=== PATIENT | female | born 1935 | race Caucasian/White ===

== ENCOUNTER 2017-03-23 17:59 | Inpatient (IN) | payer MEDICARE ==
[2017-03-23] MEDS ORDERED: RX INFO: IV CONTRAST WAS GIVEN 1 EACH MISC MISCELLANE PRN (18:30)
[2017-03-23] MEDS ORDERED: SODIUM CHLORIDE 0.9% 1,000 ML IV STA (18:30)
[2017-03-23] MEDS ORDERED: SODIUM CHLORIDE 0.9% 500 ML IV STA ×2 (18:30→20:58)
[2017-03-23] MEDS ORDERED: PANTOPRAZOLE 40 MG/10 ML VIAL IVP STA (18:30)
--- NOTE | 2017-03-23 18:37 | ED ---
GI Bleed HPI - General Chief complaint: GI Bleed Stated complaint: Rectal Bleeding Time Seen by Provider: 03/23/17 18:25 Source: patient Mode of arrival: wheelchair Limitations: no limitations - History of Present Illness Initial comments: This 81-year-old white female presents with a complaint of some rectal bleeding. She states that she has had approximately 12 episodes of bloody stools today. She relates that it is a darker blood mixed in with her stool. She was diagnosed with urinary tract infection yesterday and started taking Bactrim. This was diagnosed at a clinic near her house. She does complain of some mild diffuse abdominal pain as well. There has been no fevers. She does have a history of colitis and this seems somewhat similar. She denies any other complaints or modifying factors. She does take Motrin regularly for her right shoulder pain. She takes Motrin 800 mg approximately twice a day. She denies any blood thinners. She relates that she was diagnosed with peptic ulcer disease in the past. She also had a colonoscopy approximately 3 years ago but this was somewhat limited study. She has seen Dr. Albrecht in the past. - Related Data Home Medications Medication Instructions Recorded Confirmed Albuterol Nebulized [Ventolin 2.5 mg INHALATION RT-DAILY 10/18/14 03/23/17 Nebulized] Fluticasone/Salmeterol [Advair 2 puff INHALATION RT-BID 10/18/14 03/23/17 250-50 Diskus] Furosemide [Lasix] 20 mg PO DAILY PRN 10/18/14 03/23/17 Ibuprofen [Motrin] 800 mg PO DAILY 10/18/14 03/23/17 Metoprolol Tartrate [Lopressor] 50 mg PO DAILY 10/18/14 03/23/17 Omeprazole [PriLOSEC] 20 mg PO BID 10/18/14 03/23/17 Valsartan/Hydrochlorothiazide 1 tab PO DAILY 10/18/14 03/23/17 [Valsartan-Hctz 160-12.5 mg Tab] Sulfamethox-Tmp 800-160Mg [Bactrim 1 tab PO Q12HR 03/23/17 03/23/17 DS 800-160 mg] Allergies Allergy/AdvReac Type Severity Reaction Status Date / Time aspirin Allergy Rash/Hives Verified 03/23/17 19:06 chlorpheniramine polistirex Allergy Rash/Hives Verified 03/23/17 19:06 [From Tussionex] doxycycline Allergy Rash/Hives Verified 03/23/17 19:06 hydrocodone polistirex Allergy Rash/Hives Verified 03/23/17 19:06 [From Tussionex] levofloxacin Allergy Rash/Hives Verified 03/23/17 19:06 nickel Allergy Rash/Hives Verified 03/23/17 19:06 nitrofurantoin Allergy Rash/Hives Verified 03/23/17 19:06 nitrofurantoin Allergy Rash/Hives Verified 03/23/17 19:06 macrocrystalline [From Macrobid] Penicillins Allergy Rash/Hives Verified 03/23/17 19:06 tramadol HCl [From Ultram] Allergy Itching Verified 03/23/17 19:06 Review of Systems ROS Statement: Those systems with pertinent positive or pertinent negative responses have been documented in the HPI. ROS Other: All systems not noted in ROS Statement are negative. Past Medical History Past Medical History: Cancer, COPD, GERD/Reflux, Hypertension Additional Past Medical History / Comment(s): HX UTERINE CA, HX COLITIS, POLYPS History of Any Multi-Drug Resistant Organisms: None Reported Past Surgical History: Cholecystectomy, Hysterectomy, Joint Replacement Additional Past Surgical History / Comment(s): right knee replacement Past Anesthesia/Blood Transfusion Reactions: No Reported Reaction Past Psychological History: No Psychological Hx Reported Smoking Status: Former smoker Past Alcohol Use History: None Reported Past Drug Use History: None Reported - Past Family History Mother Family Medical History: Cancer Additional Family Medical History / Comment(s): LUNG Son(s) Family Medical History: Cancer General Exam - General Exam Comments Initial Comments: GENERAL: The patient is well nourished and well hydrated. VITAL SIGNS: Heart rate, blood pressure, respiratory rate reviewed as recorded in nurse's notes. EYES: Pupils are round and reactive. Extraocular movements are intact. No conjunctival / lid redness or swelling. ENT: No external evidence of injury, swelling, or ecchymosis. Airway is patent. Throat is clear. NECK: Nontender. No swelling or evidence of injury. No subcutaneous emphysema. Trachea is midline. No thyroid mass. HEART: Regular rate and rhythm. Good peripheral pulses. LUNGS/CHEST: Breath sounds clear and equal bilaterally. No rales, rhonchi, or wheezes. No ecchymosis, subcutaneous emphysema, or tenderness. ABDOMEN: There is mild diffuse tenderness to the abdomen. No palpable masses or organomegaly. No peritoneal signs. No abdominal wall swelling or ecchymosis. EXTREMITIES: No extremity tenderness. Normal muscle tone and function. No thoracolumbar tenderness. NEUROLOGIC: Sensation is grossly intact. Cranial nerve exam reveals face is symmetrical, tongue is midline, speech is clear. SKIN: No abrasions or ecchymosis is noted. No induration or masses noted. PSYCHIATRIC: Alert and oriented. Appropriate behavior and judgment. Limitations: no limitations Course Vital Signs 03/23/17 03/23/17 18:06 20:21 Temperature 97.2 F L 97.9 F Pulse Rate 80 76 Respiratory 18 16 Rate Blood Pressure 99/47 95/54 O2 Sat by Pulse 96 99 Oximetry Medical Decision Making - Medical Decision Making The patient was seen and examined. All diagnostics were reviewed. An IV is started and she is hydrated. She receives some Protonix intravenously. The EKG shows a normal sinus rhythm at a rate of 79. There is no acute ST-T wave changes noted. The LA interval is 158, castration is 74, and the QTc interval is 449. The laboratory is reviewed and appears that she is somewhat dehydrated. She has some renal insufficiency as well as some mild pancreatitis and leukocytosis. The computed tomography scan of abdomen and pelvis does show increased fluid in the colon possibly related to diarrhea or colitis. She has not given a urine yet but states that she did have a significant urinary tract infection which was just diagnosed at the urgent care. It is felt as though she would benefit from some IV antibiotics and these will be initiated. She is agreeable to admission. The exact cause of her GI bleed is not definitively determined. The case will be discussed with medicine in the near future and she will admitted for further treatment. - Lab Data Result diagrams: 03/23/17 18:55 03/23/17 18:55 Lab Results 03/23/17 03/23/17 03/23/17 Range/Units 18:55 18:55 18:55 WBC 17.2 H (3.8-10.6) k/uL RBC 4.12 (3.80-5.40) m/uL Hgb 11.9 (11.4-16.0) gm/dL Hct 37.4 (34.0-46.0) % MCV 90.6 (80.0-100.0) fL MCH 29.0 (25.0-35.0) pg MCHC 32.0 (31.0-37.0) g/dL RDW 14.3 (11.5-15.5) % Plt Count 406 (150-450) k/uL Neutrophils % 79 % Lymphocytes % 13 % Monocytes % 5 % Eosinophils % 2 % Basophils % 0 % Neutrophils # 13.5 H (1.3-7.7) k/uL Lymphocytes # 2.3 (1.0-4.8) k/uL Monocytes # 0.8 (0-1.0) k/uL Eosinophils # 0.4 (0-0.7) k/uL Basophils # 0.0 (0-0.2) k/uL PT 10.5 (9.0-12.0) sec INR 1.0 (<1.2) APTT 22.7 (22.0-30.0) sec Sodium 132 L (137-145) mmol/L Potassium 4.2 (3.5-5.1) mmol/L Chloride 100 (98-107) mmol/L Carbon Dioxide 15 L (22-30) mmol/L Anion Gap 17 mmol/L BUN 39 H (7-17) mg/dL Creatinine 1.70 H (0.52-1.04) mg/dL Est GFR (MDRD) Af Amer 35 (>60 ml/min/1.73 sqM) Est GFR (MDRD) Non-Af 29 (>60 ml/min/1.73 sqM) Glucose 115 H (74-99) mg/dL Plasma Lactic Acid Angelo (0.7-2.0) mmol/L Calcium 8.9 (8.4-10.2) mg/dL Total Bilirubin 0.4 (0.2-1.3) mg/dL AST 21 (14-36) U/L ALT 25 (9-52) U/L Alkaline Phosphatase 106 (38-126) U/L Total Protein 7.2 (6.3-8.2) g/dL Albumin 4.0 (3.5-5.0) g/dL Amylase 138 H (30-110) U/L Lipase 309 H (23-300) U/L Blood Type Blood Type Recheck Antibody Screen Spec Expiration Date 03/23/17 03/23/17 Range/Units 18:55 18:55 WBC (3.8-10.6) k/uL RBC (3.80-5.40) m/uL Hgb (11.4-16.0) gm/dL Hct (34.0-46.0) % MCV (80.0-100.0) fL MCH (25.0-35.0) pg MCHC (31.0-37.0) g/dL RDW (11.5-15.5) % Plt Count (150-450) k/uL Neutrophils % % Lymphocytes % % Monocytes % % Eosinophils % % Basophils % % Neutrophils # (1.3-7.7) k/uL Lymphocytes # (1.0-4.8) k/uL Monocytes # (0-1.0) k/uL Eosinophils # (0-0.7) k/uL Basophils # (0-0.2) k/uL PT (9.0-12.0) sec INR (<1.2) APTT (22.0-30.0) sec Sodium (137-145) mmol/L Potassium (3.5-5.1) mmol/L Chloride (98-107) mmol/L Carbon Dioxide (22-30) mmol/L Anion Gap mmol/L BUN (7-17) mg/dL Creatinine (0.52-1.04) mg/dL Est GFR (MDRD) Af Amer (>60 ml/min/1.73 sqM) Est GFR (MDRD) Non-Af (>60 ml/min/1.73 sqM) Glucose (74-99) mg/dL Plasma Lactic Acid Angelo 2.8 H* (0.7-2.0) mmol/L Calcium (8.4-10.2) mg/dL Total Bilirubin (0.2-1.3) mg/dL AST (14-36) U/L ALT (9-52) U/L Alkaline Phosphatase (38-126) U/L Total Protein (6.3-8.2) g/dL Albumin (3.5-5.0) g/dL Amylase (30-110) U/L Lipase (23-300) U/L Blood Type B Positive Blood Type Recheck B Pos Antibody Screen NEGATIVE Spec Expiration Date 03/26/2017 - 2352 Disposition Clinical Impression: GI bleed, Abdominal pain, Renal insufficiency, Dehydration, Pancreatitis, Leukocytosis, Colitis, Hyponatremia Disposition: ADMITTED IP TO THIS [facility] Condition: Fair Time of Disposition: 21:07 Decision Date: 03/23/17 Decision Time: 21:08
[2017-03-23 19:08] LABS: Basophils % (A) 0 %; CH 28.4; CHCM 31.4; Eosinophils # (A) 0.4 k/uL (0-0.7); Eosinophils % (A) 2 %; HCT 37.4 % (34.0-46.0); HDW 2.53; HGB 11.9 gm/dL (11.4-16.0); Luc # (Auto) 0.24; Luc % (Auto) 1; Lymphocytes # (A) 2.3 k/uL (1.0-4.8); Lymphocytes % (A) 13 %; MCV 90.6 fL (80.0-100.0); Monocytes # (A) 0.8 k/uL (0-1.0); Monocytes % (A) 5 %; Neutrophils # (A) 13.5 k/uL (1.3-7.7); Neutrophils % (A) 79 %; RBC 4.12 m/uL (3.80-5.40); RDW 14.3 % (11.5-15.5); WBC 17.2 k/uL (3.8-10.6); WBC (Perox) 17.41
[2017-03-23 19:18] LABS: Calcium 8.9 mg/dL (8.4-10.2); Potassium 4.2 mmol/L (3.5-5.1); Total Bilirubin 0.4 mg/dL (0.2-1.3); Total Protein 7.2 g/dL (6.3-8.2)
[2017-03-23 19:33] LABS: Partial Thromboplastin Time 22.7 sec (22.0-30.0); Prothrombin Time 10.5 sec (9.0-12.0)
--- NOTE | 2017-03-23 20:36 | CT ---
EXAMINATION TYPE: CT abdomen pelvis wo con DATE OF EXAM: 03/23/2017 HISTORY: Rectal bleeding today. CT DLP: 1121.60 mGycm. Automated Exposure Control for Dose Reduction was Utilized. TECHNIQUE: CT scan of the abdomen and pelvis is performed without oral or IV contrast. COMPARISON: CT abdomen and pelvis July 18, 2014 FINDINGS: Within the limitations of a non-contrast study, the following observations are made. LUNG BASES: No significant abnormality is appreciated. LIVER/GB: Liver is low dense consistent with fatty infiltration. PANCREAS: No significant abnormality is seen. SPLEEN: No significant abnormality is seen. ADRENALS: No significant abnormality is seen. KIDNEYS: No renal stones or hydronephrosis is seen bilaterally. BOWEL: Small hiatal hernia is present. Evaluation bowel is suboptimal secondary to lack of enteric co ntrast. There is no suspicious small or large bowel dilatation seen. Sigmoid colonic diverticulosis i s present without convincing CT evidence for acute diverticulitis. Fluid within colon suggests coliti s versus diarrhea, clinical correlation advised. GENITAL ORGANS: No gross abnormality seen. LYMPH NODES: No greater than 1cm abdominal or pelvic lymph nodes are appreciated. OSSEOUS STRUCTURES: There is multilevel vacuum disc phenomenon and moderate spurring throughout the v isualized thoracolumbar spine. OTHER: There is mild to moderate calcified atherotic change of aorta extending into pelvic branch ves sels. IMPRESSION: Possible colitis versus diarrhea. No bowel obstruction. Sigmoid colonic diverticulosis no sigrid.
[2017-03-23] MEDS ORDERED: metroNIDAZOLE-NS PMX 500 MG in SALINE 1 100ML.BAG IVPB STA (21:46)
[2017-03-23] MEDS ORDERED: NALOXONE 0.4 MG/ML 1 ML VIAL IV PRN (21:47)
[2017-03-23] MEDS ORDERED: HYDROmorphone 0.5 MG/0.5 ML SYRINGE IVP PRN (21:47)
[2017-03-23] MEDS ORDERED: ONDANSETRON 4 MG/2 ML VIAL IVP PRN (21:47)
[2017-03-23] MEDS ORDERED: metroNIDAZOLE 500 MG TAB PO STA (21:49)
[2017-03-23 23:24] LABS: Amorphous Sediment,Urine Rare /hpf; Appearance,Urine Clear (Clear); Bilirubin,Urine Negative (Negative); Glucose,Urine (UA) Negative (Negative); Ketones,Urine Negative (Negative); Leukocyte Esterase,Urine Trace (Negative); Mucus,Urine Rare /hpf; Nitrite,Urine Negative (Negative); Particle Count 4754; Protein,Urine Negative (Negative); RBC,Urine 9 /hpf (0-5); Specific Gravity,Urine 1.009 (1.001-1.035); Squamous Epithelial Cell,Urine 3 /hpf (0-4); UA Billing (MACRO vs. MICRO) MICRO; Urobilinogen,Urine <2.0 mg/dL (<2.0); WBC,Urine 3 /hpf (0-5)
[2017-03-24 00:21] VITALS: BMI 51.2
[2017-03-24] MEDS: ZOLPIDEM 10 MG TAB PO SCH ×2 (01:21→21:03)
[2017-03-24] MEDS: SYMBICORT 80-4.5 MCG INHALER INHALATION SCH ×2 (07:28→19:25)
[2017-03-24] MEDS: ALBUTEROL NEBULIZED 2.5 MG/3 ML INHALATION SCH (07:28)
[2017-03-24 07:42] LABS: Potassium 3.6 mmol/L (3.5-5.1); Total Bilirubin 0.4 mg/dL (0.2-1.3); Total Protein 5.9 g/dL (6.3-8.2)
[2017-03-24 08:37] LABS: Basophils % (A) 0 %; CH 28.1; CHCM 30.5; Eosinophils # (A) 0.4 k/uL (0-0.7); Eosinophils % (A) 3 %; HCT 32.2 % (34.0-46.0); HDW 2.46; Hypochromasia Moderate; Luc # (Auto) 0.17; Luc % (Auto) 1; Lymphocytes # (A) 1.5 k/uL (1.0-4.8); Lymphocytes % (A) 12 %; MCH 28.9 pg (25.0-35.0); MCHC 31.2 g/dL (31.0-37.0); MCV 92.5 fL (80.0-100.0); Mean Platelet Volume 7.1; Monocytes # (A) 0.6 k/uL (0-1.0); Monocytes % (A) 5 %; Neutrophils # (A) 9.2 k/uL (1.3-7.7); Neutrophils % (A) 78 %; RBC 3.48 m/uL (3.80-5.40); RDW 14.2 % (11.5-15.5); WBC 11.8 k/uL (3.8-10.6); WBC (Perox) 12.95
--- NOTE | 2017-03-24 09:51 | P.CONS ---
History of Present Illness - Reason for Consult Consult date: 03/24/17 GI bleed Requesting physician: Nancy Pozo - History of Present Illness 81-year-old female with a history of peptic ulcer disease, diverticulosis, uterine carcinoma 10-15 years ago without chemoradiation, colitis, COPD, hypertension, cholecystectomy. Presents with acute onset of bright red blood per rectum yesterday morning. Patient was placed on Bactrim Wednesday for suspected UTI. She took 3-4 doses. Yesterday morning she had an episode of large nonbloody diarrhea followed by multiple diarrhea episodes that were blood- tinged. Denies melena, hematemesis fever chills or weight loss. She has a history of colitis several years ago that caused rectal bleeding unknown cause. Her last EGD colonoscopy approximately 3-[address] Medellin with findings of a nonbleeding peptic ulcer, diverticulosis, and possibly a few polyps removed. Intermittent epigastric pain for more than a month with diminished appetite. She takes Motrin 800 mg 1-2 tabs daily for arthritic pain. Denies lower abdominal pain. White count 17.2 presently 11.8. Hemoglobin 11.9 presently 10. Platelet 303. INR 1.0. BUN 39. Creatinine 1.7. Presently resting comfortably. Denies abdominal pain with the exception of some mild midepigastric tenderness. Moderate size loose bowel movement this morning that was not bloody. CT without IV or oral contrast reported sigmoid colonic diverticulosis without evidence of diverticulitis. Fluid-filled colon suggestive of colitis versus diarrhea. No bowel obstruction. Review of Systems Constitutional: Denies fever, chills, sweats, weight gain, or loss. HEENT: Negative for migraines, blurred vision or loss, earaches, drainage, tinnitus, oral mucosal lesions, dysphagia, or odynophagia. CARDIAC: Hypertension. Negative for chest pain, arrhythmias, or palpitation. RESPIRATORY: COPD. Negative for shortness of breath, hemoptysis, cough, or sputum production. GI: See HPI for pertinent findings. : Negative for hematuria, urgency, frequency, polyuria, or dysuria. GYNc: Uterine carcinoma. Negative vaginal discharge. MUSCULOSKELETAL: Negative for muscle aches, swelling, arthritis, and arthralgias. NEUROLOGIC: Negative for stroke or TIA. ENDOCRINE: Negative for thyroid problems. SKIN: Negative for rash or itching. PSYCHIATRIC: Negative history for depression and anxiety All systems: negative (See HPI) Past Medical History Past Medical History: Cancer, COPD, GERD/Reflux, Hypertension Additional Past Medical History / Comment(s): HX UTERINE CA, HX COLITIS, POLYPS History of Any Multi-Drug Resistant Organisms: None Reported Past Surgical History: Cholecystectomy, Hysterectomy, Joint Replacement Additional Past Surgical History / Comment(s): right knee replacement Past Anesthesia/Blood Transfusion Reactions: No Reported Reaction Past Psychological History: No Psychological Hx Reported Smoking Status: Former smoker Past Alcohol Use History: None Reported Past Drug Use History: None Reported - Past Family History Mother Family Medical History: Cancer Additional Family Medical History / Comment(s): LUNG Son(s) Family Medical History: Cancer Medications and Allergies Home Medications Medication Instructions Recorded Confirmed Type Albuterol Nebulized [Ventolin 2.5 mg INHALATION RT-DAILY 10/18/14 03/23/17 History Nebulized] Fluticasone/Salmeterol [Advair 2 puff INHALATION RT-BID 10/18/14 03/23/17 History 250-50 Diskus] Furosemide [Lasix] 20 mg PO DAILY PRN 10/18/14 03/23/17 History Ibuprofen [Motrin] 800 mg PO DAILY 10/18/14 03/23/17 History Metoprolol Tartrate [Lopressor] 50 mg PO DAILY 10/18/14 03/23/17 History Omeprazole [PriLOSEC] 20 mg PO BID 10/18/14 03/23/17 History Valsartan/Hydrochlorothiazide 1 tab PO DAILY 10/18/14 03/23/17 History [Valsartan-Hctz 160-12.5 mg Tab] Sulfamethox-Tmp 800-160Mg [Bactrim 1 tab PO Q12HR 03/23/17 03/23/17 History DS 800-160 mg] Allergies Allergy/AdvReac Type Severity Reaction Status Date / Time aspirin Allergy Rash/Hives Verified 03/23/17 19:06 chlorpheniramine polistirex Allergy Rash/Hives Verified 03/23/17 19:06 [From Tussionex] doxycycline Allergy Rash/Hives Verified 03/23/17 19:06 hydrocodone polistirex Allergy Rash/Hives Verified 03/23/17 19:06 [From Tussionex] levofloxacin Allergy Rash/Hives Verified 03/23/17 19:06 nickel Allergy Rash/Hives Verified 03/23/17 19:06 nitrofurantoin Allergy Rash/Hives Verified 03/23/17 19:06 nitrofurantoin Allergy Rash/Hives Verified 03/23/17 19:06 macrocrystalline [From Macrobid] Penicillins Allergy Rash/Hives Verified 03/23/17 19:06 tramadol HCl [From Ultram] Allergy Itching Verified 03/23/17 19:06 Physical Exam Vitals: Vital Signs Temp Pulse Pulse Pulse Resp BP BP 03/24/17 08:00 96 112/56 03/24/17 07:47 96 03/24/17 07:45 98.3 F 95 15 101/62 03/24/17 07:40 95/51 03/24/17 07:32 96 03/24/17 07:30 96 03/24/17 00:42 98.3 F 86 16 128/58 03/23/17 23:00 97.4 F L 75 18 96/56 03/23/17 20:21 97.9 F 76 16 95/54 03/23/17 18:06 97.2 F L 80 18 99/47 Pulse Ox 03/24/17 08:00 03/24/17 07:47 03/24/17 07:45 95 03/24/17 07:40 03/24/17 07:32 03/24/17 07:30 03/24/17 00:42 93 L 03/23/17 23:00 98 03/23/17 20:21 99 03/23/17 18:06 96 Intake and Output 03/23/17 03/24/17 03/24/17 22:59 06:59 14:59 Other: Voiding Method Toilet Toilet # Voids 2 Weight 111.13 kg 111.13 kg General appearance: The patient is alert, oriented, in no acute distress. HET: Head is normocephalic and atraumatic. Pupils are equal and reactive. Oropharynx is clear without lesions. Neck: Supple without lymphadenopathy. Trachea midline. Heart: S1 S2. Regular rate and rhythm. Lungs: No crackles or wheezes are heard. Abdomen: Soft, midepigastric tenderness, nondistended with bowel sounds. No peritoneal signs. No palpable organomegaly or masses. Extremities: Normal skin color and turgor. No cyanosis, rash, ulceration, clubbing, or edema. Radial and pedal pulses are 2/4 bilaterally. Neurological: No focal deficits. Strength and sensation are grossly intact. Results CBC & Chem 7: 03/24/17 06:58 03/24/17 06:58 Labs: Abnormal Lab Results - Last 24 Hours (Table) 03/23/17 03/23/17 03/23/17 Range/Units 18:55 18:55 18:55 WBC 17.2 H (3.8-10.6) k/uL RBC (3.80-5.40) m/uL Hgb (11.4-16.0) gm/dL Hct (34.0-46.0) % Neutrophils # 13.5 H (1.3-7.7) k/uL Sodium 132 L (137-145) mmol/L Carbon Dioxide 15 L (22-30) mmol/L BUN 39 H (7-17) mg/dL Creatinine 1.70 H (0.52-1.04) mg/dL Glucose 115 H (74-99) mg/dL Plasma Lactic Acid Angelo 2.8 H* (0.7-2.0) mmol/L Calcium (8.4-10.2) mg/dL Total Protein (6.3-8.2) g/dL Albumin (3.5-5.0) g/dL Amylase 138 H (30-110) U/L Lipase 309 H (23-300) U/L Urine Blood (Negative) Ur Leukocyte Esterase (Negative) Urine RBC (0-5) /hpf Amorphous Sediment (None) /hpf Hyaline Casts (0-2) /lpf Urine Mucus (None) /hpf Urine Yeast (Budding) (None) /hpf 03/23/17 03/23/17 03/24/17 Range/Units 22:55 23:19 06:58 WBC 11.8 H (3.8-10.6) k/uL RBC 3.48 L (3.80-5.40) m/uL Hgb 10.0 L D (11.4-16.0) gm/dL Hct 32.2 L (34.0-46.0) % Neutrophils # 9.2 H (1.3-7.7) k/uL Sodium (137-145) mmol/L Carbon Dioxide (22-30) mmol/L BUN (7-17) mg/dL Creatinine (0.52-1.04) mg/dL Glucose (74-99) mg/dL Plasma Lactic Acid Angelo 2.7 H* (0.7-2.0) mmol/L Calcium (8.4-10.2) mg/dL Total Protein (6.3-8.2) g/dL Albumin (3.5-5.0) g/dL Amylase (30-110) U/L Lipase (23-300) U/L Urine Blood Moderate H (Negative) Ur Leukocyte Esterase Trace H (Negative) Urine RBC 9 H (0-5) /hpf Amorphous Sediment Rare H (None) /hpf Hyaline Casts 7 H (0-2) /lpf Urine Mucus Rare H (None) /hpf Urine Yeast (Budding) Rare H (None) /hpf 03/24/17 Range/Units 06:58 WBC (3.8-10.6) k/uL RBC (3.80-5.40) m/uL Hgb (11.4-16.0) gm/dL Hct (34.0-46.0) % Neutrophils # (1.3-7.7) k/uL Sodium 136 L (137-145) mmol/L Carbon Dioxide 18 L (22-30) mmol/L BUN 31 H (7-17) mg/dL Creatinine 1.43 H (0.52-1.04) mg/dL Glucose 102 H (74-99) mg/dL Plasma Lactic Acid Angelo (0.7-2.0) mmol/L Calcium 8.0 L (8.4-10.2) mg/dL Total Protein 5.9 L (6.3-8.2) g/dL Albumin 3.1 L (3.5-5.0) g/dL Amylase (30-110) U/L Lipase (23-300) U/L Urine Blood (Negative) Ur Leukocyte Esterase (Negative) Urine RBC (0-5) /hpf Amorphous Sediment (None) /hpf Hyaline Casts (0-2) /lpf Urine Mucus (None) /hpf Urine Yeast (Budding) (None) /hpf CT scan - abdomen: report reviewed (Dr. Norman) Assessment and Plan (1) GI bleed Narrative/Plan: 81-year-old female presents with blood-tinged diarrhea 24 hours after starting antibiotic therapy [address] imaging suggestive of possible colitis. Etiology of rectal bleeding could be diverticular in nature possible ischemic colitis possible infectious colitis. Status: Acute (2) Acute blood loss anemia Status: Acute (3) Epigastric pain Narrative/Plan: History of peptic ulcer disease. Epigastric pain 1 month with chronic nonsteroidal usage possible recurrent peptic ulcer disease possible gastritis possible esophagitis. Status: Acute Plan: 1. Stool Clostridium difficile testing if negative or absence of diarrhea we' ll proceed with EGD colonoscopy exam tomorrow; patient requests Dr. Medellin if possible. If Clostridium difficile is positive will proceed with EGD only tomorrow to rule out peptic ulcer disease. No NSAIDs or aspirin products. Protonix 40 g IV daily. CBC monitoring. Presently she is resting comfortably with last bowel movement without blood. Will allow clear liquid diet. Nothing by mouth after midnight. Will follow closely with you. Continue with empiric antibiotics including Flagyl. Will obtain sed rate CRP. The pss delivery professional has discussed the risks, benefits and alternative therapies for the above-mentioned procedure and for both sedation/analgesia as well as necessary blood product administration, if indicated, as they pertain to this patient. The patient has indicated understanding and acceptance of the risks and procedures discussed. Thank you for this kind referral and the opportunity to participate in the care of your patient. This consultation was discussed with Dr. Norman. The impression and plan of care have been directed as dictated.
[2017-03-24] MEDS: HYDROCHLOROTHIAZIDE 12.5 MG CAP PO SCH (09:56)
[2017-03-24] MEDS: METOPROLOL TARTRATE 50 MG TAB PO SCH (09:56)
[2017-03-24] MEDS: VALSARTAN 160 MG TAB PO SCH (09:56)
[2017-03-24] MEDS: metroNIDAZOLE 500 MG TAB PO SCH ×3 (09:57→21:03)
[2017-03-24] MEDS: PANTOPRAZOLE 40 MG/10 ML VIAL IV SCH (09:59)
[2017-03-24] MEDS: ACETAMINOPHEN TAB 325 MG TAB PO PRN ×2 (15:17→22:05)
[2017-03-24] MEDS: SODIUM CHLORIDE 0.9% 1,000 ML IV SCH (15:49)
[2017-03-24] MEDS ORDERED: PEG 3350-NA SULF,BICARB,CL/KCL 4,000 ML BOTTLE PO ONE (17:00)
[2017-03-24] MEDS ORDERED: ALPRAZolam 0.25 MG TAB PO PRN (17:20)
[2017-03-24] MEDS: PANTOPRAZOLE 40 MG TABLET PO SCH (17:52)
--- NOTE | 2017-03-24 20:40 | HP ---
HISTORY AND PHYSICAL CHIEF COMPLAINTS: GI bleed and diarrhea. HISTORY OF PRESENT ILLNESS: This 81-year-old woman, who is [place], with a past medical history of multiple medical problems, including COPD, history of GERD, hypertension, apparently had a UTI. Patient was taking Bactrim in the outpatient setting. Subsequently patient had diarrhea and some abdominal discomfort. The patient had up to 12 times diarrhea last night. The patient noted lower GI bleeding and she was admitted for further evaluation and treatment. The patient is followed up by Dr. Lynch in the outpatient setting. There is no history of any fever, rigor or chills. No history of headache, loss of consciousness. PAST MEDICAL HISTORY: 1. COPD. 2. GERD. 3. History of hypertension. 4. History of uterine cancer. 5. Cholecystectomy. 6. Hysterectomy. HOME MEDICATIONS: 1. Bactrim DS 1 p.o. b.i.d. 2. Albuterol 2.5 daily. 3. Valsartan/hydrochlorothiazide 160/12.5 one p.o. daily. 4. Prilosec 20 mg b.i.d. 5. Lopressor 50 mg p.o. daily. 6. Motrin 800 mg p.o. daily. 7. Lasix 20 mg daily p.r.n. 8. Advair 250/50 two puffs b.i.d. ALLERGIES: 1. ASPIRIN. 2. TUSSIONEX. 3. DOXYCYCLINE. 4. LEVAQUIN. 5. NICKEL. 6. NITROFURANTOIN. 7. PENICILLIN. 8. ULTRAM. FAMILY HISTORY: History of lung cancer in the family. SOCIAL HISTORY: History of smoking. No history of alcohol. No smoking currently. REVIEW OF SYSTEMS: ENT: No diminished hearing. No diminished vision. CARDIOVASCULAR SYSTEM: No angina, palpitations. RESPIRATORY SYSTEM: As mentioned earlier. GI: As mentioned earlier. : As mentioned earlier. NERVOUS SYSTEM: No numbness, weakness. ALLERGY/IMMUNOLOGY: No asthma, hayfever. MUSCULOSKELETAL: As mentioned earlier. HEMATOLOGY/ONCOLOGY: No history of anemia. ENDOCRINE: No history of diabetes, hypothyroidism. CONSTITUTIONAL: As mentioned earlier. DERMATOLOGY: Negative. RHEUMATOLOGY: Negative. PSYCHIATRY: As mentioned earlier. PHYSICAL EXAMINATION: Patient is alert and oriented x3. Pulse is 78, blood pressure 99/51, respiration 16, temperature 97.9, pulse ox 94% on room air. HEENT: Conjunctivae normal. NECK: No jugular venous distention. CARDIOVASCULAR SYSTEM: S1, S2 muffled. RESPIRATORY SYSTEM: Breath sounds diminished at the bases. A few scattered rhonchi and crackles. Expiratory wheezing also present. ABDOMEN: Soft. Mild diffuse tenderness in the lower part. LEGS: No edema. No swelling. NERVOUS SYSTEM: Higher functions as mentioned earlier. Cranial nerves 2 to 12 grossly intact. Moves all 4 limbs. No focal motor or sensory deficit. LYMPHATICS: No lymph node palpable in neck, axillae or groin. SKIN: No ulcer, rash, bleeding. LABS: WBC 11.8, hemoglobin is 10. Sodium 136. ASSESSMENT: 1. Abdominal pain and diarrhea, possibly colitis. Rule out C difficile colitis. 2. Increased creatinine with possible mild acute renal failure. 3. Mild acute blood loss anemia with possible gastrointestinal bleed. 4. Hyponatremia. 5. Increased amylase, present on admission, improved. RECOMMENDATIONS AND DISCUSSION: In this 81-year-old woman who presented with multiple complex medical issues, we will monitor the patient closely, continue the current medications, continue with symptomatic treatment. CT scan of the abdomen and pelvis showed features suggestive of colitis. Otherwise, repeat labs. Consult Dr. Lynch. Guarded prognosis because of the multiple complex medical issues. Further recommendations to follow. MMODL / IJN: [id number] /
[2017-03-24] MEDS: MELATONIN 3 MG TABLET PO SCH (21:03)
[2017-03-25] MEDS: SYMBICORT 80-4.5 MCG INHALER INHALATION SCH ×2 (07:12→19:29)
[2017-03-25] MEDS: ALBUTEROL NEBULIZED 2.5 MG/3 ML INHALATION SCH (07:12)
[2017-03-25 07:35] LABS: Basophils # (A) 0.1 k/uL (0-0.2); Basophils % (A) 1 %; CH 29.6; CHCM 32.8; Eosinophils # (A) 0.6 k/uL (0-0.7); Eosinophils % (A) 5 %; HCT 33.2 % (34.0-46.0); HGB 10.6 gm/dL (11.4-16.0); Luc # (Auto) 0.23; Luc % (Auto) 2; Lymphocytes % (A) 23 %; MCH 28.8 pg (25.0-35.0); MCHC 31.9 g/dL (31.0-37.0); MCV 90.6 fL (80.0-100.0); Mean Platelet Volume 8.2; Monocytes # (A) 0.6 k/uL (0-1.0); Monocytes % (A) 5 %; Neutrophils # (A) 8.6 k/uL (1.3-7.7); Neutrophils % (A) 65 %; RBC 3.66 m/uL (3.80-5.40); RDW 15.7 % (11.5-15.5); WBC 13.2 k/uL (3.8-10.6); WBC (Perox) 13.43
[2017-03-25 08:35] LABS: Anion Gap 11 mmol/L; Blood Urea Nitrogen 16 mg/dL (7-17); Calcium 8.3 mg/dL (8.4-10.2); Carbon Dioxide 19 mmol/L (22-30); Chloride 109 mmol/L (98-107); Glucose 96 mg/dL (74-99); Non-African American GFR(MDRD) 57 (>60 ml/min/1.73 sqM); Potassium 4.2 mmol/L (3.5-5.1); Sodium 139 mmol/L (137-145)
[2017-03-25] MEDS: VALSARTAN 160 MG TAB PO SCH (09:16)
[2017-03-25] MEDS: HYDROCHLOROTHIAZIDE 12.5 MG CAP PO SCH (09:16)
[2017-03-25] MEDS: PANTOPRAZOLE 40 MG/10 ML VIAL IV SCH (09:16)
[2017-03-25] MEDS: METOPROLOL TARTRATE 50 MG TAB PO SCH (09:16)
[2017-03-25] MEDS: SODIUM CHLORIDE 0.9% 1,000 ML IV SCH ×2 (09:55→19:38)
[2017-03-25] MEDS ORDERED: IV FLUID CONTINUATION 1,000 ML IV ONE (11:23)
[2017-03-25] MEDS ORDERED: PROPOFOL 10 MG/ML 20 ML VIAL IV ONE (11:25)
[2017-03-25] MEDS ORDERED: LIDOCAINE 1% INJ 10MG/ML (20 ML MDV) ONE (11:25)
--- NOTE | 2017-03-25 13:05 | P.PCN ---
Date of Procedure: 03/25/17 Procedure(s) Performed: Procedures: 1. Esophagogastroduodenoscopy and biopsy. 2. Attempted colonoscopy. Preoperative diagnosis: GI bleeding. Postoperative diagnosis: 1. Prepyloric and pyloric channel ulcers without active bleeding at the time of this exam. 2. Significant sigmoid diverticulosis with inability to advance the endoscope safely proximal to the distal sigmoid. Preparation: GoLYTELY prep. Sedation: Was provided by anesthesia. Brief clinical history: The patient is an 81-year-old female with a history of peptic ulcer disease, diverticulosis, uterine carcinoma 10-15 years ago without chemoradiation, colitis, COPD, hypertension, cholecystectomy. Presented with acute onset of bright red blood per rectum the day prior to admission. Patient was placed on Bactrim Wednesday for suspected UTI. She took 3-4 doses. Yesterday morning she had an episode of large nonbloody diarrhea followed by multiple diarrhea episodes that were blood-tinged. Denies melena, hematemesis fever chills or weight loss. She has a history of colitis several years ago that caused rectal bleeding unknown cause. Her last EGD colonoscopy approximately 3- [address] Medellin with findings of a nonbleeding peptic ulcer, diverticulosis, and possibly a few polyps removed. Intermittent epigastric pain for more than a month with diminished appetite. She takes Motrin 800 mg 1- 2 tabs daily for arthritic pain. Denies lower abdominal pain. White count 17.2 presently 11.8. Hemoglobin 11.9 presently 10. Platelet 303. INR 1.0. BUN 39. Creatinine 1.7. CT without IV or oral contrast reported sigmoid colonic diverticulosis without evidence of diverticulitis. Fluid-filled colon suggestive of colitis versus diarrhea. No bowel obstruction. Procedure: With the patient on her left lateral decubitus position and after informed consent and adequate sedation, I passed the Olympus-GIF 160 video upper endoscope through the cricopharyngeus down the esophagus. The endoscope was then passed into the stomach. There was a small sliding hiatal hernia. No obvious abnormalities were noted in the esophagus. There was a prepyloric ulcer and the pyloric channel ulcer noted both covered with white exudate with no evidence of bleeding or gastric outlet obstruction. Duodenal bulb, post bulbar area and descending duodenum appeared within normal limits. I obtained biopsy from the antrum then the endoscope was withdrawn and I proceeded with the colonoscopy. Perianal area did not show any fissures or fistulas. There were no masses felt on digital rectal examination. The Olympus CFH 190L videocolonoscope was initially used but I was not able to advance it safely in the sigmoid because of significant diverticular disease and the same was the case with the pediatric PCF Q180 AL videocolonoscope. There was no bleeding in the sigmoid. I noted low-grade internal hemorrhoids in the retroflex view in the rectum with no bleeding either. Plan: I summarize the findings to the patient and her family. Since she is not bleeding at this time will allow diet and monitor her progress and make plans based on her course.
--- NOTE | 2017-03-25 14:15 | P.CNPUL ---
History of Present Illness Consult date: 03/25/17 Requesting physician: Nancy Pozo Reason for consult: COPD Chief complaint: Rectal bleeding History of present illness: This is a 81-year-old female patient sees Dr. Lynch in our office for her COPD, was admitted on 03/30/2017 with complaints of multiple episodes of rectal bleeding at home. She was recently diagnosed with the urinary tract infection after she sought care at an urgent clinic for her lower abdominal pain and was treated with Bactrim. She has had no fevers, chills. Medical history is positive for colitis and colonic polyps and she does take Motrin on a regular basis for her shoulder pain. He has had no congestion, no wheezing, or sputum production. Get mildly short of breath with exertion, but currently in no respiratory distress. Her hemoglobin today is 10.6, is hemodynamically stable, she has had no further episodes of rectal bleeding. She is not on any blood thinners. He is going for a colonoscopy this afternoon with Dr. Giraldo. Her pulmonary standpoint her lung sounds are clear to few fine rales in the posterior basis. No wheezes, no rhonchi. Is on room air with O2 saturations 90 -98%. She has had no febrile episodes. Herbology results have been reviewed and are negative so far. She is on cefoxitin and Flagyl antibiotic coverage for her UTI and colitis. Stool was negative for C. difficile. We'll continue with her Symbicort 80/4.5 mcg twice a day. Continue following with you. Review of Systems Constitutional: Denies chills, Denies fever Eyes: denies blurred vision, denies pain Ears, nose, mouth and throat: Denies headache, Denies sore throat Cardiovascular: Denies chest pain, Denies shortness of breath Respiratory: Denies cough Gastrointestinal: Denies abdominal pain, Denies diarrhea, Denies nausea, Denies vomiting Genitourinary: Denies dysuria, Denies hematuria Musculoskeletal: Denies myalgias Integumentary: Denies pruritus, Denies rash Neurological: Denies numbness, Denies weakness Endocrine: Denies fatigue, Denies weight change Past Medical History Past Medical History: Cancer, COPD, GERD/Reflux, Hypertension Additional Past Medical History / Comment(s): HX UTERINE CA, HX COLITIS, POLYPS History of Any Multi-Drug Resistant Organisms: None Reported Past Surgical History: Cholecystectomy, Hysterectomy, Joint Replacement Additional Past Surgical History / Comment(s): right knee replacement Past Anesthesia/Blood Transfusion Reactions: No Reported Reaction Past Psychological History: No Psychological Hx Reported Smoking Status: Former smoker Past Alcohol Use History: None Reported Past Drug Use History: None Reported - Past Family History Mother Family Medical History: Cancer Additional Family Medical History / Comment(s): LUNG Son(s) Family Medical History: Cancer Medications and Allergies Home Medications Medication Instructions Recorded Confirmed Type Albuterol Nebulized [Ventolin 2.5 mg INHALATION RT-DAILY 10/18/14 03/23/17 History Nebulized] Fluticasone/Salmeterol [Advair 2 puff INHALATION RT-BID 10/18/14 03/23/17 History 250-50 Diskus] Furosemide [Lasix] 20 mg PO DAILY PRN 10/18/14 03/23/17 History Ibuprofen [Motrin] 800 mg PO DAILY 10/18/14 03/23/17 History Metoprolol Tartrate [Lopressor] 50 mg PO DAILY 10/18/14 03/23/17 History Omeprazole [PriLOSEC] 20 mg PO BID 10/18/14 03/23/17 History Valsartan/Hydrochlorothiazide 1 tab PO DAILY 10/18/14 03/23/17 History [Valsartan-Hctz 160-12.5 mg Tab] Sulfamethox-Tmp 800-160Mg [Bactrim 1 tab PO Q12HR 03/23/17 03/23/17 History DS 800-160 mg] Allergies Allergy/AdvReac Type Severity Reaction Status Date / Time aspirin Allergy Rash/Hives Verified 03/23/17 19:06 chlorpheniramine polistirex Allergy Rash/Hives Verified 03/23/17 19:06 [From Tussionex] doxycycline Allergy Rash/Hives Verified 03/23/17 19:06 hydrocodone polistirex Allergy Rash/Hives Verified 03/23/17 19:06 [From Tussionex] levofloxacin Allergy Rash/Hives Verified 03/23/17 19:06 nickel Allergy Rash/Hives Verified 03/23/17 19:06 nitrofurantoin Allergy Rash/Hives Verified 03/23/17 19:06 nitrofurantoin Allergy Rash/Hives Verified 03/23/17 19:06 macrocrystalline [From Macrobid] Penicillins Allergy Rash/Hives Verified 03/23/17 19:06 tramadol HCl [From Ultram] Allergy Itching Verified 03/23/17 19:06 Physical Exam Vitals: Vital Signs Temp Pulse Pulse Resp BP Pulse Ox 03/25/17 12:52 98.0 F 87 18 121/57 98 03/25/17 08:15 16 03/25/17 08:00 94 15 03/25/17 07:28 88 03/25/17 07:17 80 03/25/17 07:00 97.7 F 94 15 118/68 97 03/24/17 23:00 97.9 F 95 16 140/65 90 L 03/24/17 15:00 97.9 F 78 16 99/51 95 Intake and Output 03/24/17 03/25/17 03/25/17 22:59 06:59 14:59 Intake Total 600 50 Balance 600 50 Intake: IV 600 50 Sodium Chloride 0.9% 1, 600 000 ml @ 75 mls/hr IV . [id number] [facility] Rx#:[id number] Other: Voiding Method Toilet Toilet Toilet # Voids 3 2 # Bowel Movements 3 7 1 GENERAL EXAM: Alert, active, comfortable in no apparent distress. HEAD: Normocephalic. EYES: Normal reaction of pupils, equal size. NOSE: Clear with pink turbinates. THROAT: No erythema or exudates. NECK: No masses, no JVD. CHEST: No chest wall deformity. LUNGS: Equal air entry with no crackles, wheeze, rhonchi or dullness. CVS: S1 and S2 normal with no audible mumurs, regular rhythm. ABDOMEN: No hepatosplenomegaly, normal bowel sounds, no guarding or rigidity. SPINE: No scoliosis or deformity SKIN: No rashes CENTRAL NERVOUS SYSTEM: No focal deficits, tone is normal in all 4 extremities. Results - Laboratory Findings CBC and BMP: 03/25/17 07:15 03/25/17 07:15 PT/INR, D-dimer PT 10.5 sec (9.0-12.0) 03/23/17 18:55 INR 1.0 (<1.2) 03/23/17 18:55 Abnormal lab findings: Abnormal Labs 03/23/17 03/23/17 03/23/17 18:55 18:55 18:55 WBC 17.2 H RBC Hgb Hct RDW Neutrophils # 13.5 H ESR Sodium 132 L Chloride Carbon Dioxide 15 L BUN 39 H Creatinine 1.70 H Glucose 115 H Plasma Lactic Acid Angelo 2.8 H* Calcium C-Reactive Protein Total Protein Albumin Amylase 138 H Lipase 309 H Urine Blood Ur Leukocyte Esterase Urine RBC Amorphous Sediment Hyaline Casts Urine Mucus Urine Yeast (Budding) 03/23/17 03/23/17 03/24/17 22:55 23:19 06:58 WBC 11.8 H RBC 3.48 L Hgb 10.0 L D Hct 32.2 L RDW Neutrophils # 9.2 H ESR Sodium Chloride Carbon Dioxide BUN Creatinine Glucose Plasma Lactic Acid Angelo 2.7 H* Calcium C-Reactive Protein Total Protein Albumin Amylase Lipase Urine Blood Moderate H Ur Leukocyte Esterase Trace H Urine RBC 9 H Amorphous Sediment Rare H Hyaline Casts 7 H Urine Mucus Rare H Urine Yeast (Budding) Rare H 03/24/17 03/24/17 03/24/17 06:58 06:58 06:58 WBC RBC Hgb Hct RDW Neutrophils # ESR 37 H Sodium 136 L Chloride Carbon Dioxide 18 L BUN 31 H Creatinine 1.43 H Glucose 102 H Plasma Lactic Acid Angelo Calcium 8.0 L C-Reactive Protein 42.9 H Total Protein 5.9 L Albumin 3.1 L Amylase Lipase Urine Blood Ur Leukocyte Esterase Urine RBC Amorphous Sediment Hyaline Casts Urine Mucus Urine Yeast (Budding) 03/25/17 03/25/17 07:15 07:15 WBC 13.2 H RBC 3.66 L Hgb 10.6 L Hct 33.2 L RDW 15.7 H Neutrophils # 8.6 H ESR Sodium Chloride 109 H Carbon Dioxide 19 L BUN Creatinine Glucose Plasma Lactic Acid Angelo Calcium 8.3 L C-Reactive Protein Total Protein Albumin Amylase Lipase Urine Blood Ur Leukocyte Esterase Urine RBC Amorphous Sediment Hyaline Casts Urine Mucus Urine Yeast (Budding) Assessment and Plan Plan: Assessment: #1. Acute blood loss anemia anterior to lower gastrointestinal bleed #2. Abdominal pain and diarrhea, ruled out C. difficile colitis. #3. History of COPD, on Symbicort. #4. Uterine cancer. #5. History of hypertension. #6. History of GERD Plan: Continue with home dose Symbicort 80/4.5 mics inhaler and albuterol nebulized treatments. Her COPD seems to be stable, without evidence of acute exacerbation at this time. Wait the results of her colonoscopy, continue to closely follow with you. I performed a history & physical examination of the patient and discussed their management with my nurse practitioner, Cathy Chang. I reviewed the nurse practitioner's note and agree with the documented findings and plan of care. Time with Patient: Greater than 30
[2017-03-25] MEDS: PANTOPRAZOLE 40 MG TABLET PO SCH ×2 (14:36→18:25)
[2017-03-25] MEDS: metroNIDAZOLE 500 MG TAB PO SCH ×3 (14:36→21:47)
--- NOTE | 2017-03-25 17:58 | PN ---
PROGRESS NOTE DATE OF SERVICE: 03/25/2017 This 81-year-old woman, Restoration, who was admitted with GI bleed had endoscopy today. The upper GI showed pre-pyloric and pyloric channel ulcers without any active bleeding, significant sigmoid diverticulosis with inability to advance the scope safely. Proximal sigmoid was also noted by Dr. Norman. The hemoglobin today is 10.6. Patient is still complaining of some continued diarrhea after the prep. C difficile is negative. Past medical history reviewed. REVIEW OF SYSTEMS: CARDIOVASCULAR SYSTEM: No angina, palpitations. RESPIRATORY SYSTEM: No cough, hemoptysis. GI: As mentioned earlier. : No dysuria or retention. NERVOUS SYSTEM: No numbness, weakness.. CURRENT MEDICATIONS: Current medications are reviewed and include: 1. Tylenol 650 q.6 p.r.n. 2. Ventolin 2.5 q.i.d. p.r.n. 3. Xanax 0.25 t.i.d. 4. Symbicort 80/4.5 two puffs b.i.d. 5. Cefoxitin 1 gram q.8. 6. HydroDIURIL 12.5 mg a day. 7. Dilaudid. 8. Melatonin 3 mg at bedtime. 9. Lopressor 50 mg p.o. daily. 10.Flagyl 500 mg p.o. t.i.d. 11.Narcan 0.2 q.2 p.r.n. 12.Protonix. 13.Diovan. 14.Ambien. PHYSICAL EXAMINATION: Patient is alert, oriented x3. Pulse is 84, blood pressure 95/50, respiration 18, temperature 97.4, pulse ox 97% on room air. HEENT: Conjunctivae normal. NECK: No jugular venous distention. CARDIOVASCULAR SYSTEM: S1, S2 muffled. RESPIRATORY SYSTEM: Breath sounds diminished at the bases. A few scattered rhonchi and crackles. ABDOMEN: Soft, obese, non-tender. No mass palpable. LEGS: No edema. No swelling. NERVOUS SYSTEM: No focal deficit. LABS: WBC 13.2, hemoglobin 10, sodium 139, potassium 4.2. C difficile negative. ASSESSMENT: 1. Abdominal pain, diarrhea; possibly colitis. C difficile colitis ruled out. 2. Possible acute gastrointestinal bleeding and pre-pyloric and pyloric channel ulcers, status post EGD. 3. Increased creatinine with possible mild acute renal failure. 4. Mild acute blood loss anemia with a possible gastrointestinal bleed. 5. Hyponatremia. 6. Increased amylase, present on admission, improved. RECOMMENDATIONS AND DISCUSSION: I recommend to continue current medication, continue symptomatic treatment. Repeat labs. Otherwise, advance diet per Gastroenterology. Increase ambulation. Guarded prognosis because of multiple complex medical issues.. Further recommendations to follow. Please note that patient is Restoration. Guarded prognosis. Discussed with family, who understands. Further recommendations to follow. MMODL / IJN: [id number] / FAINA
[2017-03-25] MEDS: ACETAMINOPHEN TAB 325 MG TAB PO PRN (18:25)
[2017-03-25] MEDS: MELATONIN 3 MG TABLET PO SCH (21:44)
[2017-03-25] MEDS: ZOLPIDEM 10 MG TAB PO SCH (21:47)
[2017-03-26] MEDS: ACETAMINOPHEN TAB 325 MG TAB PO PRN ×2 (00:47→08:03)
[2017-03-26] MEDS: SODIUM CHLORIDE 0.9% 1,000 ML IV SCH (04:24)
[2017-03-26] MEDS: ALBUTEROL NEBULIZED 2.5 MG/3 ML INHALATION SCH (07:22)
[2017-03-26] MEDS: SYMBICORT 80-4.5 MCG INHALER INHALATION SCH (07:25)
[2017-03-26 07:53] VITALS: BP 138/69; RESP 18; TEMP 98
[2017-03-26] MEDS: METOPROLOL TARTRATE 50 MG TAB PO SCH (07:53)
[2017-03-26] MEDS: HYDROCHLOROTHIAZIDE 12.5 MG CAP PO SCH (07:53)
[2017-03-26] MEDS: PANTOPRAZOLE 40 MG TABLET PO SCH (07:53)
[2017-03-26] MEDS: metroNIDAZOLE 500 MG TAB PO SCH (07:54)
[2017-03-26] MEDS: VALSARTAN 160 MG TAB PO SCH (07:54)
[2017-03-26 09:22] LABS: Basophils % (A) 0 %; CH 28.6; CHCM 30.5; Eosinophils # (A) 0.4 k/uL (0-0.7); Eosinophils % (A) 4 %; HCT 32.8 % (34.0-46.0); HDW 2.52; HGB 10.1 gm/dL (11.4-16.0); Hypochromasia Moderate; Luc # (Auto) 0.19; Luc % (Auto) 2; Lymphocytes # (A) 3.5 k/uL (1.0-4.8); Lymphocytes % (A) 36 %; MCHC 30.8 g/dL (31.0-37.0); MCV 94.2 fL (80.0-100.0); Mean Platelet Volume 7.5; Monocytes # (A) 0.6 k/uL (0-1.0); Monocytes % (A) 6 %; Neutrophils % (A) 51 %; RBC 3.49 m/uL (3.80-5.40); RDW 14.7 % (11.5-15.5); WBC 9.7 k/uL (3.8-10.6); WBC (Perox) 9.45
[2017-03-26 10:06] LABS: Anion Gap 9 mmol/L; Blood Urea Nitrogen 13 mg/dL (7-17); Calcium 8.3 mg/dL (8.4-10.2); Carbon Dioxide 20 mmol/L (22-30); Chloride 111 mmol/L (98-107); Glucose 99 mg/dL (74-99); Non-African American GFR(MDRD) 57 (>60 ml/min/1.73 sqM); Potassium 4.1 mmol/L (3.5-5.1); Sodium 140 mmol/L (137-145)
--- NOTE | 2017-03-26 11:20 | P.PN ---
Subjective Progress Note Date: 03/26/17 Principal diagnosis: COPD exacerbation, rectal bleeding This is a 81-year-old female patient sees Dr. Lynch in our office for her COPD, was admitted on 03/30/2017 with complaints of multiple episodes of rectal bleeding at home. She was recently diagnosed with the urinary tract infection after she sought care at an urgent clinic for her lower abdominal pain and was treated with Bactrim. She has had no fevers, chills. Medical history is positive for colitis and colonic polyps and she does take Motrin on a regular basis for her shoulder pain. He has had no congestion, no wheezing, or sputum production. Get mildly short of breath with exertion, but currently in no respiratory distress. Her hemoglobin today is 10.6, is hemodynamically stable, she has had no further episodes of rectal bleeding. She is not on any blood thinners. He is going for a colonoscopy this afternoon with Dr. Giraldo. Her pulmonary standpoint her lung sounds are clear to few fine rales in the posterior basis. No wheezes, no rhonchi. Is on room air with O2 saturations 90 -98%. She has had no febrile episodes. Herbology results have been reviewed and are negative so far. She is on cefoxitin and Flagyl antibiotic coverage for her UTI and colitis. Stool was negative for C. difficile. We'll continue with her Symbicort 80/4.5 mcg twice a day. Continue following with you. On 03/26/2017 seen in follow-up. She is having more shortness of breath today and increased wheezing, but no significant sputum production. She has been afebrile, hemodynamically stable. Has had no more episodes of rectal bleeding. Today's hemoglobin is 10.1. The EGD showed prepyloric and pyloric channel ulcers without any active bleeding. Colonoscopy exam was very limited as there was difficulty advancing the scope safely proximal to the distal sigmoid. Objective - Vital Signs Vital signs: Vital Signs Temp 98.0 F 03/26/17 07:00 Pulse 97 03/26/17 08:00 Resp 18 03/26/17 08:00 BP 138/69 03/26/17 07:00 Pulse Ox 91 L 03/26/17 07:00 Intake & Output 03/25/17 03/26/17 03/26/17 18:59 06:59 18:59 Intake Total 50 180 Output Total 450 200 Balance -400 -20 Weight 111.13 kg Intake: IV 50 Oral 180 Output: Urine 450 200 Other: Voiding Method Toilet Toilet Toilet # Voids 1 1 # Bowel Movements 1 1 - Exam GENERAL EXAM: Alert, active, comfortable in no apparent distress. HEAD: Normocephalic. EYES: Normal reaction of pupils, equal size. NOSE: Clear with pink turbinates. THROAT: No erythema or exudates. NECK: No masses, no JVD. CHEST: No chest wall deformity. LUNGS: Equal air entry with no crackles, wheeze, rhonchi or dullness. CVS: S1 and S2 normal with no audible mumurs, regular rhythm. ABDOMEN: No hepatosplenomegaly, normal bowel sounds, no guarding or rigidity. SPINE: No scoliosis or deformity SKIN: No rashes CENTRAL NERVOUS SYSTEM: No focal deficits, tone is normal in all 4 extremities. - Labs CBC & Chem 7: 03/26/17 07:18 03/26/17 07:18 Labs: Abnormal Lab Results - Last 24 Hours (Table) 03/26/17 03/26/17 Range/Units 07:18 07:18 RBC 3.49 L (3.80-5.40) m/uL Hgb 10.1 L (11.4-16.0) gm/dL Hct 32.8 L (34.0-46.0) % MCHC 30.8 L (31.0-37.0) g/dL Chloride 111 H (98-107) mmol/L Carbon Dioxide 20 L (22-30) mmol/L Calcium 8.3 L (8.4-10.2) mg/dL Microbiology - Last 24 Hours (Table) 03/23/17 18:55 Blood Culture - Preliminary Blood No Growth after 48 hours 03/23/17 22:55 Urine Culture - Final Urine,Voided Assessment and Plan Plan: Assessment: #1. Acute blood loss anemia related to lower gastrointestinal bleed #2. Abdominal pain and diarrhea, ruled out C. difficile colitis. #3. History of COPD, on Symbicort. #4. Uterine cancer. #5. History of hypertension. #6. History of GERD Plan: We will increase Symbicort 80/4.5 mics inhaler to 160/4.5 mics and increase albuterol nebulized treatments 4 times a day for increased wheezing. He has had no further episodes of bleeding hemoglobin is 10.1 today. Continue to closely follow with you. I performed a history & physical examination of the patient and discussed their management with my nurse practitioner, Cathy Chang. I reviewed the nurse practitioner's note and agree with the documented findings and plan of care.
[2017-03-26 11:39] VITALS: PULSE 96
--- NOTE | 2017-03-26 11:57 | P.PN ---
Subjective Progress Note Date: 03/26/17 Principal diagnosis: GI bleed 81-year-old female with epigastric discomfort chronic NSAID usage and lower GI bleed. Status post EGD colonoscopy yesterday with findings of nonbleeding prepyloric pyloric channel ulcerations and sigmoid diverticulosis however endoscope was unable to pass beyond the sigmoid secondary to abundance of diverticula within the colon. Presently resting comfortably without recurrent bleeding. Hemoglobin 10.1. Objective - Vital Signs Vital signs: Vital Signs Temp 98.0 F 03/26/17 07:00 Pulse 96 03/26/17 11:38 Resp 18 03/26/17 08:00 BP 138/69 03/26/17 07:00 Pulse Ox 91 L 03/26/17 07:00 Intake & Output 03/25/17 03/26/17 03/26/17 18:59 06:59 18:59 Intake Total 50 180 Output Total 450 200 Balance -400 -20 Weight 111.13 kg Intake: IV 50 Oral 180 Output: Urine 450 200 Other: Voiding Method Toilet Toilet Toilet # Voids 1 1 # Bowel Movements 1 1 - Exam General appearance: The patient is alert, oriented, in no acute distress. HET: Head is normocephalic and atraumatic. Pupils are equal and reactive. Oropharynx is clear without lesions. Neck: Supple without lymphadenopathy. Trachea midline. Heart: S1 S2. Regular rate and rhythm. Lungs: No crackles or wheezes are heard. Abdomen: Soft, nontender, nondistended with bowel sounds. No peritoneal signs. No palpable organomegaly or masses. Extremities: Normal skin color and turgor. No cyanosis, rash, ulceration, clubbing, or edema. Radial and pedal pulses are 2/4 bilaterally. Neurological: No focal deficits. Strength and sensation are grossly intact. - Labs CBC & Chem 7: 03/26/17 07:18 03/26/17 07:18 Labs: Abnormal Lab Results - Last 24 Hours (Table) 03/26/17 03/26/17 Range/Units 07: 07:18 RBC 3.49 L (3.80-5.40) m/uL Hgb 10.1 L (11.4-16.0) gm/dL Hct 32.8 L (34.0-46.0) % MCHC 30.8 L (31.0-37.0) g/dL Chloride 111 H (98-107) mmol/L Carbon Dioxide 20 L (22-30) mmol/L Calcium 8.3 L (8.4-10.2) mg/dL Microbiology - Last 24 Hours (Table) 03/23/17 18:55 Blood Culture - Preliminary Blood No Growth after 48 hours 03/23/17 22:55 Urine Culture - Final Urine,Voided Assessment and Plan (1) GI bleed Narrative/Plan: Status post EGD colonoscopy nonbleeding prepyloric pyloric channel ulcerations. Sigmoid diverticulosis incomplete exam secondary to impedance of scope beyond diverticula. Etiology of GI bleed possible diverticular in nature. Status: Acute (2) Acute blood loss anemia Status: Acute (3) Epigastric pain Status: Acute Plan: 1. Discharge per medicine. Recommend no NSAIDs. Omeprazole 20 mg daily. Return to GI office in 1-2 weeks for reevaluation; discussion will be held regarding future colonoscopy evaluation possible outpatient barium enema. Assessment and plan a care discussed with Dr. Norman
[2017-03-26] MEDS ORDERED: ALBUTEROL NEBULIZED 2.5 MG/3 ML INHALATION SCH (12:00)
[2017-03-26] MEDS ORDERED: HYDROcodone/APAP 5-325MG 1 EACH TAB PO ONE (13:12)
--- NOTE | 2017-03-26 17:53 | P.DS ---
Providers Date of admission: 03/23/17 21:53 Attending physician: Nancy Pozo Consults: 03/23/17 21:48 Consult Physician Urgent Consulting Provider: Irina Medellin Consult Reason/Comments: gi bleed, abd pain Do you want consulting provider notified?: Yes 03/24/17 17:12 Consult Physician Routine Consulting Provider: Christiano Villanueva Consult Reason/Comments: knew the pt Do you want consulting provider notified?: Yes Primary care physician: [facility] Course: This 81-year-old woman with a past medical history of multiple medical problems was admitted with abdominal pain and diarrhea. Possibly secondary to acute gastroenteritis. The patient also underwent EGD and colonoscopy. EGD showed evidence of prepyloric and pyloric channel ulcers. Patient was stable. Hemoglobin is set currently 10.1. Patient be discharged in a stable condition with guarded prognosis. Total time taken 35 minutes. Patient be followed up in the outpatient setting with the Dr. Castillo in as well as Dr. Giraldo. Patient is a [place]. On exam vitals are stable. Cardio S1 and S2 normal. Abdomen soft nontender. Chest clear to auscultation. Final diagnosis 1. Abdominal pain and diarrhea possibly acute gastroenteritis versus colitis. 2. Possible acute GI bleed with mild acute blood loss anemia with the prepyloric and pyloric channel ulcer status post EGD. 3. Increased creatinine with possible mild acute renal failure with prerenal factors present on admission. 4. Hyponatremia. 5. Increased amylase present on admission improved. Patient Condition at Discharge: Fair Plan - Discharge Summary New Discharge Prescriptions: New Acetaminophen Tab [Tylenol Tab] 500 mg PO Q6H PRN #30 tablet PRN Reason: Pain Ciprofloxacin HCl [Cipro] 500 mg PO Q12HR #10 tablet metroNIDAZOLE [Flagyl] 500 mg PO TID #15 tab Pantoprazole Sodium [Protonix] 40 mg PO BID #60 tablet. Zolpidem [Ambien] 10 mg PO HS PRN tab PRN Reason: Insomnia Continue Valsartan/Hydrochlorothiazide [Valsartan-Hctz 160-12.5 mg Tab] 1 tab PO DAILY Omeprazole [PriLOSEC] 20 mg PO BID Metoprolol Tartrate [Lopressor] 50 mg PO DAILY Ibuprofen [Motrin] 800 mg PO DAILY Furosemide [Lasix] 20 mg PO DAILY PRN PRN Reason: Edema Fluticasone/Salmeterol [Advair 250-50 Diskus] 2 puff INHALATION RT-BID Albuterol Nebulized [Ventolin Nebulized] 2.5 mg INHALATION RT-DAILY Discontinued Sulfamethox-Tmp 800-160Mg [Bactrim DS 800-160 mg] 1 tab PO Q12HR Discharge Medication List Albuterol Nebulized [Ventolin Nebulized] 2.5 mg INHALATION RT-DAILY 10/18/14 [ History] Fluticasone/Salmeterol [Advair 250-50 Diskus] 2 puff INHALATION RT-BID 10/18/14 [History] Furosemide [Lasix] 20 mg PO DAILY PRN 10/18/14 [History] Ibuprofen [Motrin] 800 mg PO DAILY 10/18/14 [History] Metoprolol Tartrate [Lopressor] 50 mg PO DAILY 10/18/14 [History] Omeprazole [PriLOSEC] 20 mg PO BID 10/18/14 [History] Valsartan/Hydrochlorothiazide [Valsartan-Hctz 160-12.5 mg Tab] 1 tab PO DAILY [History] Acetaminophen Tab [Tylenol Tab] 500 mg PO Q6H PRN #30 tablet 03/26/17 [Rx] Ciprofloxacin HCl [Cipro] 500 mg PO Q12HR #10 tablet 03/26/17 [Rx] Pantoprazole Sodium [Protonix] 40 mg PO BID #60 tablet. 03/26/17 [Rx] Zolpidem [Ambien] 10 mg PO HS PRN tab 03/26/17 [Rx] metroNIDAZOLE [Flagyl] 500 mg PO TID #15 tab 03/26/17 [Rx] Follow up Appointment(s)/Referral(s): Davin Norman MD [STAFF PHYSICIAN] - 04/08/17 4:30 pm Xena Lynch MD [Primary Care Provider] - 04/07/17 1:00 pm Ambulatory/Diagnostic Orders: Complete Blood Count w/diff [LAB.AMB] Location: Determined By Patient Patient Instructions/Handouts: Gastrointestinal Bleeding (DC) Activity/Diet/Wound Care/Special Instructions: Diet soft bland no tea,, milk, coffee no nsaids Activity Limited until follow Follow-up serial hemoglobin with the Dr. Lynch Discharge Disposition: HOME SELF-CARE
[2017-03-26] MEDS ORDERED: SYMBICORT 160-4.5 MCG INHALER INHALATION SCH (20:00)
== END 2017-03-26 15:41 | disposition home or self-care (01) | DRG 378 ==
LOC: EC 17:59 → 5MS5E 21:53
PROVIDERS: ADMIT Internal Medicine; ATTEND Internal Medicine
PROC: 0DB78ZX Excision of Stomach, Pylorus, Via Natural or Artificial Opening Endoscopic, Diagnostic (ICD-10-PCS; principal; 2017-03-25 11:00)
PROC: 0DJD8ZZ Inspection of Lower Intestinal Tract, Via Natural or Artificial Opening Endoscopic (ICD-10-PCS; 2017-03-25 11:00)
DX: K57.31 Diverticulosis of large intestine without perforation or abscess with bleeding (principal); N17.9 Acute kidney failure, unspecified; J44.1 Chronic obstructive pulmonary disease with (acute) exacerbation; E87.1 Hypo-osmolality and hyponatremia; D62 Acute posthemorrhagic anemia; N39.0 Urinary tract infection, site not specified; K25.9 Gastric ulcer, unspecified as acute or chronic, without hemorrhage or perforation; K52.9 Noninfective gastroenteritis and colitis, unspecified; K44.9 Diaphragmatic hernia without obstruction or gangrene; I10 Essential (primary) hypertension; K64.8 Other hemorrhoids; K21.9 Gastro-esophageal reflux disease without esophagitis; E86.0 Dehydration; M25.511 Pain in right shoulder; Z79.1 Long term (current) use of non-steroidal anti-inflammatories (NSAID); Z79.51 Long term (current) use of inhaled steroids; Z79.899 Other long term (current) drug therapy; Z87.11 Personal history of peptic ulcer disease; Z86.010 Personal history of colon polyps; Z87.891 Personal history of nicotine dependence; Z85.42 Personal history of malignant neoplasm of other parts of uterus; Z96.651 Presence of right artificial knee joint; Z90.49 Acquired absence of other specified parts of digestive tract; Z90.710 Acquired absence of both cervix and uterus; Z53.8 Procedure and treatment not carried out for other reasons; Z88.6 Allergy status to analgesic agent; Z88.1 Allergy status to other antibiotic agents; Z88.5 Allergy status to narcotic agent; Z88.0 Allergy status to penicillin; Z88.8 Allergy status to other drugs, medicaments and biological substances; Z91.048 Other nonmedicinal substance allergy status
CPT/HCPCS: 36415; 43239; 45378; 74176; 80048; 80053; 81001; 82150; 83605; 83690; 85025; 85610; 85652; 85730; 86140; 86850; 86900; 86901; 87040; 87045; 87046; 87086; 87324; 88305; 88342; 89055; 93005; 94640; 96361; 96374; 99285

== ENCOUNTER 2017-11-15 11:14 | Emergency (ER) | payer MEDICARE ==
[2017-11-15 11:22] VITALS: RESP 16
[2017-11-15] MEDS ORDERED: MORPHINE SULFATE 4 MG/ML SYRINGE IM STA (11:59)
--- NOTE | 2017-11-15 12:20 | ED ---
General Adult HPI - General Chief complaint: Fall Stated complaint: fall Time Seen by Provider: 11/15/17 11:33 Source: patient, family, EMS, RN notes reviewed Mode of arrival: EMS Limitations: no limitations - History of Present Illness Initial comments: Patient is a pleasant 81-year-old female presenting to the emergency department following a fall. Incident occurred just prior to arrival. After using the bathroom patient got up and then slipped and fell. Patient landed on the front side of the body. Patient mostly has discomfort of her right knee. Patient also has some discomfort of left knee and nose. No loss of consciousness. Patient does not take blood thinners. Patient is able to move all extremities. Patient did have a history of previous right knee replacement. - Related Data Home Medications Medication Instructions Recorded Confirmed Albuterol Nebulized [Ventolin 2.5 mg INHALATION RT-DAILY 10/18/14 03/23/17 Nebulized] Fluticasone/Salmeterol [Advair 2 puff INHALATION RT-BID 10/18/14 03/23/17 250-50 Diskus] Furosemide [Lasix] 20 mg PO DAILY PRN 10/18/14 03/23/17 Ibuprofen [Motrin] 800 mg PO DAILY 10/18/14 03/23/17 Metoprolol Tartrate [Lopressor] 50 mg PO DAILY 10/18/14 03/23/17 Omeprazole [PriLOSEC] 20 mg PO BID 10/18/14 03/23/17 Valsartan/Hydrochlorothiazide 1 tab PO DAILY 10/18/14 03/23/17 [Valsartan-Hctz 160-12.5 mg Tab] Previous Rx's Medication Instructions Recorded Acetaminophen Tab [Tylenol Tab] 500 mg PO Q6H PRN #30 tablet 03/26/17 Ciprofloxacin HCl [Cipro] 500 mg PO Q12HR #10 tablet 03/26/17 Pantoprazole Sodium [Protonix] 40 mg PO BID #60 tablet. 03/26/17 Zolpidem [Ambien] 10 mg PO HS PRN tab 03/26/17 Allergies Allergy/AdvReac Type Severity Reaction Status Date / Time aspirin Allergy Rash/Hives Verified 03/23/17 19:06 chlorpheniramine polistirex Allergy Rash/Hives Verified 03/23/17 19:06 [From Tussionex] doxycycline Allergy Rash/Hives Verified 03/23/17 19:06 hydrocodone polistirex Allergy Rash/Hives Verified 03/23/17 19:06 [From Tussionex] levofloxacin Allergy Rash/Hives Verified 03/23/17 19:06 nickel Allergy Rash/Hives Verified 03/23/17 19:06 nitrofurantoin Allergy Rash/Hives Verified 03/23/17 19:06 nitrofurantoin Allergy Rash/Hives Verified 03/23/17 19:06 macrocrystalline [From Macrobid] Penicillins Allergy Rash/Hives Verified 03/23/17 19:06 tramadol HCl [From Ultram] Allergy Itching Verified 03/23/17 19:06 Review of Systems ROS Statement: Those systems with pertinent positive or pertinent negative responses have been documented in the HPI. ROS Other: All systems not noted in ROS Statement are negative. Constitutional: Denies: fever Eyes: Denies: eye pain ENT: Denies: ear pain Respiratory: Denies: cough Cardiovascular: Denies: chest pain Endocrine: Denies: fatigue Gastrointestinal: Denies: abdominal pain Genitourinary: Denies: dysuria Musculoskeletal: Denies: back pain Skin: Denies: rash Neurological: Denies: headache, weakness, confusion Past Medical History Past Medical History: Cancer, COPD, GERD/Reflux, Hypertension Additional Past Medical History / Comment(s): HX UTERINE CA, HX COLITIS, POLYPS History of Any Multi-Drug Resistant Organisms: None Reported Past Surgical History: Cholecystectomy, Hysterectomy, Joint Replacement Additional Past Surgical History / Comment(s): right knee replacement Past Anesthesia/Blood Transfusion Reactions: No Reported Reaction Past Psychological History: No Psychological Hx Reported Smoking Status: Former smoker Past Alcohol Use History: None Reported Past Drug Use History: None Reported - Past Family History Mother Family Medical History: Cancer Additional Family Medical History / Comment(s): LUNG Son(s) Family Medical History: Cancer General Exam Limitations: no limitations General appearance: alert, in no apparent distress Head exam: Present: atraumatic Eye exam: Present: normal appearance, PERRL ENT exam: Present: other (Mild swelling and tenderness of the nose) Neck exam: Present: normal inspection. Absent: tenderness Respiratory exam: Present: normal lung sounds bilaterally Cardiovascular Exam: Present: regular rate, normal rhythm GI/Abdominal exam: Present: soft. Absent: tenderness Extremities exam: Present: other (Right knee with mild swelling. Moderate tenderness. Left knee with mild tenderness. Distally extremities are neurovascularly intact.) Neurological exam: Present: alert, CN II-XII intact. Absent: motor sensory deficit Expanded Motor strength exam: RUE: 5, LUE: 5, RLE: 5, LLE: 5 Eye Response: (4) open spontaneously Motor Response: (6) obeys commands Verbal Response: (5) oriented Psychiatric exam: Present: normal affect, normal mood Skin exam: Present: normal color Course Vital Signs 11/15/17 11:19 Temperature 97.7 F Pulse Rate 81 Respiratory 16 Rate Blood Pressure 151/65 O2 Sat by Pulse 97 Oximetry Medical Decision Making - Medical Decision Making Patient reevaluated. Patient and family updated on results and plan. - Radiology Data Radiology results: image reviewed (Bilateral knee x-ray, chest x-ray, pelvis x- ray, nasal bone x-ray revealed no acute abnormality.) Disposition Clinical Impression: Fall, Knee contusion Disposition: HOME SELF-CARE Condition: Stable Instructions: Fall Prevention for Older Adults (ED), Knee Pain (ED) Additional Instructions: Please follow-up with primary care physician and your orthopedic doctor this week. Return for increased falls, weakness, confusion, increased swelling, worsening symptoms or other concerns. Is patient prescribed a controlled substance at d/c from ED?: No Referrals: Xena Lynch MD [Primary Care Provider] - 1-2 days Time of Disposition: 13:08
--- NOTE | 2017-11-15 12:48 | XR ---
EXAMINATION TYPE: XR chest 2V DATE OF EXAM: 11/15/2017 COMPARISON: 05/30/2011 HISTORY: Chest pain after fall TECHNIQUE: Frontal and lateral views of the chest are obtained. FINDINGS: There is no focal air space opacity, pleural effusion, or pneumothorax seen. The cardiac silhouette size is within normal limits. Advanced arthropathy is seen of the glenohumeral joints. IMPRESSION: No acute cardiopulmonary process.
--- NOTE | 2017-11-15 12:50 | XR ---
EXAMINATION TYPE: XR pelvis AP view DATE OF EXAM: 11/15/2017 CLINICAL HISTORY: Pelvic pain after a fall. TECHNIQUE: A single AP view of the pelvis is obtained. COMPARISON: None. FINDINGS: There is no acute fracture/dislocation evident in the pelvis. The hip and sacroiliac join ts appear symmetric with moderate degenerative change. The overlying soft tissue appears unremarkabl e. Chronic diastases of the pubic symphysis is noted, unchanged from the prior CT abdomen pelvis date d 03/23/2017 IMPRESSION: There is no acute fracture or dislocation in the pelvis.
--- NOTE | 2017-11-15 12:52 | XR ---
EXAMINATION TYPE: XR nasal bone DATE OF EXAM: 11/15/2017 COMPARISON: NONE HISTORY: Fall and nasal pain TECHNIQUE: 3 views of the nasal bone were obtained FINDINGS: There is minimal leftward nasal septal deviation. Nasal septum appears intact. Nasal bone a lso appears intact as does the maxillary spine. Multiple dental fillings are seen. Paranasal sinuses are well aerated. Orbits are grossly intact. IMPRESSION: No evidence of nasal bone fracture.
[2017-11-15] MEDS ORDERED: MORPHINE SULFATE 4 MG/ML SYRINGE ONE (12:54)
--- NOTE | 2017-11-15 12:54 | XR ---
EXAMINATION TYPE: XR knee complete bilateral DATE OF EXAM: 11/15/2017 CLINICAL HISTORY: Bilateral knee pain after fall TECHNIQUE: Three views of the bilateral knees were obtained. COMPARISON: None. FINDINGS: There is no acute fracture/dislocation evident in either knee. There is a right knee arthr oplasty in place with heterotopic ossification. No evidence of periprosthetic lucency to suggest loos ening thickening. Well-corticated superior patellar pole probable enthesophyte is seen on the right. On the left there is diffuse osseous demineralization and moderate and arthropathy demonstrated as luis int space narrowing, opposing surface sclerosis and marginal osteophytes. No suprapatellar joint effu maximiliano of either knee. IMPRESSION: There is no acute fracture or dislocation in either knee. Right knee arthroplasty withou t hardware fracture or loosening and left moderate tricompartmental uropathy.
[2017-11-15 13:45] VITALS: BP 149/80; PULSE 78; TEMP 97.8
== END 2017-11-15 13:35 | disposition home or self-care (01) ==
LOC: EC 11:14
DX: S80.02XA Contusion of left knee, initial encounter (principal); S80.01XA Contusion of right knee, initial encounter; J34.89 Other specified disorders of nose and nasal sinuses; J44.9 Chronic obstructive pulmonary disease, unspecified; K21.9 Gastro-esophageal reflux disease without esophagitis; I10 Essential (primary) hypertension; Z85.42 Personal history of malignant neoplasm of other parts of uterus; Z87.891 Personal history of nicotine dependence; Z96.651 Presence of right artificial knee joint; Z79.51 Long term (current) use of inhaled steroids; Z79.899 Other long term (current) drug therapy; Z88.6 Allergy status to analgesic agent; Z88.1 Allergy status to other antibiotic agents; Z88.8 Allergy status to other drugs, medicaments and biological substances; Z88.0 Allergy status to penicillin; Z91.048 Other nonmedicinal substance allergy status; W18.11XA Fall from or off toilet without subsequent striking against object, initial encounter; Y92.002 Bathroom of unspecified non-institutional (private) residence as the place of occurrence of the external cause
CPT/HCPCS: 70160; 71046; 72170; 99283

== ENCOUNTER 2018-06-15 12:45 | Emergency (ER) | payer MEDICARE ==
--- NOTE | 2018-06-15 14:39 | ED ---
Headache HPI - General Chief Complaint: Headache Stated Complaint: Headache, shooting pain through sides of head Time Seen by Provider: 06/15/18 14:33 Source: RN notes reviewed, old records reviewed Mode of arrival: wheelchair Limitations: no limitations - History of Present Illness Initial Comments: This is an 82-year-old female to the ER for evaluation. Presents today for evaluation regards to headache. Patient of trip and fall leading to headache. No significant traumatic injury noted on exam. No other traumatic injury or pitting the patient complains of. Patient has taken Motrin Tylenol just a chronic pain medication but they'll not helping relieve her headache. Otherwise patient currently has no new complaints. Patient and headache coming on and off for about 3 weeks MD Complaint: headache -: week(s) Onset Description: gradual Location: frontal Severity: mild Severity scale (1-10): 3 Quality: aching, throbbing Consistency: constant Improves With: nothing Worsens With: none Context: recent head injury Associated Symptoms: other (None) Other Symptoms: other (None) Treatments Prior to Arrival: Ibuprofen, prescription analgesic - Related Data Home Medications Medication Instructions Recorded Confirmed Metoprolol Tartrate [Lopressor] 50 mg PO DAILY 10/18/14 06/15/18 Omeprazole [PriLOSEC] 20 mg PO BID 10/18/14 06/15/18 Ascorbic Acid [Vitamin C] 1,000 mg PO DAILY 06/15/18 06/15/18 Cholecalciferol [Vitamin D3] 1,000 unit PO DAILY 06/15/18 06/15/18 HYDROcodone/APAP 7.5-325MG [[place] 1 tab PO Q6HR PRN 06/15/18 06/15/18 7.5-325] Losartan Potassium 100 mg PO DAILY 06/15/18 06/15/18 Multivitamin,Therapeutic [Thera] 1 tab PO DAILY 06/15/18 06/15/18 Previous Rx's Medication Instructions Recorded Zolpidem [Ambien] 10 mg PO HS PRN tab 03/26/17 Allergies Allergy/AdvReac Type Severity Reaction Status Date / Time aspirin Allergy Rash/Hives Verified 06/15/18 14:35 chlorpheniramine polistirex Allergy Rash/Hives Verified 06/15/18 14:35 [From Tussionex] doxycycline Allergy Rash/Hives Verified 06/15/18 14:35 hydrocodone polistirex Allergy Rash/Hives Verified 06/15/18 14:35 [From Tussionex] levofloxacin Allergy Rash/Hives Verified 06/15/18 14:35 nickel Allergy Rash/Hives Verified 06/15/18 14:35 nitrofurantoin Allergy Rash/Hives Verified 06/15/18 14:35 nitrofurantoin Allergy Rash/Hives Verified 06/15/18 14:35 macrocrystalline [From Macrobid] Penicillins Allergy Rash/Hives Verified 06/15/18 14:35 tramadol HCl [From Ultram] Allergy Itching Verified 06/15/18 14:35 Review of Systems ROS Statement: Those systems with pertinent positive or pertinent negative responses have been documented in the HPI. ROS Other: All systems not noted in ROS Statement are negative. Past Medical History Past Medical History: Cancer, COPD, GERD/Reflux, Hypertension Additional Past Medical History / Comment(s): HX UTERINE CA, HX COLITIS, POLYPS History of Any Multi-Drug Resistant Organisms: None Reported Past Surgical History: Cholecystectomy, Hysterectomy, Joint Replacement Additional Past Surgical History / Comment(s): right knee replacement Past Anesthesia/Blood Transfusion Reactions: No Reported Reaction Past Psychological History: No Psychological Hx Reported Smoking Status: Former smoker Past Alcohol Use History: None Reported Past Drug Use History: None Reported - Past Family History Mother Family Medical History: Cancer Additional Family Medical History / Comment(s): LUNG Son(s) Family Medical History: Cancer General Exam - General Exam Comments Initial Comments: No neurological deficit noted Limitations: no limitations General appearance: alert, in no apparent distress Head exam: Present: atraumatic, normocephalic, normal inspection Eye exam: Present: normal appearance, PERRL, EOMI. Absent: scleral icterus, conjunctival injection, periorbital swelling ENT exam: Present: normal exam, mucous membranes moist Neck exam: Present: normal inspection. Absent: tenderness, meningismus, lymphadenopathy Respiratory exam: Present: normal lung sounds bilaterally. Absent: respiratory distress, wheezes, rales, rhonchi, stridor Cardiovascular Exam: Present: regular rate, normal rhythm, normal heart sounds. Absent: systolic murmur, diastolic murmur, rubs, gallop, clicks GI/Abdominal exam: Present: soft, normal bowel sounds. Absent: distended, tenderness, guarding, rebound, rigid Extremities exam: Present: normal inspection, full ROM, normal capillary refill. Absent: tenderness, pedal edema, joint swelling, calf tenderness Back exam: Present: normal inspection Neurological exam: Present: alert, oriented X3, CN II-XII intact Psychiatric exam: Present: normal affect, normal mood Skin exam: Present: warm, dry, intact, normal color. Absent: rash Course Vital Signs 06/15/18 06/15/18 13:27 15:30 Temperature 97.7 F Pulse Rate 97 95 Respiratory 18 16 Rate Blood Pressure 164/91 174/79 O2 Sat by Pulse 94 L 95 Oximetry - Reevaluation(s) Reevaluation #1: 06/15/18 15:47 Medical records reviewed Reevaluation #2: 06/15/18 15:47 Patient can be discharged home Medical Decision Making - Medical Decision Making 82 female the ER for evaluation, positive headache. At this time patient can be discharged home, CT negative for acute disease - EKG Data -: EKG Interpreted by Me (EKG shows sinus tachycardia rate of 101, RI 140, QRS 74, QTc 466) - Radiology Data Radiology results: report reviewed (CT brain is negative for acute disease), image reviewed Disposition Clinical Impression: Headache Disposition: HOME SELF-CARE Condition: Good Instructions: Acute Headache (ED) Is patient prescribed a controlled substance at d/c from ED?: No Referrals: Xena Lynch MD [Primary Care Provider] - 1-2 days
[2018-06-15] MEDS ORDERED: diphenhydrAMINE 25 MG CAP PO STA (14:47)
[2018-06-15] MEDS ORDERED: PROCHLORPERAZINE 5 MG TAB PO STA (14:47)
[2018-06-15] MEDS ORDERED: predniSONE 20 MG TAB PO STA (14:47)
--- NOTE | 2018-06-15 15:30 | CT ---
EXAMINATION TYPE: CT brain lasha simmons DATE OF EXAM: 06/15/2018 COMPARISON: None HISTORY: DIZZINESS CT DLP: 1439.[address] of the brain was performed. The ventricles, basal cisterns and sulci overlying the cerebral convexities demonstrate mild enlargem ent. There is no evidence for intracranial hemorrhage or sulcal effacement. There is decreased attenuatio n about the periventricular white matter and deep white matter of both cerebral hemispheres, compatib le with chronic small vessel ischemia. No mass effects are seen. If symptoms persist consider MRI. Osseous calvarium is intact. IMPRESSION: 1. Age related atrophic and chronic small vessel ischemic change without acute intracranial process seen at this time. CT Cervical Spine: Unenhanced CT of the cervical spine was performed with bone and soft tissue window settings submitted . Coronal and sagittal reconstruction is obtained. There is normal alignment and prevertebral soft tissues. No evidence for acute cervical fracture . Scattered degenerative disc disease and spondylosis. Biapical scarring. Small nonspecific left thyr oid nodule. IMPRESSION: 1. No evidence for acute fracture or subluxation of the cervical spine.
[2018-06-15] MEDS ORDERED: IBUPROFEN 800 MG TAB PO STA (15:43)
[2018-06-15 16:14] VITALS: BP 158/81; PULSE 99; RESP 18; TEMP 98.5
== END 2018-06-15 16:19 | disposition home or self-care (01) ==
LOC: EC 12:45
DX: R51 Headache (principal); K21.9 Gastro-esophageal reflux disease without esophagitis; I10 Essential (primary) hypertension; Z85.42 Personal history of malignant neoplasm of other parts of uterus; Z87.891 Personal history of nicotine dependence; Z79.899 Other long term (current) drug therapy; Z88.6 Allergy status to analgesic agent; Z88.1 Allergy status to other antibiotic agents; Z88.0 Allergy status to penicillin; Z88.5 Allergy status to narcotic agent; Z88.8 Allergy status to other drugs, medicaments and biological substances; Z96.651 Presence of right artificial knee joint; Z53.29 Procedure and treatment not carried out because of patient's decision for other reasons
CPT/HCPCS: 93005; 72125; 70450; 99284; S0183; J7512

== ENCOUNTER 2022-11-16 16:46 | Inpatient (IN) | payer MEDICARE ==
[2022-11-16] MEDS ORDERED: HYDROcodone/APAP 7.5-325MG 1 EACH TAB PO ONE (18:00)
[2022-11-16] MEDS ORDERED: HEPARIN SODIUM 1,000 UN/ML (10ML VL) IV PRN (18:02)
[2022-11-16] MEDS ORDERED: NALOXONE 0.4 MG/ML 1 ML VIAL IV PRN (18:03)
[2022-11-16] MEDS ORDERED: ACETAMINOPHEN TAB 325 MG TAB PO PRN (18:03)
[2022-11-16] MEDS: HEPARIN SOD,PORK IN 0.45% NACL 25,000 UNIT in 0.45% NACL 1 250ML.BAG IV SCH (18:53)
[2022-11-16] MEDS: SODIUM CHLORIDE 0.9% 1,000 ML IV SCH (18:53)
--- NOTE | 2022-11-16 21:09 | ED ---
General Adult HPI - General Chief complaint: Shortness of Breath Stated complaint: SOB Time Seen by Provider: 11/16/22 17:19 Source: patient Mode of arrival: ambulatory Limitations: no limitations - History of Present Illness Initial comments: This patient is an 86-year-old woman transferred here from [facility] to have further evaluation and treatment of pulmonary embolism. The patient reportedly noted shortness of breath which had started increasing after about 5 in the morning. She also is having some substernal chest pains and the re did appear to be a pleuritic component. At the other facility the patient had CT angiogram of the chest which did show reportedly a pulmonary embolism of the segmental branches of the right middle and lower lobe reportedly no evidence of RV strain. The patient was started on heparin. Patient also reported to be found in atrial fibrillation which was reportedly Onset. Heart rate has been in the 90s to low 100s. -: hour(s) Location: chest Radiation: neck Quality: aching Consistency: intermittent Improves with: none Worsens with: other (Deep breath) Associated Symptoms: shortness of breath Treatments Prior to Arrival: none - Related Data Home Medications Medication Instructions Recorded Confirmed Metoprolol Tartrate [Lopressor] 50 mg PO DAILY 10/18/14 11/16/22 Omeprazole [PriLOSEC] 20 mg PO DAILY 10/18/14 11/16/22 HYDROcodone/APAP 7.5-325MG [[place] 1 tab PO Q8H 06/15/18 11/16/22 7.5-325] Albuterol Nebulized [Ventolin 2.5 mg INHALATION RT-BID PRN 11/16/22 11/16/22 Nebulized] Fluticasone Propion/Salmeterol 2 puff INHALATION RT-DAILY 11/16/22 11/16/22 [Advair Hfa 230-21 Mcg Inhaler] Furosemide [Lasix] 40 mg PO DAILY 11/16/22 11/16/22 Losartan Potassium 100 mg PO DAILY 11/16/22 11/16/22 Allergies Allergy/AdvReac Type Severity Reaction Status Date / Time aspirin Allergy Rash/Hives Verified 11/16/22 19:15 chlorpheniramine polistirex Allergy Rash/Hives Verified 11/16/22 19:15 [From Tussionex] doxycycline Allergy Rash/Hives Verified 11/16/22 19:15 hydrocodone polistirex Allergy Rash/Hives Verified 11/16/22 19:15 [From Tussionex] levofloxacin Allergy Rash/Hives Verified 11/16/22 19:15 nickel Allergy Rash/Hives Verified 11/16/22 19:15 nitrofurantoin Allergy Nausea & Verified 11/16/22 19:15 Vomiting & Diarrhea nitrofurantoin Allergy Nausea & Verified 11/16/22 19:15 macrocrystalline Vomiting & [From Macrobid] Diarrhea Penicillins Allergy Rash/Hives Verified 11/16/22 19:15 tramadol HCl [From Ultram] Allergy Itching Verified 11/16/22 19:15 Review of Systems ROS Statement: Those systems with pertinent positive or pertinent negative responses have been documented in the HPI. ROS Other: All systems not noted in ROS Statement are negative. Constitutional: Denies: fever, chills Respiratory: Reports: as per HPI, dyspnea. Denies: cough Cardiovascular: Reports: as per HPI, chest pain, palpitations Gastrointestinal: Denies: abdominal pain, vomiting, diarrhea Genitourinary: Denies: dysuria, hematuria Musculoskeletal: Denies: back pain Skin: Denies: rash Neurological: Denies: headache, weakness Past Medical History Past Medical History: Cancer, COPD, GERD/Reflux, Hypertension Additional Past Medical History / Comment(s): HX UTERINE CA, HX COLITIS, POLYPS History of Any Multi-Drug Resistant Organisms: None Reported Past Surgical History: Cholecystectomy, Hysterectomy, Joint Replacement Additional Past Surgical History / Comment(s): right knee replacement Past Anesthesia/Blood Transfusion Reactions: No Reported Reaction Past Psychological History: No Psychological Hx Reported Past Alcohol Use History: None Reported Past Drug Use History: None Reported - Past Family History Mother Family Medical History: Cancer Additional Family Medical History / Comment(s): LUNG Son(s) Family Medical History: Cancer General Exam General appearance: alert, in no apparent distress Head exam: Present: atraumatic, normocephalic Eye exam: Present: normal appearance. Absent: scleral icterus, conjunctival injection Neck exam: Present: normal inspection Respiratory exam: Absent: respiratory distress, wheezes, rales, rhonchi, stridor Cardiovascular Exam: Present: tachycardia, irregular rhythm, normal heart sounds . Absent: systolic murmur, diastolic murmur, rubs, gallop GI/Abdominal exam: Present: soft. Absent: distended, tenderness, guarding, rebound, rigid Extremities exam: Present: normal inspection, normal capillary refill. Absent: pedal edema, calf tenderness Back exam: Present: normal inspection. Absent: CVA tenderness (R), CVA tenderness (L) Neurological exam: Present: alert Skin exam: Present: warm, dry, intact, normal color. Absent: rash Course Vital Signs 11/16/22 11/16/22 11/16/22 16:57 18:09 20:00 Temperature 97.9 F Pulse Rate 130 H 118 H 133 H Respiratory 24 24 18 Rate Blood Pressure 120/87 123/79 130/75 O2 Sat by Pulse 97 95 95 Oximetry 11/16/22 11/16/22 11/16/22 21:00 22:00 23:00 Temperature Pulse Rate 112 H 131 H 123 H Respiratory 18 18 18 Rate Blood Pressure 135/74 O2 Sat by Pulse 97 Oximetry 11/17/22 11/17/22 11/17/22 00:00 02:00 03:00 Temperature Pulse Rate 149 H 123 H 110 H Respiratory 18 Rate Blood Pressure 121/97 95/81 O2 Sat by Pulse 95 95 Oximetry 11/17/22 11/17/22 11/17/22 03:30 04:00 05:00 Temperature Pulse Rate 120 H 121 H 117 H Respiratory 18 18 18 Rate Blood Pressure 101/58 101/58 102/80 O2 Sat by Pulse 94 L 95 95 Oximetry 11/17/22 11/17/22 11/17/22 05:06 05:15 06:00 Temperature Pulse Rate 108 H 117 H 120 H Respiratory 18 Rate Blood Pressure 136/74 O2 Sat by Pulse 94 L Oximetry 11/17/22 11/17/22 11/17/22 08:00 08:16 08:28 Temperature Pulse Rate 134 H 122 H 121 H Respiratory 22 Rate Blood Pressure 111/82 O2 Sat by Pulse 94 L Oximetry 11/17/22 11/17/22 11/17/22 09:46 11:24 12:08 Temperature Pulse Rate 107 H 95 116 H Respiratory 20 20 Rate Blood Pressure 102/63 104/69 O2 Sat by Pulse 94 L 95 Oximetry 11/17/22 11/17/22 11/17/22 12:16 12:23 13:00 Temperature Pulse Rate 116 H 113 H Respiratory 20 22 Rate Blood Pressure 95/59 95/59 O2 Sat by Pulse 94 L 92 L Oximetry 11/17/22 11/17/22 11/17/22 14:00 14:49 14:59 Temperature Pulse Rate 98 105 H 105 H Respiratory 24 Rate Blood Pressure 99/62 O2 Sat by Pulse 92 L Oximetry Medical Decision Making - Medical Decision Making This patient is an 86-year-old woman transferred here to have further treatment for acute pulmonary embolism as well as further cardiac evaluation for what a ppears to be new onset atrial fibrillation. I discussed patient's case with admitting physician and with cardiology. There treatment recommendations are incorporated. Was pt. sent in by a medical professional or institution (, PA, HVAC DESIGNER, urgent care, hospital, or long-term...) When possible be specific @ -Patient is sent from outside hospital to have admission Did you speak to anyone other than the patient for history (EMS, parent, family, police, friend...)? What history was obtained from this source @ -[No] Did you review nursing and triage notes (agree or disagree)? Why? @ -[I reviewed and agree with nursing and triage notes] Were old charts reviewed (outside hosp., previous admission, EMS record, old EKG, old radiological studies, urgent care reports/EKG's, long-term records)? Report findings @ -[I reviewed the transfer paperwork which included lab results, ECG, CT report Differential Diagnosis (chest pain, altered mental status, abdominal pain women, abdominal pain men, vaginal bleeding, weakness, fever, dyspnea, syncope, headache, dizziness, GI bleed, back pain, seizure, CVA, palpatations, mental health, musculoskeletal)? @ -[Differential Chest Pain: Stable Angina, Unstable Angina, STEMI, NSTEMI Aortic Dissection, Pneumothorax, pulmonary embolism, Musculoskeletal, Esophageal Spasm GERD, Cholecystitis, Pancreatitis, Zoster, this is not meant to be an all-inclusive list. EKG interpreted by me (3pts min.). @ -[ X-rays interpreted by me (1pt min.). @ -[None done] CT interpreted by me (1pt min.). @ -[None done] U/S interpreted by me (1pt. min.). @ -[None done] What testing was considered but not performed or refused? (CT, X-rays, U/S, labs)? Why? @ -[None] What meds were considered but not given or refused? Why? @ -[None] Did you discuss the management of the patient with other professionals (brook cuevas i.e. , PA, HVAC DESIGNER, lab, RT, psych nurse, social media marketing manager, media operator, teacher, electoral officer, disability case manager)? Give summary @ -[As above, case discussed with admitting physician and with cardiology. Was smoking cessation discussed for >3mins.? @ -[No] Was critical care preformed (if so, how long)? @ -[No] Were there social determinants of health that impacted care today? How? (Homele ssness, low income, unemployed, alcoholism, drug addiction, transportation, low edu. Level, literacy, decrease access to med. care, detention, rehab)? @ -[No] Was there de-escalation of care discussed even if they declined (Discuss DNR or withdrawal of care, Hospice)? DNR status @ -[No] What co-morbidities impacted this encounter? (DM, HTN, Smoking, COPD, CAD, Cancer, CVA, ARF, Chemo, Hep., AIDS, mental health diagnosis, sleep apnea, morbid obesity)? @ -[None] Was patient admitted / discharged? Hospital course, mention meds given and route, prescriptions, significant lab abnormalities, going to OR and other pertinent info. @ -[Patient is admitted for further treatment and evaluation. Undiagnosed new problem with uncertain prognosis? @ -[No] Drug Therapy requiring intensive monitoring for toxicity (Heparin, Nitro, Insulin, Cardizem)? @ -[heparin Were any procedures done? @ -[No] Diagnosis/symptom? @ -[Acute pulmonary embolism Acute atrial fibrillation, rapid ventricular response Acute, or Chronic, or Acute on Chronic? @ -[Acute Uncomplicated (without systemic symptoms) or Complicated (systemic symptoms)? @ -[Complicated Side effects of treatment? @ -[No] Exacerbation, Progression, or Severe Exacerbation? @ -[No] Poses a threat to life or bodily function? How? (Chest pain, [place], [place], pneumonia, PE, COPD, DKA, ARF, appy, cholecystitis, CVA, Diverticulitis, Homicidal, Suicidal, threat to staff... and all critical care pts) @ -[Yes untreated pulmonary embolism may worsen to heart failure or respiratory failure. - Lab Data Result diagrams: 11/23/22 09:06 11/23/22 09:06 Disposition Clinical Impression: Pulmonary embolism, Chest pain, Atrial fibrillation Disposition: ADMITTED IP TO THIS HOSP Condition: Serious Is patient prescribed a controlled substance at d/c from ED?: No
[2022-11-16] MEDS: HYDROcodone/APAP 7.5-325MG 1 EACH TAB PO SCH (21:55)
[2022-11-17 01:28] LABS: INR 1.1 (<1.2); Partial Thromboplastin Time 60.3 sec (22.0-30.0)
[2022-11-17] MEDS: MELATONIN 5 MG TABLET PO SCH ×2 (01:33→21:35)
[2022-11-17] MEDS: METOPROLOL TARTRATE 25 MG TAB PO SCH ×3 (01:34→21:35)
[2022-11-17] MEDS ORDERED: IPRATROPIUM-ALBUTEROL 3 ML NEB INHALATION PRN (04:27)
[2022-11-17 04:57] LABS: Basophils % (A) 0 %; Eosinophils # (A) 0.2 k/uL (0-0.7); Eosinophils % (A) 1 %; HCT 41.3 % (34.0-46.0); Lymphocytes # (A) 2.2 k/uL (1.0-4.8); Lymphocytes % (A) 17 %; MCHC 31.6 g/dL (31.0-37.0); MCV 91.8 fL (80.0-100.0); Mean Platelet Volume 7.4; Monocytes # (A) 0.7 k/uL (0-1.0); Monocytes % (A) 5 %; Neutrophils # (A) 9.7 k/uL (1.3-7.7); Neutrophils % (A) 75 %; Platelet Count 276 k/uL (150-450); WBC 12.9 k/uL (3.8-10.6)
[2022-11-17] MEDS: HYDROcodone/APAP 7.5-325MG 1 EACH TAB PO SCH ×3 (05:50→21:35)
--- NOTE | 2022-11-17 05:51 | P.CNPUL ---
History of Present Illness Consult date: 11/17/22 Requesting physician: Musa Duran Reason for consult: pulmonary embolism Chief complaint: Shortness of breath and right-sided chest pain History of present illness: I am seeing this patient in new consultation today 11/17/2022 in the emergency room for right-sided pulmonary embolism. Patient is an 86-year-old white female with past medical history significant for COPD, CHF, hypertension, uterine cancer status post hysterectomy, morbid obesity, and is a remote ex-smoker. She has been seen by Dr. Lynch in the past for COPD. Patient's currently on a combination of Advair and albuterol inhalers. Patient has reportedly had a recent hospital stay at [facility] between October 26 and November 01 for CHF exacerbation. She has been quite sedentary. Early yesterday morning, the patie nt started to experience shortness of breath and right-sided chest pain, that awoke her from her sleep. She went to [facility], and underwent a chest CTA. Clinical impression reads that there is an acute pulmonary embolism in the segmental branches of the right middle and lower lobes with subsegmental extension. There was apparently no CT evidence of right ventricular heart strain. Images are not available at this time. Patient was also found to be in new onset atrial fibrillation. Patient was started on a high intensity heparin infusion, and transferred to [facility]. Patient is currently sitting up in bed, on 3 L nasal cannula, in no acute distress. Chest x-ray shows no acute cardiopulmonary process. Patient denies any previous history of DVTs or PEs, recent travel, trauma. She does report that her daughter has history of DVT. Labs this morning are pending. Troponin levels were reportedly elevated at outside facility. Lungs are bronchospastic on auscultation. Patient is on a combination of albuterol and Symbicort inhalers. Heart rhythm is currently atrial fibrillation with rapid ventricular rate ranging from 100 to 120 bpm. Otherwise, the patient is hemodynamicly stable. Review of Systems REVIEW OF SYSTEMS: CONSTITUTIONAL: Denies any recent significant weight loss or weight gain, fever. EYES: Denies change in vision. EARS, NOSE, MOUTH, THROAT: Denies headaches, denies sore throat. CARDIOVASCULAR: Denies palpitations or syncopal episodes. Admits right-sided chest pain that radiated upper right jaw RESPIRATORY: Denies cough, congestion or hemoptysis. Admits shortness of breath GASTROINTESTINAL: Denies change in appetite, abdominal pain, nausea and vomiting, or diarrhea GENITOURINARY: Denies hematuria. Admits recent urinary tract infection treated on outpatient basis with Bactrim. She still reporting symptoms of urinary frequency and urgency MUSKULOSKELETAL: Denies pain, denies swelling. INTEGUMENTARY: Denies rash, denies eczema. NEUROLOGICAL: Denies recent memory loss, no recent seizure activity. PSYCHIATRIC: Denies anxiety, denies depression. HEMATOLOGIC/LYMPHATIC: Denies anemia, denies enlarged lymph node Past Medical History Past Medical History: Cancer, COPD, GERD/Reflux, Hypertension Additional Past Medical History / Comment(s): HX UTERINE CA, HX COLITIS, POLYPS History of Any Multi-Drug Resistant Organisms: None Reported Past Surgical History: Cholecystectomy, Hysterectomy, Joint Replacement Additional Past Surgical History / Comment(s): right knee replacement Past Anesthesia/Blood Transfusion Reactions: No Reported Reaction Past Psychological History: No Psychological Hx Reported Past Alcohol Use History: None Reported Past Drug Use History: None Reported - Past Family History Mother Family Medical History: Cancer Additional Family Medical History / Comment(s): LUNG Son(s) Family Medical History: Cancer Medications and Allergies Home Medications Medication Instructions Recorded Confirmed Type Metoprolol Tartrate [Lopressor] 50 mg PO DAILY 10/18/14 11/16/22 History Omeprazole [PriLOSEC] 20 mg PO DAILY 10/18/14 11/16/22 History HYDROcodone/APAP 7.5-325MG [[place] 1 tab PO Q8H 06/15/18 11/16/22 History 7.5-325] Albuterol Nebulized [Ventolin 2.5 mg INHALATION RT-BID PRN 11/16/22 11/16/22 History Nebulized] Fluticasone Propion/Salmeterol 2 puff INHALATION RT-DAILY 11/16/22 11/16/22 History [Advair Hfa 230-21 Mcg Inhaler] Furosemide [Lasix] 40 mg PO DAILY 11/16/22 11/16/22 History Losartan Potassium 100 mg PO DAILY 11/16/22 11/16/22 History Allergies Allergy/AdvReac Type Severity Reaction Status Date / Time aspirin Allergy Rash/Hives Verified 11/16/22 19:15 chlorpheniramine polistirex Allergy Rash/Hives Verified 11/16/22 19:15 [From Tussionex] doxycycline Allergy Rash/Hives Verified 11/16/22 19:15 hydrocodone polistirex Allergy Rash/Hives Verified 11/16/22 19:15 [From Tussionex] levofloxacin Allergy Rash/Hives Verified 11/16/22 19:15 nickel Allergy Rash/Hives Verified 11/16/22 19:15 nitrofurantoin Allergy Nausea & Verified 11/16/22 19:15 Vomiting & Diarrhea nitrofurantoin Allergy Nausea & Verified 11/16/22 19:15 macrocrystalline Vomiting & [From Macrobid] Diarrhea Penicillins Allergy Rash/Hives Verified 11/16/22 19:15 tramadol HCl [From Ultram] Allergy Itching Verified 11/16/22 19:15 Physical Exam Vitals: Vital Signs Temp Pulse Resp BP Pulse Ox 11/17/22 05:15 117 H 11/17/22 05:06 108 H 11/17/22 03:30 120 H 18 101/58 94 L 11/17/22 03:00 110 H 18 95/81 95 11/17/22 02:00 123 H 121/97 95 11/17/22 00:00 149 H 11/16/22 23:00 123 H 18 11/16/22 22:00 131 H 18 11/16/22 21:00 112 H 18 135/74 97 11/16/22 20:00 133 H 18 130/75 95 11/16/22 18:09 118 H 24 123/79 95 11/16/22 16:57 97.9 F 130 H 24 120/87 97 Intake and Output 11/16/22 11/16/22 11/17/22 14:59 22:59 06:59 Other: Weight 106.594 kg GENERAL EXAM: Alert, 86-year-old morbidly obese female , comfortable in no apparent distress. HEAD: Normocephalic and atraumatic EYES: Normal reaction of pupils, equal size. NOSE: Clear with pink turbinates. THROAT: No erythema or exudates. NECK: No masses, no JVD. CHEST: No chest wall deformity. LUNGS: Equal air entry with expiratory wheezes throughout. no crackles, rhonchi or dullness. On 3 L nasal cannula. No conversational dyspnea or accessory muscle use.. CVS: S1 and S2 normal with no audible murmur, irregular rhythm. No extra heart sounds. Heart rate ranging from 100 to 120 bpm ABDOMEN: Obese abdomen, No hepatosplenomegaly, active bowel sounds, no guarding or rigidity. SPINE: No scoliosis or deformity SKIN: No rashes CENTRAL NERVOUS SYSTEM: No focal deficits, tone is normal in all 4 extremities. EXTREMITIES: There is moderate nonpitting bilateral lower extremity peripheral edema. No clubbing, or cyanosis. Peripheral pulses are intact. Results - Laboratory Findings CBC and BMP: 11/17/22 04:41 11/17/22 04:41 PT/INR, D-dimer PT 11.0 sec (9.0-12.0) 11/17/22 00:40 INR 1.1 (<1.2) 11/17/22 00:40 Abnormal lab findings: Abnormal Labs 11/17/22 11/17/22 00:40 04:41 WBC 12.9 H Neutrophils # 9.7 H APTT 60.3 H - Diagnostic Findings Chest x-ray: image reviewed CT scan - chest: report reviewed Assessment and Plan Assessment: Acute pulmonary embolism in the segmental branches of the right middle and lower lobes with subsegmental extension. There was apparently no CT evidence of right ventricular heart strain. Images are not available at this time. Currently anticoagulated on high intensity heparin infusion. Acute hypoxic respiratory failure secondary to above, currently on 3 L nasal cannula New-onset atrial fibrillation with rapid ventricular response Chronic obstructive pulmonary disease Recent urinary tract infection treated on outpatient basis with Bactrim, patient still experiencing symptoms of dysuria and frequency Essential hypertension History of uterine cancer status post hysterectomy Morbid obesity, with a BMI of 49 Ex-smoker, remote Plan: Patient's medications, labs, chest x-ray reviewed Chest CTA records were reviewed Continue high-intensity heparin infusion, and patient will be transitioned to a direct oral anticoagulant before discharge Echocardiogram is pending Venous Doppler of bilateral lower extremities pending Consult cardiology Start the patient on a combination of Symbicort inhaler and DuoNeb's Continue supplemental oxygen Repeat labs this morning Urinalysis reflex to culture We will continue to follow I have personally seen and examined the patient, performed the documentation and the assessment and plan as written. Number of minutes spent on the visit:20 There is a joint evaluation that was done along with the nurse practitioner. Floors is very well-known to me. She is a 86-year-old female patient, who was hospital approximately a week ago for decompensated heart failure. Subsequently she became short of breath and she started having chest pain or shortness of breath. She was found to be new onset atrial fibrillation and furthermore, CT angiogram that was done at the other hospital showed evidence of pulmonary embolism. The patient is currently on IV heparin. Her cardiac rhythm is still in atrial fibrillation. Still nature for the patient however remains hemodynamically stable. She is currently on oxygen at 3 L nasal cannula. Echo cardiogram is pending. Doppler of the lower extremities are negative. Evaluation was done > 30 min Time with Patient: Greater than 30
[2022-11-17] MEDS: HEPARIN SOD,PORK IN 0.45% NACL 25,000 UNIT in 0.45% NACL 1 250ML.BAG IV SCH (06:23)
[2022-11-17 07:21] LABS: Albumin 3.3 g/dL (3.5-5.0); Total Protein 6.5 g/dL (6.3-8.2)
[2022-11-17 07:30] LABS: Calcium 7.9 mg/dL (8.4-10.2); Potassium 3.9 mmol/L (3.5-5.1)
[2022-11-17] MEDS: IPRATROPIUM-ALBUTEROL 3 ML NEB INHALATION SCH ×4 (08:16→21:20)
[2022-11-17] MEDS: SYMBICORT 160-4.5 MCG INHALER INHALATION SCH ×2 (08:16→21:19)
[2022-11-17] MEDS: PANTOPRAZOLE 40 MG TABLET PO SCH (08:21)
[2022-11-17] MEDS: SODIUM CHLORIDE 0.9% 1,000 ML IV SCH (08:22)
--- NOTE | 2022-11-17 08:30 | US ---
EXAMINATION TYPE: US venous doppler duplex LE BI DATE OF EXAM: 11/17/2022 7:18 AM COMPARISON: NONE CLINICAL INDICATION: Female, 86 years old with history of R/O DVT; acute PE, bilateral leg pain that is chronic SIDE PERFORMED: Bilateral TECHNIQUE: The lower extremity deep venous system is examined utilizing real time linear array sonog hugo with graded compression, doppler sonography and color-flow sonography. VESSELS IMAGED: Common Femoral Vein Deep Femoral Vein Greater Saphenous Vein * Femoral Vein Popliteal Vein Small Saphenous Vein * Proximal Calf Veins (* superficial vessels) elderly female could not tolerate most compression imaging, used color imaging and doppler to confi rm flow, was able to compress femoral veins bilaterally Right Leg: Negative for DVT Grayscale, color doppler, spectral doppler imaging performed of the deep veins of the lower extremiti es. There is normal flow, vascular waveforms. Left Leg: Negative for DVT Grayscale, color doppler, spectral doppler imaging performed of the deep veins of the lower extremiti es. There is normal flow , vascular waveforms. IMPRESSION: No evidence for deep vein thrombosis of either lower extremity.
--- NOTE | 2022-11-17 08:37 | XR ---
EXAMINATION TYPE: XR chest 1V portable DATE OF EXAM: 11/17/2022 COMPARISON: 11/15/2017 HISTORY: Shortness of breath TECHNIQUE: Single frontal view of the chest is obtained. FINDINGS: There is no focal air space opacity, pleural effusion, or pneumothorax seen. The cardiac silhouette size is within normal limits. The osseous structures demonstrate hypertrophic and degene rative change of spine.. Retrocardiac calcification likely related to the mitral annulus. Severe arth ropathy of the shoulders. Atherosclerotic change aorta. IMPRESSION: No acute process.
[2022-11-17 08:53] LABS: Appearance,Urine Cloudy (Clear); Bilirubin,Urine Negative (Negative); Blood,Urine Negative (Negative); Color,Urine Yellow; Glucose,Urine (UA) Negative (Negative); Ketones,Urine Negative (Negative); Leukocyte Esterase,Urine Moderate (Negative); Mucus,Urine Rare /hpf; Nitrite,Urine Negative (Negative); Protein,Urine Trace (Negative); RBC,Urine 3 /hpf (0-5); Squamous Epithelial Cell,Urine 1 /hpf (0-4); WBC,Urine 8 /hpf (0-5)
[2022-11-17] MEDS ORDERED: LOSARTAN 50 MG TAB PO SCH (09:00)
[2022-11-17] MEDS ORDERED: METOPROLOL TARTRATE 50 MG TAB PO SCH (09:00)
[2022-11-17] MEDS ORDERED: DILTIAZEM DRIP BOLUS FROM BAG 1 MG SOLN IV ONE (09:30)
[2022-11-17] MEDS: FUROSEMIDE 10 MG/ML 4 ML VIAL IV SCH ×2 (09:48→21:36)
[2022-11-17] MEDS: DILTIAZEM 125 MG in SODIUM CHLORIDE 0.9% 100 ML IV SCH (12:18)
[2022-11-17] MEDS: APIXABAN 5 MG TAB PO SCH ×2 (12:25→21:35)
--- NOTE | 2022-11-17 12:29 | P.CRDCN ---
History of Present Illness History of present illness: HISTORY OF PRESENT ILLNESS: This is a 86-year-old female with a past medical history significant for COPD, congestive heart failure, hypertension, and GERD. Patient follows in the office with Dr. Medellin but has not been seen in the office since April 2021. We have been asked to see the patient in consultation for new onset atrial fibrillation. Patient examined at the bedside in the emergency room. Patient presented [facility] with a chief complaint of chest pain and shortness of breath. Patient was transferred to [facility] for further evaluation. She states that she was having chest pain in the middle of her chest and into her shoulder and behind her left ear. She also reports feeling short of breath for the past few days. She states her shortness of breath is worse with deep inspiration. She reports lower extremity edema which is not new. Patient underwent a CTA revealing acute pulmonary embolism in the segmental branches of the right middle and lower lobe with subsegmental extension. No evidence of right heart strain. The patient was started on IV heparin. The patient was also found to be in A. fib with RVR. The patient denies a history of atrial fibrillation. She does report feeling palpitations and dizzy at times. At the time of examination the patient's heart rates are around 110. She just received her morning medications which include metoprolol per the nurse at the bedside. She does report that she was recently admitted at [facility] for CHF exacerbation. * Chest xray negative for acute process * . Lower extremity Doppler: Negative for DVT bilaterally * Laboratory data: WBC 12.9. Hemoglobin 13.0. Platelet count 276. Sodium 131. Potassium 3.9. BUN 22. Creatinine 0.85. Troponin negative 1. ProBNP 5750. * Current home cardiac medications include losartan 100 mg daily, metoprolol titrate 50 mg daily, Lasix 40 mg daily REVIEW OF SYSTEMS: At the time of my exam: CONSTITUTIONAL: Denies fever or chills. HEENT: Denies blurred vision, vision changes, or eye pain. Denies hemoptysis CARDIOVASCULAR: Denies chest pain. Denies orthopnea. Denies PND. Denies palpitations RESPIRATORY: Denies shortness of breath. GASTROINTESTINAL: Denies abdominal pain. Denies nausea or vomiting. HEMATOLOGIC: Denies bleeding disorders. GENITOURINARY: Denies any blood in urine. SKIN: Denies pruitis. Denies rash. PHYSICAL EXAM: VITAL SIGNS: Reviewed. GENERAL: Well-developed in no acute distress. HEENT: Head is normocephalic. Pupils are equal, round. Sclerae anicteric. Mucous membranes of the mouth are moist. Neck supple. No JVD or thyromegaly LUNGS: Respirations even and unlabored. Lungs with diminished air exchange and wheezing throughout. HEART: Tachycardic. Irregular rate and rhythm. S1 and S2 heard. ABDOMEN: Soft. Nondistended. Nontender. EXTREMITIES: Normal range of motion. No clubbing or cyanosis. Peripheral pulses intact. 1-2+ bilateral lower extremity edema NEUROLOGIC: Awake and alert. Oriented x 3. ASSESSMENT: Shortness of breath Acute right-sided pulmonary embolism Acute on chronic heart failure, type unknown, echo pending New-onset atrial fibrillation with RVR History of COPD Hypertension GERD Morbid obesity: BMI 49.1 PLAN: Obtain 2-D echo to assess cardiac structure and function Resume home cardiac medications If patient's heart rates sustain 110 or higher, begin IV Cardizem bolus and infusion Discontinue IV heparin. Begin Eliquis 10mg BID Begin IV Lasix 40mg IVP BID Daily weights, accurate I&O, and monitoring of kidney function Further recommendations pending patient's course Nurse practitioner note has been reviewed by physician. Signing provider agrees with the documented findings, assessment, and plan of care. Past Medical History Past Medical History: Cancer, COPD, GERD/Reflux, Hypertension Additional Past Medical History / Comment(s): HX UTERINE CA, HX COLITIS, POLYPS History of Any Multi-Drug Resistant Organisms: None Reported Past Surgical History: Cholecystectomy, Hysterectomy, Joint Replacement Additional Past Surgical History / Comment(s): right knee replacement Past Anesthesia/Blood Transfusion Reactions: No Reported Reaction Past Psychological History: No Psychological Hx Reported Past Alcohol Use History: None Reported Past Drug Use History: None Reported - Past Family History Mother Family Medical History: Cancer Additional Family Medical History / Comment(s): LUNG Son(s) Family Medical History: Cancer Medications and Allergies Home Medications Medication Instructions Recorded Confirmed Type Metoprolol Tartrate [Lopressor] 50 mg PO DAILY 10/18/14 11/16/22 History Omeprazole [PriLOSEC] 20 mg PO DAILY 10/18/14 11/16/22 History HYDROcodone/APAP 7.5-325MG [[place] 1 tab PO Q8H 06/15/18 11/16/22 History 7.5-325] Albuterol Nebulized [Ventolin 2.5 mg INHALATION RT-BID PRN 11/16/22 11/16/22 History Nebulized] Fluticasone Propion/Salmeterol 2 puff INHALATION RT-DAILY 11/16/22 11/16/22 History [Advair Hfa 230-21 Mcg Inhaler] Furosemide [Lasix] 40 mg PO DAILY 11/16/22 11/16/22 History Losartan Potassium 100 mg PO DAILY 11/16/22 11/16/22 History Allergies Allergy/AdvReac Type Severity Reaction Status Date / Time aspirin Allergy Rash/Hives Verified 11/16/22 19:15 chlorpheniramine polistirex Allergy Rash/Hives Verified 11/16/22 19:15 [From Tussionex] doxycycline Allergy Rash/Hives Verified 11/16/22 19:15 hydrocodone polistirex Allergy Rash/Hives Verified 11/16/22 19:15 [From Tussionex] levofloxacin Allergy Rash/Hives Verified 11/16/22 19:15 nickel Allergy Rash/Hives Verified 11/16/22 19:15 nitrofurantoin Allergy Nausea & Verified 11/16/22 19:15 Vomiting & Diarrhea nitrofurantoin Allergy Nausea & Verified 11/16/22 19:15 macrocrystalline Vomiting & [From Macrobid] Diarrhea Penicillins Allergy Rash/Hives Verified 11/16/22 19:15 tramadol HCl [From Ultram] Allergy Itching Verified 11/16/22 19:15 Physical Exam Vitals: Vital Signs Temp Pulse Resp BP Pulse Ox 11/17/22 11:24 95 20 104/69 95 11/17/22 09:46 107 H 20 102/63 94 L 11/17/22 08:28 121 H 11/17/22 08:16 122 H 11/17/22 08:00 134 H 22 111/82 94 L 11/17/22 06:00 120 H 18 136/74 94 L 11/17/22 05:15 117 H 11/17/22 05:06 108 H 11/17/22 05:00 117 H 18 102/80 95 11/17/22 04:00 121 H 18 101/58 95 11/17/22 03:30 120 H 18 101/58 94 L 11/17/22 03:00 110 H 18 95/81 95 11/17/22 02:00 123 H 121/97 95 11/17/22 00:00 149 H 11/16/22 23:00 123 H 18 11/16/22 22:00 131 H 18 11/16/22 21:00 112 H 18 135/74 97 11/16/22 20:00 133 H 18 130/75 95 11/16/22 18:09 118 H 24 123/79 95 11/16/22 16:57 97.9 F 130 H 24 120/87 97 Intake and Output 11/16/22 11/17/22 11/17/22 22:59 06:59 14:59 Intake Total 220.651 Balance 220.651 Intake: Intake, IV Titration 220.651 Amount Heparin Sod,Pork in 0.45% 220.651 NaCl 25,000 unit In 0.45 % NaCl 1 250ml.bag @ 18 UNITS/KG/HR 19.187 mls/hr IV .Q13H2M [facility] Rx#: [id number] Other: Weight 106.594 kg Results 11/17/22 04:41 11/17/22 04:41 Cardiac Enzymes 11/17/22 11/17/22 Range/Units 04:41 04:41 AST 23 (14-36) U/L Troponin I 0.020 (0.000-0.034) ng/mL Coagulation 11/17/22 11/17/22 Range/Units 00:40 05:44 PT 11.0 (9.0-12.0) sec APTT 60.3 H 80.2 H (22.0-30.0) sec CBC 11/17/22 Range/Units 04:41 WBC 12.9 H (3.8-10.6) k/uL RBC 4.50 (3.80-5.40) m/uL Hgb 13.0 (11.4-16.0) gm/dL Hct 41.3 (34.0-46.0) % Plt Count 276 (150-450) k/uL Comprehensive Metabolic Panel 11/17/22 Range/Units 04:41 Sodium 131 L (137-145) mmol/L Potassium 3.9 (3.5-5.1) mmol/L Chloride 93 L (98-107) mmol/L Carbon Dioxide 27 (22-30) mmol/L BUN 22 H (7-17) mg/dL Creatinine 0.85 (0.52-1.04) mg/dL Glucose 173 H (74-99) mg/dL Calcium 7.9 L (8.4-10.2) mg/dL AST 23 (14-36) U/L ALT 21 (4-34) U/L Alkaline Phosphatase 105 (38-126) U/L Total Protein 6.5 (6.3-8.2) g/dL Albumin 3.3 L (3.5-5.0) g/dL Current Medications Generic Name Dose Route Start Last Admin Trade Name Freq PRN Reason Stop Dose Admin Acetaminophen 650 mg 11/16/22 18:03 Acetaminophen Tab 325 Mg Tab PO Q6HR PRN Mild Pain or Fever > 100.5 Hydrocodone Bitart/Acetaminophen 1 each 11/16/22 18:03 Hydrocodone/Apap 5-325mg 1 Each Tab PO Q4HR PRN Moderate Pain (Scale 4 to 6) Hydrocodone Bitart/Acetaminophen 1 each 11/16/22 21:00 11/17/22 05:50 Hydrocodone/Apap 7.5-325mg 1 Each Tab PO 1 each Q8H [facility] Administration Albuterol/Ipratropium 3 ml 11/17/22 08:00 11/17/22 12:08 Ipratropium-Albuterol 3 Ml Neb INHALATION 3 ml RT-QID [facility] Administration Albuterol/Ipratropium 3 ml 11/17/22 04:27 11/17/22 05:00 Ipratropium-Albuterol 3 Ml Neb INHALATION 3 ml RT-Q2H PRN Administration Shortness Of Breath Or Wheezing Apixaban 10 mg 11/17/22 10:00 Apixaban 5 Mg Tab PO 12/17/22 08:59 BID [facility] Taper Budesonide/Formoterol Fumarate 2 puff 11/17/22 08:00 11/17/22 08:16 Symbicort 160-4.5 Mcg Inhaler INHALATION 2 puff RT-BID [facility] Administration Furosemide 40 mg 11/17/22 09:15 11/17/22 09:48 Furosemide 10 Mg/Ml 4 Ml Vial IV 40 mg Q12HR [facility] Administration Sodium Chloride 1,000 mls @ 75 mls/hr 11/16/22 18:15 11/17/22 08:22 Saline 0.9% IV 75 mls/hr .[id number] [facility] Administration Diltiazem HCl 125 mg/ Sodium 125 mls @ 5 mls/hr 11/17/22 09:30 Chloride IV .Q24H [facility] 5 MG/HR Losartan Potassium 100 mg 11/17/22 09:00 11/17/22 08:22 Losartan 50 Mg Tab PO 100 mg DAILY [facility] Administration Melatonin 5 mg 11/17/22 01:14 11/17/22 01:33 Melatonin 5 Mg Tablet PO 5 mg HS [facility] Administration Metoprolol Tartrate 25 mg 11/17/22 01:30 11/17/22 08:22 Metoprolol Tartrate 25 Mg Tab PO 25 mg BID [facility] Administration Naloxone HCl 0.2 mg 11/16/22 18:03 Naloxone 0.4 Mg/Ml 1 Ml Vial IV Q2M PRN Opioid Reversal Pantoprazole Sodium 40 mg 11/17/22 09:00 11/17/22 08:21 Pantoprazole 40 Mg Tablet PO 40 mg DAILY [facility] Administration Intake and Output 11/16/22 11/17/22 11/17/22 22:59 06:59 14:59 Intake Total 220.651 Balance 220.651 Intake: Intake, IV Titration 220.651 Amount Heparin Sod,Pork in 0.45% 220.651 NaCl 25,000 unit In 0.45 % NaCl 1 250ml.bag @ 18 UNITS/KG/HR 19.187 mls/hr IV .Q13H2M [facility] Rx#: [id number] Other: Weight 106.594 kg 11/17/22 04:41 11/17/22 04:41
--- NOTE | 2022-11-17 15:13 | P.HPIM ---
History of Present Illness Patient is transferred from outside hospital for a pulmonary embolism patient presented with chest pain found to have subsegmental PE bilaterally. Patient was also having shortness of breath. CT was read as evidence of right ventri cular strain, echo be pending troponin is negative. Patient is mildly hyponatremic is on Bactrim for UTI patient continues to complain of burning sensation patient is presently in atrial fibrillation with rapid ventricular rate. Cardiology and pulmonology evaluated the patient REVIEW OF SYSTEMS: CONSTITUTIONAL: No fever, no malaise, no fatigue. HEENT: No recent visual problems or hearing problems. Denied any sore throat. CARDIOVASCULAR: No orthopnea, PND, no palpitations, no syncope. PULMONARY: No shortness of breath, no cough, no hemoptysis. GASTROINTESTINAL: No diarrhea, no nausea, no vomiting, no abdominal pain. NEUROLOGICAL: No headaches, no weakness, no numbness. HEMATOLOGICAL: Denies any bleeding or petechiae. GENITOURINARY: Denies any burning micturition, frequency, or urgency. MUSCULOSKELETAL/RHEUMATOLOGICAL: Denies any joint pain, swelling, or any muscle pain. ENDOCRINE: Denies any polyuria or polydipsia. The rest of the 14-point review of systems is negative. PHYSICAL EXAMINATION: GENERAL: The patient is alert and oriented x3, not in any acute distress. Well developed, well nourished. HEENT: Pupils are round and equally reacting to light. EOMI. No scleral icterus. No conjunctival pallor. Normocephalic, atraumatic. No pharyngeal erythema. No thyromegaly. CARDIOVASCULAR: S1 and S2 present. No murmurs, rubs, or gallops. PULMONARY: Chest is clear to auscultation, no wheezing or crackles. ABDOMEN: Soft, nontender, nondistended, normoactive bowel sounds. No palpable organomegaly. MUSCULOSKELETAL: No joint swelling or deformity. EXTREMITIES: No cyanosis, clubbing, or pedal edema. NEUROLOGICAL: Gross neurological examination did not reveal any focal deficits. SKIN: No rashes. Assessment and plan -Subsegmental pulmonary embolism: Patient is already transitioned to oral anticoagulation. An echocardiogram in for any evidence of right ventricle strain. -Acute hypoxic respiratory failure secondary to the patient is presently in 3 years' -New-onset atrial fibrillation with rapid ventricular rate secondary to pulmonary embolism continue present management -Recent UTI which was treated as an outpatient with Bactrim continues to have burning sensation although urinalysis is negative for urinary tract infection patient will be started on Mycostatin powder for possible vaginal yeast infection and peritoneum if symptoms doesn't improve patient was started on Rocephin at that time -Hypertension -History of uterine cancer status post hysterectomy -Moderate obesity DVT prophylaxis: On anticoagulation as mentioned above Past Medical History Past Medical History: Cancer, COPD, GERD/Reflux, Hypertension Additional Past Medical History / Comment(s): HX UTERINE CA, HX COLITIS, POLYPS History of Any Multi-Drug Resistant Organisms: None Reported Past Surgical History: Cholecystectomy, Hysterectomy, Joint Replacement Additional Past Surgical History / Comment(s): right knee replacement Past Anesthesia/Blood Transfusion Reactions: No Reported Reaction Past Psychological History: No Psychological Hx Reported Past Alcohol Use History: None Reported Past Drug Use History: None Reported - Past Family History Mother Family Medical History: Cancer Additional Family Medical History / Comment(s): LUNG Son(s) Family Medical History: Cancer Medications and Allergies Home Medications Medication Instructions Recorded Confirmed Type Metoprolol Tartrate [Lopressor] 50 mg PO DAILY 10/18/14 11/16/22 History Omeprazole [PriLOSEC] 20 mg PO DAILY 10/18/14 11/16/22 History HYDROcodone/APAP 7.5-325MG [[place] 1 tab PO Q8H 06/15/18 11/16/22 History 7.5-325] Albuterol Nebulized [Ventolin 2.5 mg INHALATION RT-BID PRN 11/16/22 11/16/22 History Nebulized] Fluticasone Propion/Salmeterol 2 puff INHALATION RT-DAILY 11/16/22 11/16/22 History [Advair Hfa 230-21 Mcg Inhaler] Furosemide [Lasix] 40 mg PO DAILY 11/16/22 11/16/22 History Losartan Potassium 100 mg PO DAILY 11/16/22 11/16/22 History Allergies Allergy/AdvReac Type Severity Reaction Status Date / Time aspirin Allergy Rash/Hives Verified 11/16/22 19:15 chlorpheniramine polistirex Allergy Rash/Hives Verified 11/16/22 19:15 [From Tussionex] doxycycline Allergy Rash/Hives Verified 11/16/22 19:15 hydrocodone polistirex Allergy Rash/Hives Verified 11/16/22 19:15 [From Tussionex] levofloxacin Allergy Rash/Hives Verified 11/16/22 19:15 nickel Allergy Rash/Hives Verified 11/16/22 19:15 nitrofurantoin Allergy Nausea & Verified 11/16/22 19:15 Vomiting & Diarrhea nitrofurantoin Allergy Nausea & Verified 11/16/22 19:15 macrocrystalline Vomiting & [From Macrobid] Diarrhea Penicillins Allergy Rash/Hives Verified 11/16/22 19:15 tramadol HCl [From Ultram] Allergy Itching Verified 11/16/22 19:15 Physical Exam Vitals: Vital Signs Temp Pulse Resp BP Pulse Ox 11/17/22 14:59 105 H 11/17/22 14:49 105 H 11/17/22 14:00 98 24 99/62 92 L 11/17/22 13:00 22 95/59 92 L 11/17/22 12:23 113 H 20 95/59 94 L 11/17/22 12:16 116 H 11/17/22 12:08 116 H 11/17/22 11:24 95 20 104/69 95 11/17/22 09:46 107 H 20 102/63 94 L 11/17/22 08:28 121 H 11/17/22 08:16 122 H 11/17/22 08:00 134 H 22 111/82 94 L 11/17/22 06:00 120 H 18 136/74 94 L 11/17/22 05:15 117 H 11/17/22 05:06 108 H 11/17/22 05:00 117 H 18 102/80 95 11/17/22 04:00 121 H 18 101/58 95 11/17/22 03:30 120 H 18 101/58 94 L 11/17/22 03:00 110 H 18 95/81 95 11/17/22 02:00 123 H 121/97 95 11/17/22 00:00 149 H 11/16/22 23:00 123 H 18 11/16/22 22:00 131 H 18 11/16/22 21:00 112 H 18 135/74 97 11/16/22 20:00 133 H 18 130/75 95 11/16/22 18:09 118 H 24 123/79 95 11/16/22 16:57 97.9 F 130 H 24 120/87 97 Intake and Output 11/17/22 11/17/22 11/17/22 06:59 14:59 22:59 Intake Total 220.651 Balance 220.651 Intake: Intake, IV Titration 220.651 Amount Heparin Sod,Pork in 0.45% 220.651 NaCl 25,000 unit In 0.45 % NaCl 1 250ml.bag @ 18 UNITS/KG/HR 19.187 mls/hr IV .Q13H2M [facility] Rx#: [id number] Results CBC & Chem 7: 11/17/22 04:41 11/17/22 04:41 Labs: Abnormal Lab Results - Last 24 Hours (Table) 11/17/22 11/17/22 11/17/22 Range/Units 00:40 04:41 04:41 WBC 12.9 H (3.8-10.6) k/uL Neutrophils # 9.7 H (1.3-7.7) k/uL APTT 60.3 H (22.0-30.0) sec Sodium 131 L (137-145) mmol/L Chloride 93 L (98-107) mmol/L BUN 22 H (7-17) mg/dL Glucose 173 H (74-99) mg/dL Calcium 7.9 L (8.4-10.2) mg/dL Albumin 3.3 L (3.5-5.0) g/dL Urine Appearance (Clear) Ur Specific [place] (1.001-1.035) Urine Protein (Negative) Ur Leukocyte Esterase (Negative) Urine WBC (0-5) /hpf Urine Mucus (None) /hpf 11/17/22 11/17/22 Range/Units 05:44 08:30 WBC (3.8-10.6) k/uL Neutrophils # (1.3-7.7) k/uL APTT 80.2 H (22.0-30.0) sec Sodium (137-145) mmol/L Chloride (98-107) mmol/L BUN (7-17) mg/dL Glucose (74-99) mg/dL Calcium (8.4-10.2) mg/dL Albumin (3.5-5.0) g/dL Urine Appearance Cloudy H (Clear) Ur Specific [place] 1.050 H (1.001-1.035) Urine Protein Trace H (Negative) Ur Leukocyte Esterase Moderate H (Negative) Urine WBC 8 H (0-5) /hpf Urine Mucus Rare H (None) /hpf
[2022-11-17] MEDS: NYSTATIN 100,000UNIT/GM CREAM 30 GM TUBE TOPICAL SCH ×2 (17:17→21:36)
[2022-11-17] MEDS: PHENAZOPYRIDINE 100 MG TAB PO SCH ×2 (17:17→21:35)
[2022-11-18 02:02] LABS: INR 1.1 (<1.2); Partial Thromboplastin Time 25.1 sec (22.0-30.0); Prothrombin Time 11.5 sec (9.0-12.0)
[2022-11-18] MEDS: HYDROcodone/APAP 7.5-325MG 1 EACH TAB PO SCH ×3 (06:05→20:12)
[2022-11-18] MEDS: METOPROLOL TARTRATE 25 MG TAB PO SCH (08:46)
[2022-11-18] MEDS: FUROSEMIDE 10 MG/ML 4 ML VIAL IV SCH (08:46)
[2022-11-18] MEDS: APIXABAN 5 MG TAB PO SCH ×2 (08:46→20:12)
[2022-11-18] MEDS: PHENAZOPYRIDINE 100 MG TAB PO SCH ×4 (08:47→20:13)
[2022-11-18] MEDS: PANTOPRAZOLE 40 MG TABLET PO SCH (08:47)
[2022-11-18] MEDS: IPRATROPIUM-ALBUTEROL 3 ML NEB INHALATION SCH ×4 (09:19→21:16)
[2022-11-18 09:32] LABS: Calcium 7.5 mg/dL (8.4-10.2); Potassium 3.6 mmol/L (3.5-5.1)
[2022-11-18] MEDS ORDERED: METOPROLOL TARTRATE 25 MG TAB PO STA (09:39)
--- NOTE | 2022-11-18 10:44 | CA ---
Transthoracic Echo Report Name: Elvie Mandujano Age: 86 Gender: F : 1935 Exam Date: 11/18/2022 07:59 Exam Location: [place] Echo Ht (in): 58 Wt (lb): 235 Ordering Physician: Musa Duran MD Attending/Referring Phys: [employer] Michelle Ireland RDCS Procedure CPT: Indications: New atrial fibrillation. Acute PE. Cardiac Hx: Technical Quality: Technically difficult study Contrast 1: Total Dose (mL): Contrast 2: Total Dose (mL): MEASUREMENTS (Male / Female) Normal Values 2D ECHO LV Diastolic Diameter PLAX 4.2 cm 4.2 - 5.9 / 3.9 - 5.3 cm LV Systolic Diameter PLAX 2.3 cm IVS Diastolic Thickness 1.2 cm 0.6 - 1.0 / 0.6 - 0.9 cm LVPW Diastolic Thickness 1.2 cm 0.6 - 1.0 / 0.6 - 0.9 cm LV Relative Wall Thickness 0.6 RV Internal Dim ED PLAX 2.9 cm LVOT Diameter 2.0 cm LA Systolic Diameter LX 3.8 cm 3.0 - 4.0 / 2.7 - 3.8 cm LA Volume 69.2 cm??? 18 - 58 / 22 - 52 cm??? M-MODE Aortic Root Diameter MM 3.2 cm AV Cusp Separation MM 1.4 cm DOPPLER AV Peak Velocity 230.7 cm/s AV Peak Gradient 21.3 mmHg AV Mean Velocity 153.8 cm/s AV Mean Gradient 11.1 mmHg AV Velocity Time Integral 38.5 cm LVOT Peak Velocity 199.8 cm/s LVOT Peak Gradient 16.0 mmHg AV Area Cont Eq pk 2.7 cm??? MV Peak Velocity 160.4 cm/s MV Peak Gradient 10.3 mmHg MV Mean Velocity 87.3 cm/s MV Mean Gradient 4.0 mmHg MV Velocity Time Integral 33.0 cm MV Area PHT 4.1 cm??? MV Deceleration Time 146.8 ms TR Peak Velocity 346.9 cm/s TR Peak Gradient 48.1 mmHg Right Ventricular Systolic Press 61.6 mmHg FINDINGS Left Ventricle Left ventricular ejection fraction is estimated at more than 70 %. Left ventricular cavity size normal. Mildly increased septal wall thickness. Mildly increased posterior wall thickness. Flattening of atrial septum in systole and diastole Right Ventricle Normal right ventricular size. moderate tosevere pulmonary hypertension. Right ventricular systolic pressure estimated at 62 mm hg. Right Atrium Normal right atrial size. Left Atrium Moderately increased left atrial volume. Mildly increased left atrial area. Mitral Valve Moderate thickening/calcification of the anterior mitral valve leaflet. Moderate thickening/calcification of the posterior mitral valve leaflet. Moderate mitral annular calcification. Aortic Valve Moderate aortic valve sclerosis. Mild aortic stenosis with a peak gradient of 21 mmHg and a mean gradient of 11 mmHg. Tricuspid Valve Structurally normal tricuspid valve. Mild tricuspid regurgitation. Pulmonic Valve Structurally normal pulmonic valve. Mild pulmonic regurgitation. Pericardium Normal pericardium. No pericardial effusion. Aorta Normal size aortic root and proximal ascending aorta. CONCLUSIONS Left ventricular hypertrophy with normal LV systolic function Left atrial enlargement Mild aortic stenosis and mitral annular calcification Moderate to severe pulmonary hypertension Previewed by: Dr. Gabino Medellin MD (Electronically Signed) Final Date: 18 Nov 2022 10:43
--- NOTE | 2022-11-18 11:20 | P.PN ---
Subjective Progress Note Date: 11/18/22 HISTORY OF PRESENT ILLNESS: This is a 86-year-old female with a past medical history significant for COPD, congestive heart failure, hypertension, and GERD. Patient follows in the office with Dr. Medellin but has not been seen in the office since April 2021. We have been asked to see the patient in consultation for new onset atrial fibrillation. Patient examined at the bedside in the emergency room. Patient presented [facility] with a chief complaint of chest pain and shortness of breath. Patient was transferred to [facility] for further evaluation. She stat es that she was having chest pain in the middle of her chest and into her shoulder and behind her left ear. She also reports feeling short of breath for the past few days. She states her shortness of breath is worse with deep inspiration. She reports lower extremity edema which is not new. Patient underwent a CTA revealing acute pulmonary embolism in the segmental branches of the right middle and lower lobe with subsegmental extension. No evidence of right heart strain. The patient was started on IV heparin. The patient was also found to be in A. fib with RVR. The patient denies a history of atrial fibrillation. She does report feeling palpitations and dizzy at times. At the time of examination the patient's heart rates are around 110. She just received her morning medications which include metoprolol per the nurse at the bedside. She does report that she was recently admitted at [facility] for CHF exacerbation. * Chest xray negative for acute process * . Lower extremity Doppler: Negative for DVT bilaterally * Laboratory data: WBC 12.9. Hemoglobin 13.0. Platelet count 276. Sodium 131. Potassium 3.9. BUN 22. Creatinine 0.85. Troponin negative 1. ProBNP 575 0. * Current home cardiac medications include losartan 100 mg daily, metoprolol titrate 50 mg daily, Lasix 40 mg daily 11/18/2022 Patient examined this morning at the bedside. Patient denies chest pain or pressure. She reports continued shortness of breath. She was started on IV steroids per pulmonary today. Telemetry reveals atrial fibrillation with heart rate between [id number]. Patient remains on IV Cardizem at 5 mg an hour. Patient's losartan was discontinued yesterday secondary to borderline hypotension. Most recent blood pressure 114/60. Echocardiogram completed revealing ejection fraction 70%, moderate to severe pulmonary hypertension, and mild aortic stenosis PHYSICAL EXAM: VITAL SIGNS: Reviewed. GENERAL: Well-developed in no acute distress. HEENT: Head is normocephalic. Pupils are equal, round. Sclerae anicteric. Mucous membranes of the mouth are moist. Neck supple. No JVD or thyromegaly LUNGS: Respirations even and unlabored. Lungs with diminished air exchange and wheezing throughout. HEART: Tachycardic. Irregular rate and rhythm. S1 and S2 heard. ABDOMEN: Soft. Nondistended. Nontender. EXTREMITIES: Normal range of motion. No clubbing or cyanosis. Peripheral pulses intact. 1-2+ bilateral lower extremity edema NEUROLOGIC: Awake and alert. Oriented x 3. ASSESSMENT: Shortness of breath Acute right-sided pulmonary embolism Acute on chronic heart failure with preserved ejection fraction New-onset atrial fibrillation with RVR Acute COPD exacerbation Hypertension GERD Morbid obesity: BMI 49.1 PLAN: Continue Eliquis 10mg BID Continue Lasix 40mg IVP BID. Daily weights, accurate I&O, and monitoring of kidney function Increase metoprolol to 50 mg twice a day for optimal heart rate control Discontinue IV Cardizem Continue telemetry monitoring Further recommendations pending patient's course Nurse practitioner note has been reviewed by physician. Signing provider agrees with the documented findings, assessment, and plan of care. Objective - Vital Signs Vital signs: Vital Signs Temp 98.2 F 11/17/22 21:31 Pulse 118 H 11/18/22 09:25 Resp 22 11/18/22 03:56 BP 114/68 11/18/22 03:56 Pulse Ox 94 L 11/18/22 03:56 FiO2 Intake & Output 11/17/22 11/18/22 11/18/22 18:59 06:59 18:59 Intake Total 110 118 Output Total 350 Balance 110 -350 118 Weight 106.594 kg Intake: Oral 110 118 Output: Urine 350 Other: Voiding Method External Catheter External Catheter # Voids 2 - Labs CBC & Chem 7: 11/17/22 04:41 11/18/22 08:23 Labs: Abnormal Lab Results - Last 24 Hours (Table) 11/18/22 Range/Units 08:23 Sodium 130 L (137-145) mmol/L Chloride 94 L (98-107) mmol/L BUN 27 H (7-17) mg/dL Creatinine 1.15 H (0.52-1.04) mg/dL Glucose 202 H (74-99) mg/dL Calcium 7.5 L (8.4-10.2) mg/dL
--- NOTE | 2022-11-18 11:52 | P.PN ---
Subjective Progress Note Date: 11/18/22 I am seeing this patient in new consultation today 11/17/2022 in the emergency room for right-sided pulmonary embolism. Patient is an 86-year-old white female with past medical history significant for COPD, CHF, hypertension, uterine cancer status post hysterectomy, morbid obesity, and is a remote ex-smoker. She has been seen by Dr. Lynch in the past for COPD. Patient's currently on a combination of Advair and albuterol inhalers. Patient has reportedly had a recent hospital stay at [facility] between October 26 and November 01 for CHF exacerbation. She has been quite sedentary. Early yesterday morning, the patient started to experience shortness of breath and right-sided chest pain, that awoke her from her sleep. She went to [facility], and underwent a chest CTA. Clinical impression reads that there is an acute pulmonary embolism in the segmental branches of the right middle and lower lobes with subsegmental extension. There was apparently no CT evidence of right ventricular heart strain. Images are not available at this time. Patient was also found to be in new onset atrial fibrillation. Patient was started on a high intensity heparin infusion, and transferred to [facility]. Patient is currently sitting up in bed, on 3 L nasal cannula, in no acute distress. Chest x-ray shows no acute cardiopulmonary process. Patient denies any previous history of DVTs or PEs, recent travel, trauma. She does report that her daughter has history of DVT. Labs this morning are pending. Troponin levels were reportedly elevated at outside facility. Lungs are bronchospastic on auscultation. Patient is on a combination of albuterol and Symbicort inhalers. Heart rhythm is currently atrial fibrillation with rapid ventricular rate ranging from 100 to 120 bpm. Otherwise, the patient is hemodynamicly stable. On today's evaluation of 11/18/2022, the patient is grieving loss of her . The patient otherwise is stable. She remains atrial fibrillation. She was started on a Cardizem drip which is running at 5 mg an hour. She was taken off the IV heparin and she was started on anticoagulation with Eliquis. Echocardiogram was done and the results are still pending for now. On today's evaluation, she was noted to be increasingly bronchospastic and wheezy. She was started on Lasix 40 mg IV every 12 hours. She'll be also started on low-dose IV Solu-Medrol 40 mg every 6 hours. She is on DuoNeb Ymagisrafts [id number]. She is on metoprolol 50 mg twice a day and a Cardizem drip will be gradually weaned off and discontinued. No chest pain. No significant shortness of breath at this point in time. Objective - Vital Signs Vital signs: Vital Signs Temp 98.2 F 11/17/22 21:31 Pulse 118 H 11/18/22 09:25 Resp 22 11/18/22 03:56 BP 114/68 11/18/22 03:56 Pulse Ox 94 L 11/18/22 03:56 FiO2 Intake & Output 11/17/22 11/18/22 11/18/22 18:59 06:59 18:59 Intake Total 110 118 Output Total 350 Balance 110 -350 118 Weight 106.594 kg Intake: Oral 110 118 Output: Urine 350 Other: Voiding Method External Catheter External Catheter # Voids 2 - Exam GENERAL EXAM: Alert, 86-year-old morbidly obese female , comfortable in no apparent distress. The patient is currently on 3 L of oxygen by nasal cannula. HEAD: Normocephalic and atraumatic EYES: Normal reaction of pupils, equal size. NOSE: Clear with pink turbinates. THROAT: No erythema or exudates. NECK: No masses, no JVD. CHEST: No chest wall deformity. LUNGS: Equal air entry with expiratory wheezes throughout. no crackles, rhonchi or dullness. Increase bronchospasm wheezing and the patient has expiratory wheezes bilaterally. CVS: S1 and S2 normal with no audible murmur, irregular rhythm. No extra heart sounds. ABDOMEN: Obese abdomen, No hepatosplenomegaly, active bowel sounds, no guarding or rigidity. SPINE: No scoliosis or deformity SKIN: No rashes CENTRAL NERVOUS SYSTEM: No focal deficits, tone is normal in all 4 extremities. EXTREMITIES: There is moderate nonpitting bilateral lower extremity peripheral edema. No clubbing, or cyanosis. Peripheral pulses are intact. - Labs CBC & Chem 7: 11/17/22 04:41 11/18/22 08:23 Labs: Abnormal Lab Results - Last 24 Hours (Table) 11/18/22 Range/Units 08:23 Sodium 130 L (137-145) mmol/L Chloride 94 L (98-107) mmol/L BUN 27 H (7-17) mg/dL Creatinine 1.15 H (0.52-1.04) mg/dL Glucose 202 H (74-99) mg/dL Calcium 7.5 L (8.4-10.2) mg/dL Assessment and Plan Assessment: Acute pulmonary embolism in the segmental branches of the right middle and lower lobes with subsegmental extension. There was apparently no CT evidence of right ventricular heart strain. Images are not available at this time. Currently anticoagulated on high intensity heparin infusion. Acute hypoxic respiratory failure secondary to above, currently on 3 L nasal cannula New-onset atrial fibrillation with rapid ventricular response Chronic obstructive pulmonary disease Recent urinary tract infection treated on outpatient basis with Bactrim, patient still experiencing symptoms of dysuria and frequency Essential hypertension History of uterine cancer status post hysterectomy Morbid obesity, with a BMI of 49 Ex-smoker, remote Plan: Patient's medications, labs, chest x-ray reviewed Chest CTA records were reviewed Continue high-intensity heparin infusion, and patient will be transitioned to a direct oral anticoagulant before discharge Echocardiogram is pending Venous Doppler of bilateral lower extremities pending Consult cardiology Start the patient on a combination of Symbicort inhaler and DuoNeb's Continue supplemental oxygen Repeat labs this morning Urinalysis reflex to culture We will continue to follow I have personally seen and examined the patient, performed the documentation and the assessment and plan as written. Number of minutes spent on the visit:20 There is a joint evaluation that was done along with the nurse practitioner. Floors is very well-known to me. She is a 86-year-old female patient, who was hospital approximately a week ago for decompensated heart failure. Subsequently she became short of breath and she started having chest pain or shortness of breath. She was found to be new onset atrial fibrillation and furthermore, CT angiogram that was done at the other hospital showed evidence of pulmonary embolism. The patient is currently on IV heparin. Her cardiac rhythm is still in atrial fibrillation. Still nature for the patient however remains hemodynamically stable. She is currently on oxygen at 3 L nasal cannula. Echocardiogram is pending. Doppler of the lower extremities are negative. Evaluation was done > 30 min Plan: Acute pulmonary embolism in the segmental branches of the right middle and lower lobes with subsegmental extension. There was apparently no CT evidence of right ventricular heart strain. Images are not available at this time. The patient was taken off the IV heparin and the patient was started on anticoagulation with Eliquis. Echocardiogram was also still pending for now. Acute hypoxic respiratory failure secondary to above, currently on 3 L nasal cannula New-onset atrial fibrillation with rapid ventricular response , the patient anticoagulation, the patient is on metoprolol 50 mg twice a day and the patient is also on Cardizem drip at 5 mg an hour which will be gradually weaned off Chronic obstructive pulmonary disease, the patient is demonstrating treating bronchospasm and wheezing Recent urinary tract infection treated on outpatient basis with Bactrim, patient still experiencing symptoms of dysuria and frequency Essential hypertension History of uterine cancer status post hysterectomy Morbid obesity, with a BMI of 49 Ex-smoker, remote Plan Continue anticoagulation with Eliquis 10 mg by mouth twice a day IV heparin has been discontinued Agree on Lasix 40 mg every 12 hours Start the patient on IV Solu-Medrol milligrams every 6 hours Continue DuoNeb nebulized treatments [id number] 4 times a day Echocardiogram results are still pending We'll continue to follow cardiology is on the case regarding the new onset atrial fibrillation.
[2022-11-18] MEDS: DILTIAZEM 125 MG in SODIUM CHLORIDE 0.9% 100 ML IV SCH (11:57)
[2022-11-18] MEDS: methylPREDNISolone SOD SUCCI 40 MG/ML 1 ML VIAL IV SCH ×3 (12:25→23:52)
--- NOTE | 2022-11-18 16:15 | XR ---
EXAMINATION TYPE: XR chest 1V DATE OF EXAM: 11/18/2022 CLINICAL HISTORY: Wheezing progress study. TECHNIQUE: Single AP portable upright view of the chest is obtained. COMPARISON: Chest x-ray from one day earlier and older studies. FINDINGS: There is chronic parenchymal change with small to tiny left pleural effusion redemonstrat ed. Patchy bibasilar opacity favors atelectatic change. Cardiac silhouette size is stable and mildly enlarged with mitral annular calcifications redemonstrated. Degenerative change bilateral shoulders r ight greater than left is seen. IMPRESSION: Chronic changes without suspicious acute infiltrate. Stable small to tiny left pleural ef fusion noted.
[2022-11-18] MEDS: SYMBICORT 160-4.5 MCG INHALER INHALATION SCH ×2 (16:20→21:16)
[2022-11-18] MEDS: NYSTATIN 100,000UNIT/GM CREAM 30 GM TUBE TOPICAL SCH ×3 (18:00→21:21)
[2022-11-18] MEDS: METOPROLOL TARTRATE 50 MG TAB PO SCH (20:12)
[2022-11-18] MEDS: MELATONIN 5 MG TABLET PO SCH ×2 (20:13→23:52)
[2022-11-18] MEDS ORDERED: DEXTROSE 50% SYRINGE 50 ML IVP PRN ×4 (20:25→20:29)
--- NOTE | 2022-11-18 20:37 | P.PN ---
Subjective Progress Note Date: 11/18/22 Patient is transferred from outside hospital for a pulmonary embolism patient presented with chest pain found to have subsegmental PE bilaterally. Patient was also having shortness of breath. CT was read as evidence of right ventricular strain, echo be pending troponin is negative. Patient is mildly hyponatremic is on Bactrim for UTI patient continues to complain of burning sensation patient is presently in atrial fibrillation with rapid ventricular rate. Cardiology and pulmonology evaluated the patient 11/18/2022 Patient is seen and evaluated and follow-up and currently has been transitioned to oral eliquis. Patient being followed by cardiology along with pulmonary maintained on Cardizem although metoprolol being adjusted and increased and working on weaning Cardizem drip. Patient continues on 3 L via nasal cannula and does not normally wear oxygen outpatient also noted to have some wheezing and is receiving DuoNeb treatments along with now being started on low-dose steroids. Will add sliding scale and monitor Accu-Cheks before meals and at bedtime his blood sugars were mildly elevated. Patient denies having any burning or frequency with urination at this time. Patient is receiving IV Lasix and sodium level continues to be 130 and potassium level borderline. We'll continue lower dose IV Lasix as patient is having an acute on chronic CHF exacerbation as well. Patient was just notified that her in the emergency department in respiratory distress. Daughter is at the bedside. Patient with weakness would recommend PT/OT therapy evaluation. Recommend follow-up labs in the a.m. Chest x-ray ordered and pending. Review of systems: Constitutional: No reports of fatigue, fever, or chills Cardiovascular: No reports of chest pain or palpitations Respiratory: reports of continued shortness of breath GI: No reports of nausea, vomiting, or diarrhea, reports no real appetite : No reports of dysuria or retention Neurovascular: reports of generalized weakness All medications have been reviewed PHYSICAL EXAMINATION: GENERAL: The patient is alert and oriented x3, not in any acute distress. Well developed, well nourished. Morbidly obese HEENT: Pupils are round and equally reacting to light. EOMI. No scleral icterus. No conjunctival pallor. Normocephalic, atraumatic. No pharyngeal erythema. No thyromegaly. CARDIOVASCULAR: S1 and S2 present. Irregular, A. fib PULMONARY: Diminished breath sounds bilaterally with some faint crackles noted as well as expiratory wheezing at the bases ABDOMEN: Soft, obese. nontender, nondistended, normoactive bowel sounds. No palpable organomegaly. MUSCULOSKELETAL: No joint swelling or deformity. EXTREMITIES: No cyanosis, clubbing, or pedal edema. NEUROLOGICAL: Gross neurological examination did not reveal any focal deficits. Diffusely weak SKIN: No rashes. Assessment: -Subsegmental pulmonary embolism: Patient is already transitioned to oral anticoagulation. Echocardiogram revealed no evidence of right heart strain -Acute hypoxic respiratory failure secondary to pulmonary embolism -COPD, acute exacerbation -Acute on chronic congestive heart failure, acute exacerbation with preserved EF -New-onset atrial fibrillation with rapid ventricular rate secondary to pulmonary embolism, metoprolol being adjusted and weaning off Cardizem drip -Recent UTI which was treated as an outpatient with Bactrim continues to have burning sensation although urinalysis is negative for urinary tract infection patient will be started on Mycostatin powder for possible vaginal yeast infection and peritoneum -Hypertension -History of uterine cancer status post hysterectomy -Morbid obesity with a BMI of 49.1 -DVT prophylaxis: On anticoagulation as mentioned above -GI prophylaxis -Full code Plan: Recommend to continue with current medications and management with cardiology and pulmonary following Patient is having some elevated blood sugars and will add sliding scale as patient has been started on IV steroids for COPD exacerbation Patient also continued on IV Lasix and will monitor with repeat labs with possible transition to oral Lasix given patient's slightly elevated kidney functions Recommend to replace electrolytes per protocol Encouraged oral intake Wean FiO2 as tolerated Recommend PT/OT therapy evaluation The impression and plan of care has been dictated by Narcisa Felix, Nurse Practitioner as directed. Dr. Nohelia MD I have performed a history and examination and MDM of this patient, discussed the same with the dictator, and agree with the dictator's assessment and plan as written ,documented as a scribe. Based on total visit time, I have performed more than 50% of the visit. Objective - Vital Signs Vital signs: Vital Signs Temp 98.2 F 11/17/22 21:31 Pulse 118 H 11/18/22 09:25 Resp 22 11/18/22 03:56 BP 114/68 11/18/22 03:56 Pulse Ox 94 L 11/18/22 03:56 FiO2 Intake & Output 11/17/22 11/18/22 11/18/22 18:59 06:59 18:59 Intake Total 110 118 Output Total 350 Balance 110 -350 118 Weight 106.594 kg Intake: Oral 110 118 Output: Urine 350 Other: Voiding Method External Catheter External Catheter # Voids 2 - Labs CBC & Chem 7: 11/17/22 04:41 11/18/22 08:23 Labs: Abnormal Lab Results - Last 24 Hours (Table) 11/18/22 Range/Units 08:23 Sodium 130 L (137-145) mmol/L Chloride 94 L (98-107) mmol/L BUN 27 H (7-17) mg/dL Creatinine 1.15 H (0.52-1.04) mg/dL Glucose 202 H (74-99) mg/dL Calcium 7.5 L (8.4-10.2) mg/dL
[2022-11-18] MEDS ORDERED: INSULIN ASPART (NovoLOG) 100 UNIT/ML VIAL SQ SCH (21:00)
[2022-11-18 21:13] LABS: Glucose,Whole Blood 212 mg/dL (70-110)
[2022-11-18] MEDS: INSULIN ASPART (NovoLOG) 100 UNIT/ML VIAL SQ SCH (21:20)
[2022-11-18] MEDS: FUROSEMIDE 10 MG/ML 2 ML VIAL IV SCH (21:21)
[2022-11-19] MEDS: HYDROcodone/APAP 7.5-325MG 1 EACH TAB PO SCH ×3 (04:43→20:32)
[2022-11-19] MEDS: methylPREDNISolone SOD SUCCI 40 MG/ML 1 ML VIAL IV SCH ×3 (05:10→13:23)
[2022-11-19 06:16] LABS: Glucose,Whole Blood 197 mg/dL (70-110)
[2022-11-19] MEDS: INSULIN ASPART (NovoLOG) 100 UNIT/ML VIAL SQ SCH ×4 (06:24→20:32)
[2022-11-19] MEDS: SYMBICORT 160-4.5 MCG INHALER INHALATION SCH ×2 (08:02→20:11)
[2022-11-19] MEDS: IPRATROPIUM-ALBUTEROL 3 ML NEB INHALATION SCH ×4 (08:02→20:11)
[2022-11-19] MEDS: METOPROLOL TARTRATE 50 MG TAB PO SCH ×2 (08:37→20:32)
[2022-11-19] MEDS: APIXABAN 5 MG TAB PO SCH ×2 (08:37→20:32)
[2022-11-19] MEDS: FUROSEMIDE 10 MG/ML 2 ML VIAL IV SCH (08:37)
[2022-11-19] MEDS: POTASSIUM CHLORIDE ER 20 MEQ TAB.ER PO SCH (08:37)
[2022-11-19] MEDS: PANTOPRAZOLE 40 MG TABLET PO SCH (08:37)
[2022-11-19 09:32] LABS: Basophils % (A) 0 %; Eosinophils # (A) 0.1 k/uL (0-0.7); Eosinophils % (A) 1 %; HCT 40.6 % (34.0-46.0); HGB 12.5 gm/dL (11.4-16.0); Hypochromasia Marked; Lymphocytes # (A) 1.1 k/uL (1.0-4.8); Lymphocytes % (A) 10 %; MCH 29.4 pg (25.0-35.0); MCHC 30.7 g/dL (31.0-37.0); MCV 95.9 fL (80.0-100.0); Mean Platelet Volume 7.4; Monocytes # (A) 0.3 k/uL (0-1.0); Monocytes % (A) 3 %; Neutrophils # (A) 10.1 k/uL (1.3-7.7); Neutrophils % (A) 87 %; Platelet Count 378 k/uL (150-450); RBC 4.24 m/uL (3.80-5.40); RDW 13.5 % (11.5-15.5); WBC 11.6 k/uL (3.8-10.6)
[2022-11-19] MEDS ORDERED: METOPROLOL TARTRATE 25 MG TAB PO STA (09:49)
[2022-11-19 09:58] LABS: Calcium 7.9 mg/dL (8.4-10.2); Magnesium 1.8 mg/dL (1.6-2.3); Potassium 4.4 mmol/L (3.5-5.1)
[2022-11-19] MEDS: PHENAZOPYRIDINE 100 MG TAB PO SCH (10:51)
[2022-11-19 11:43] LABS: Glucose,Whole Blood 208 mg/dL (70-110)
[2022-11-19] MEDS: diphenhydrAMINE 25 MG CAP PO PRN (11:45)
[2022-11-19] MEDS: DILTIAZEM ORAL 30 MG TAB PO SCH ×3 (12:45→21:49)
--- NOTE | 2022-11-19 13:19 | P.PN ---
Subjective Progress Note Date: 11/19/22 HISTORY OF PRESENT ILLNESS: This is a 86-year-old female with a past medical history significant for COPD, congestive heart failure, hypertension, and GERD. Patient follows in the office with Dr. Medellin but has not been seen in the office since April 2021. We have been asked to see the patient in consultation for new onset atrial fibrillation. Patient examined at the bedside in the emergency room. Patient presented [facility] with a chief complaint of chest pain and shortness of breath. Patient was transferred to [facility] for further evaluation. She stat es that she was having chest pain in the middle of her chest and into her shoulder and behind her left ear. She also reports feeling short of breath for the past few days. She states her shortness of breath is worse with deep inspiration. She reports lower extremity edema which is not new. Patient underwent a CTA revealing acute pulmonary embolism in the segmental branches of the right middle and lower lobe with subsegmental extension. No evidence of right heart strain. The patient was started on IV heparin. The patient was also found to be in A. fib with RVR. The patient denies a history of atrial fibrillation. She does report feeling palpitations and dizzy at times. At the time of examination the patient's heart rates are around 110. She just received her morning medications which include metoprolol per the nurse at the bedside. She does report that she was recently admitted at [facility] for CHF exacerbation. * Chest xray negative for acute process * . Lower extremity Doppler: Negative for DVT bilaterally * Laboratory data: WBC 12.9. Hemoglobin 13.0. Platelet count 276. Sodium 131. Potassium 3.9. BUN 22. Creatinine 0.85. Troponin negative 1. ProBNP 575 0. * Current home cardiac medications include losartan 100 mg daily, metoprolol titrate 50 mg daily, Lasix 40 mg daily 11/18/2022 Patient examined this morning at the bedside. Patient denies chest pain or pressure. She reports continued shortness of breath. She was started on IV steroids per pulmonary today. Telemetry reveals atrial fibrillation with heart rate between [id number]. Patient remains on IV Cardizem at 5 mg an hour. Patient's losartan was discontinued yesterday secondary to borderline hypotension. Most recent blood pressure 114/60. Echocardiogram completed revealing ejection fraction 70%, moderate to severe pulmonary hypertension, and mild aortic stenosis 11/19/2022 Patient examined this morning at the bedside. Patient denies chest pain or pressure. She reports her shortness of breath is improving from yesterday. She remains on IV Lasix. Telemetry reveals atrial for ablation with a heart rate in the 120s. PHYSICAL EXAM: VITAL SIGNS: Reviewed. GENERAL: Well-developed in no acute distress. HEENT: Head is normocephalic. Pupils are equal, round. Sclerae anicteric. Mucous membranes of the mouth are moist. Neck supple. No JVD or thyromegaly LUNGS: Respirations even and unlabored. Lungs diminished bilaterally. HEART: Tachycardic. Irregular rate and rhythm. S1 and S2 heard. ABDOMEN: Soft. Nondistended. Nontender. EXTREMITIES: Normal range of motion. No clubbing or cyanosis. Peripheral pulses intact. 1-2+ bilateral lower extremity edema NEUROLOGIC: Awake and alert. Oriented x 3. ASSESSMENT: Shortness of breath Acute right-sided pulmonary embolism Acute on chronic heart failure with preserved ejection fraction New-onset atrial fibrillation with RVR Acute COPD exacerbation Hypertension GERD Morbid obesity: BMI 49.1 PLAN: Continue Eliquis 10mg BID Discontinue IV Lasix. Begin oral Lasix 40 mg daily Add Cardizem 30 mg 3 times a day for optimal heart rate control Continue telemetry monitoring Further recommendations pending patient's course Nurse practitioner note has been reviewed by physician. Signing provider agrees with the documented findings, assessment, and plan of care. Objective - Vital Signs Vital signs: Vital Signs Temp 97.6 F 11/19/22 08:32 Pulse 84 11/19/22 12:01 Resp 19 11/19/22 10:41 BP 115/77 11/19/22 08:32 Pulse Ox 93 L 11/19/22 08:32 FiO2 Intake & Output 11/18/22 11/19/22 11/19/22 18:59 06:59 18:59 Intake Total 236 Output Total 600 550 Balance -364 -550 Weight 117 kg Intake: Oral 236 Output: Urine 600 550 Straight 300 Other: Voiding Method External Catheter External Catheter External Catheter - Labs CBC & Chem 7: 11/19/22 09:12 11/19/22 09:12 Labs: Abnormal Lab Results - Last 24 Hours (Table) 11/18/22 11/19/22 11/19/22 Range/Units 21:09 06:14 09:12 WBC (3.8-10.6) k/uL MCHC (31.0-37.0) g/dL Neutrophils # (1.3-7.7) k/uL Sodium 130 L (137-145) mmol/L Chloride 94 L (98-107) mmol/L BUN 28 H (7-17) mg/dL Glucose 259 H (74-99) mg/dL POC Glucose (mg/dL) 212 H 197 H (70-110) mg/dL Calcium 7.9 L (8.4-10.2) mg/dL 11/19/22 11/19/22 Range/Units 09:12 11:41 WBC 11.6 H (3.8-10.6) k/uL MCHC 30.7 L (31.0-37.0) g/dL Neutrophils # 10.1 H (1.3-7.7) k/uL Sodium (137-145) mmol/L Chloride (98-107) mmol/L BUN (7-17) mg/dL Glucose (74-99) mg/dL POC Glucose (mg/dL) 208 H (70-110) mg/dL Calcium (8.4-10.2) mg/dL
[2022-11-19] MEDS: NYSTATIN 100,000UNIT/GM CREAM 30 GM TUBE TOPICAL SCH ×3 (14:54→21:51)
--- NOTE | 2022-11-19 15:28 | P.PN ---
Subjective Progress Note Date: 11/19/22 I am seeing this patient in new consultation today 11/17/2022 in the emergency room for right-sided pulmonary embolism. Patient is an 86-year-old white female with past medical history significant for COPD, CHF, hypertension, uterine cancer status post hysterectomy, morbid obesity, and is a remote ex-smoker. She has been seen by Dr. Lynch in the past for COPD. Patient's currently on a combination of Advair and albuterol inhalers. Patient has reportedly had a recent hospital stay at [facility] between October 26 and November 01 for CHF exacerbation. She has been quite sedentary. Early yesterday morning, the patient started to experience shortness of breath and right-sided chest pain, that awoke her from her sleep. She went to [facility], and underwent a chest CTA. Clinical impression reads that there is an acute pulmonary embolism in the segmental branches of the right middle and lower lobes with subsegmental extension. There was apparently no CT evidence of right ventricular heart strain. Images are not available at this time. Patient was also found to be in new onset atrial fibrillation. Patient was started on a high intensity heparin infusion, and transferred to [facility]. Patient is currently sitting up in bed, on 3 L nasal cannula, in no acute distress. Chest x-ray shows no acute cardiopulmonary process. Patient denies any previous history of DVTs or PEs, recent travel, trauma. She does report that her daughter has history of DVT. Labs this morning are pending. Troponin levels were reportedly elevated at outside facility. Lungs are bronchospastic on auscultation. Patient is on a combination of albuterol and Symbicort inhalers. Heart rhythm is currently atrial fibrillation with rapid ventricular rate ranging from 100 to 120 bpm. Otherwise, the patient is hemodynamicly stable. On today's evaluation of 11/18/2022, the patient is grieving loss of her . The patient otherwise is stable. She remains atrial fibrillation. She was started on a Cardizem drip which is running at 5 mg an hour. She was taken off the IV heparin and she was started on anticoagulation with Eliquis. Echocardiogram was done and the results are still pending for now. On today's evaluation, she was noted to be increasingly bronchospastic and wheezy. She was started on Lasix 40 mg IV every 12 hours. She'll be also started on low-dose IV Solu-Medrol 40 mg every 6 hours. She is on DuoNeb [employer] [id number]. She is on metoprolol 50 mg twice a day and a Cardizem drip will be gradually weaned off and discontinued. No chest pain. No significant shortness of breath at this point in time. On 11/19/2022, the patient is feeling well. Less short of breath and bronchospastic compared to yesterday. Remains in atrial fibrillation. She is taking anticoagulations and the patient is currently on Eliquis 10 mg by mouth twice a day. No chest pain. No angina. No palpitations. Echo of the heart was noted from yesterday the patient has preserved LV function. Ejection fraction is order of 70% and the patient is hyperdynamic. The patient has LVH. The patient has mild aortic stenosis and moderate degree of pulmonary hyper tension and estimated pulmonary artery pressure was around 61. This could be related to chronic pulmonary hypertension as the patient has obvious features of obstructive sleep apnea and COPD. This pulmonary embolism is unlikely to be accounting for the pulmonary hypertension. I suspect this is a chronic problem. WBC count is 11.6 with a hemoglobin 12.5 and a platelet count of 378. Sodium is at 1:30 and the BUN is at 28 with a creatinine of 1.08. Objective - Vital Signs Vital signs: Vital Signs Temp 97.6 F 11/19/22 08:32 Pulse 136 H 11/19/22 10:41 Resp 19 11/19/22 10:41 BP 115/77 11/19/22 08:32 Pulse Ox 93 L 11/19/22 08:32 FiO2 Intake & Output 11/18/22 11/19/22 11/19/22 18:59 06:59 18:59 Intake Total 236 Output Total 600 550 Balance -364 -550 Weight 117 kg Intake: Oral 236 Output: Urine 600 550 Straight 300 Other: Voiding Method External Catheter External Catheter External Catheter - Exam GENERAL EXAM: Alert, 86-year-old morbidly obese female , comfortable in no apparent distress. The patient is currently on 3 L of oxygen by nasal cannula. HEAD: Normocephalic and atraumatic EYES: Normal reaction of pupils, equal size. NOSE: Clear with pink turbinates. THROAT: No erythema or exudates. NECK: No masses, no JVD. CHEST: No chest wall deformity. LUNGS: Equal air entry with expiratory wheezes throughout. no crackles, rhonchi or dullness. Diminished breath sounds otherwise clear on today's evaluation CVS: S1 and S2 normal with no audible murmur, irregular rhythm. No extra heart sounds. ABDOMEN: Obese abdomen, No hepatosplenomegaly, active bowel sounds, no guarding or rigidity. SPINE: No scoliosis or deformity SKIN: No rashes CENTRAL NERVOUS SYSTEM: No focal deficits, tone is normal in all 4 extremities. EXTREMITIES: There is moderate nonpitting bilateral lower extremity peripheral edema. No clubbing, or cyanosis. Peripheral pulses are intact. - Labs CBC & Chem 7: 11/19/22 09:12 11/19/22 09:12 Labs: Abnormal Lab Results - Last 24 Hours (Table) 11/18/22 11/19/22 11/19/22 Range/Units 21:09 06:14 09:12 WBC (3.8-10.6) k/uL MCHC (31.0-37.0) g/dL Neutrophils # (1.3-7.7) k/uL Sodium 130 L (137-145) mmol/L Chloride 94 L (98-107) mmol/L BUN 28 H (7-17) mg/dL Glucose 259 H (74-99) mg/dL POC Glucose (mg/dL) 212 H 197 H (70-110) mg/dL Calcium 7.9 L (8.4-10.2) mg/dL 11/19/22 Range/Units 09:12 WBC 11.6 H (3.8-10.6) k/uL MCHC 30.7 L (31.0-37.0) g/dL Neutrophils # 10.1 H (1.3-7.7) k/uL Sodium (137-145) mmol/L Chloride (98-107) mmol/L BUN (7-17) mg/dL Glucose (74-99) mg/dL POC Glucose (mg/dL) (70-110) mg/dL Calcium (8.4-10.2) mg/dL Assessment and Plan Assessment: Acute pulmonary embolism in the segmental branches of the right middle and lower lobes with subsegmental extension. There was apparently no CT evidence of right ventricular heart strain. Images are not available at this time. Currently anticoagulated on high intensity heparin infusion. Acute hypoxic respiratory failure secondary to above, currently on 3 L nasal cannula New-onset atrial fibrillation with rapid ventricular response Chronic obstructive pulmonary disease Recent urinary tract infection treated on outpatient basis with Bactrim, patient still experiencing symptoms of dysuria and frequency Essential hypertension History of uterine cancer status post hysterectomy Morbid obesity, with a BMI of 49 Ex-smoker, remote Plan: Patient's medications, labs, chest x-ray reviewed Chest CTA records were reviewed Continue high-intensity heparin infusion, and patient will be transitioned to a direct oral anticoagulant before discharge Echocardiogram is pending Venous Doppler of bilateral lower extremities pending Consult cardiology Start the patient on a combination of Symbicort inhaler and DuoNeb's Continue supplemental oxygen Repeat labs this morning Urinalysis reflex to culture We will continue to follow I have personally seen and examined the patient, performed the documentation and the assessment and plan as written. Number of minutes spent on the visit:20 There is a joint evaluation that was done along with the nurse practitioner. Floors is very well-known to me. She is a 86-year-old female patient, who was hospital approximately a week ago for decompensated heart failure. Subsequently she became short of breath and she started having chest pain or shortness of breath. She was found to be new onset atrial fibrillation and furthermore, CT angiogram that was done at the other hospital showed evidence of pulmonary embolism. The patient is currently on IV heparin. Her cardiac rhythm is still in atrial fibrillation. Still nature for the patient however remains hemodynamically stable. She is currently on oxygen at 3 L nasal cannula. Echocardiogram is pending. Doppler of the lower extremities are negative. Evaluation was done > 30 min Plan: Acute pulmonary embolism in the segmental branches of the right middle and lower lobes with subsegmental extension. There was apparently no CT evidence of right ventricular heart strain. Images are not available at this time. The patient was taken off the IV heparin and the patient was started on anticoagulation with Eliquis. Echocardiogram showed pulmonary hypertension which probably is a chronic problem and the patient is chronic hypoxemia, features RAFAEL and COPD. Patient is doing well on anticoagulation with Eliquis 10 mg by mouth twice a day Acute hypoxic respiratory failure secondary to above, currently on 3 L nasal cannula New-onset atrial fibrillation with rapid ventricular response , the patient anticoagulation, the patient is on metoprolol 50 mg twice a day and the patient is on anticoagulants Chronic obstructive pulmonary disease, the patient is demonstrating treating bronchospasm and wheezing, improved with steroids and bronchodilators Recent urinary tract infection treated on outpatient basis with Bactrim, patient still experiencing symptoms of dysuria and frequency Essential hypertension History of uterine cancer status post hysterectomy Morbid obesity, with a BMI of 49 Ex-smoker, remote Plan Continue anticoagulation with Eliquis 10 mg by mouth twice a day Stop the IV Solu-Medrol and start the patient prednisone burst taper Continue Lasix 40 mg by mouth daily Continue DuoNeb nebulized treatments [id number] 4 times a day Echocardiogram results were noted We'll continue to follow cardiology is on the case regarding the new onset atrial fibrillation.
[2022-11-19 16:28] LABS: Glucose,Whole Blood 185 mg/dL (70-110)
[2022-11-19] MEDS: predniSONE 10 MG TAB PO SCH (16:46)
--- NOTE | 2022-11-19 20:01 | P.PN ---
Progress Note - Text Progress Note Date: 11/19/[address] Dorman, is transferred from outside hospital for a pulmonary embolism patient presented with chest pain found to have subsegmental PE bilaterally. Patient was also having shortness of breath. CT was read as evidence of right ventricular strain, echo be pending troponin is negative. Patient is mildly hyponatremic is on Bactrim for UTI patient continues to complain of burning sensation patient is presently in atrial fibrillation with rapid ventricular rate. Cardiology and pulmonology evaluated the patient 11/18/2022 Patient is seen and evaluated and follow-up and currently has been transitioned to oral eliquis. Patient being followed by cardiology along with pulmonary m aintained on Cardizem although metoprolol being adjusted and increased and working on weaning Cardizem drip. Patient continues on 3 L via nasal cannula and does not normally wear oxygen outpatient also noted to have some wheezing and is receiving DuoNeb treatments along with now being started on low-dose steroids. Will add sliding scale and monitor Accu-Cheks before meals and at bedtime his blood sugars were mildly elevated. Patient denies having any burning or frequency with urination at this time. Patient is receiving IV Lasix and sodium level continues to be 130 and potassium level borderline. We'll continue lower dose IV Lasix as patient is having an acute on chronic CHF exacerbation as well. Patient was just notified that her in the emergency department in respiratory distress. Daughter is at the bedside. Patient with weakness would recommend PT/OT therapy evaluation. Recommend follow-up labs in the a.m. Chest x-ray ordered and pending. November 19: I assumed care of the patient today. Breathing is better. Feels a bit better. He was in atrial fibrillation. On eliquis. Patient's pulmonary hypertension is felt to be more chronic. The symptoms suggested a fall off RAFAEL/COPD. Active Medications Acetaminophen (Acetaminophen Tab 325 Mg Tab) 650 mg PO Q6HR PRN PRN Reason: Mild Pain or Fever > 100.5 Hydrocodone Bitart/Acetaminophen (Hydrocodone/Apap 5-325mg 1 Each Tab) 1 each PO Q4HR PRN PRN Reason: Moderate Pain (Scale 4 to 6) Hydrocodone Bitart/Acetaminophen (Hydrocodone/Apap 7.5-325mg 1 Each Tab) 1 each PO Q8H [place] Last Admin: 11/19/22 12:45 Dose: 1 each Albuterol/Ipratropium (Ipratropium-Albuterol 3 Ml Neb) 3 ml INHALATION RT-QID [facility] Last Admin: 11/19/22 15:44 Dose: 3 ml Albuterol/Ipratropium (Ipratropium-Albuterol 3 Ml Neb) 3 ml INHALATION RT-Q2H PRN PRN Reason: Shortness Of Breath Or Wheezing Last Admin: 11/17/22 05:00 Dose: 3 ml Apixaban (Apixaban 5 Mg Tab) 10 mg PO BID [facility]; Taper Stop: 12/17/22 08:59 Last Admin: 11/19/22 08:37 Dose: 10 mg Budesonide/Formoterol Fumarate (Symbicort 160-4.5 Mcg Inhaler) 2 puff INHALATION RT-BID [facility] Last Admin: 11/19/22 08:02 Dose: 2 puff Dextrose/Water (Dextrose 50% Syringe 50 Ml) 25 ml IVP PER PROTOCOL PRN; Protocol PRN Reason: Hypoglycemia Dextrose/Water (Dextrose 50% Syringe 50 Ml) 50 ml IVP PER PROTOCOL PRN; Protocol PRN Reason: Hypoglycemia Diltiazem HCl (Diltiazem Oral 30 Mg Tab) 30 mg PO TID [facility] Last Admin: 11/19/22 16:46 Dose: 30 mg Diphenhydramine HCl (Diphenhydramine 25 Mg Cap) 25 mg PO Q6H PRN PRN Reason: Itching Last Admin: 11/19/22 11:45 Dose: 25 mg Furosemide (Furosemide 40 Mg Tab) 40 mg PO DAILY [facility] Insulin Aspart (Insulin Aspart (Novolog) 100 Unit/Ml Vial) 0 unit SQ ACHS [facility]; Protocol Last Admin: 11/19/22 16:47 Dose: 2 unit Melatonin (Melatonin 5 Mg Tablet) 5 mg PO HS [facility] Last Admin: 11/18/22 23:52 Dose: 5 mg Metoprolol Tartrate (Metoprolol Tartrate 50 Mg Tab) 50 mg PO BID [facility] Last Admin: 11/19/22 08:37 Dose: 50 mg Naloxone HCl (Naloxone 0.4 Mg/Ml 1 Ml Vial) 0.2 mg IV Q2M PRN PRN Reason: Opioid Reversal Nystatin (Nystatin 100,000unit/Gm Cream 30 Gm Tube) 1 applic TOPICAL TID [facility]; Protocol Last Admin: 11/19/22 16:46 Dose: 1 applic Pantoprazole Sodium (Pantoprazole 40 Mg Tablet) 40 mg PO DAILY [facility] Last Admin: 11/19/22 08:37 Dose: 40 mg Potassium Chloride (Potassium Chloride Er 20 Meq Tab.Er) 20 meq PO DAILY [facility] Last Admin: 11/19/22 08:37 Dose: 20 meq Prednisone (Prednisone 10 Mg Tab) 30 mg PO DAILY [facility] Last Admin: 11/19/22 16:46 Dose: 30 mg On examination: VITAL SIGNS: 97.6, 120, 18, 115/74, 95% on 3 L GENERAL APPEARANCE: BMI 53.9, in bed, slightly short of breath HEENT: Normal external appearance of nose and ear. Oral cavity normal EYES: Pupils equal. Conjunctiva normal. NECK: JVD not raised. Mass not palpable. RESPIRATORY: Respiratory effort increased. Lungs decreased breath sounds CARDIOVASCULAR: First and second sounds normal. No edema. ABDOMEN: Soft. Liver and spleen not palpable. No tenderness. No mass palpable. PSYCHIATRY: Alert and oriented x3. Mood and affect normal. INVESTIGATIONS, reviewed in the clinical context: White count 11.6 hemoglobin 12.5 platelets 378 potassium 4.4 creatinine 1.02 2-D echocardiogram: EF more than 70%. Moderate aortic valve sclerosis. Moderate to severe pulmonary hypertension. Assessment: -Acute Subsegmental pulmonary embolism: No right heart strain and 2-D echo. Started on eliquis. -Acute hypoxic respiratory failure secondary to pulmonary embolism -COPD, in a ex-smoker acute exacerbation. DuoNeb 4 times a day. Symbicort. -Acute on chronic congestive heart failure, acute exacerbation with preserved EF: Better IV Lasix changed to oral Lasix -atrial fibrillation with rapid ventricular rate , uncontrolled Lopressor 50 mg twice a day Cardizem 30 mg 3 times a day eliquis -Recent UTI which was treated as an outpatient with Bactrim continues to have burning sensation although urinalysis is negative for urinary tract infection patient will be started on Mycostatin powder for possible vaginal yeast infection and peritoneum -Essential Hypertension Lopressor, Cardizem -History of uterine cancer status post hysterectomy -Morbid obesity with a BMI of 53.9 Weight loss measures -Full code
[2022-11-19 20:08] LABS: Glucose,Whole Blood 183 mg/dL (70-110)
[2022-11-19] MEDS: MELATONIN 5 MG TABLET PO SCH (20:32)
[2022-11-20] MEDS: HYDROcodone/APAP 5-325MG 1 EACH TAB PO PRN (02:18)
[2022-11-20] MEDS: HYDROcodone/APAP 7.5-325MG 1 EACH TAB PO SCH ×3 (05:13→20:03)
[2022-11-20] MEDS: INSULIN ASPART (NovoLOG) 100 UNIT/ML VIAL SQ SCH ×4 (05:44→23:03)
[2022-11-20] MEDS: IPRATROPIUM-ALBUTEROL 3 ML NEB INHALATION SCH ×4 (08:08→20:04)
[2022-11-20] MEDS: SYMBICORT 160-4.5 MCG INHALER INHALATION SCH ×2 (08:08→20:04)
[2022-11-20] MEDS: APIXABAN 5 MG TAB PO SCH ×2 (08:33→20:04)
[2022-11-20] MEDS: POTASSIUM CHLORIDE ER 20 MEQ TAB.ER PO SCH (08:33)
[2022-11-20] MEDS: METOPROLOL TARTRATE 50 MG TAB PO SCH (08:33)
[2022-11-20] MEDS: DILTIAZEM ORAL 30 MG TAB PO SCH ×3 (08:33→22:56)
[2022-11-20] MEDS: FUROSEMIDE 40 MG TAB PO SCH (08:33)
[2022-11-20] MEDS: predniSONE 10 MG TAB PO SCH (08:33)
[2022-11-20] MEDS: PANTOPRAZOLE 40 MG TABLET PO SCH (08:33)
[2022-11-20] MEDS: NYSTATIN 100,000UNIT/GM CREAM 30 GM TUBE TOPICAL SCH ×3 (08:34→22:56)
[2022-11-20] MEDS ORDERED: METOPROLOL TARTRATE 25 MG TAB PO STA (09:30)
[2022-11-20 09:34] VITALS: BMI 54.1
--- NOTE | 2022-11-20 10:48 | P.PN ---
Subjective Progress Note Date: 11/20/22 HISTORY OF PRESENT ILLNESS: This is a 86-year-old female with a past medical history significant for COPD, congestive heart failure, hypertension, and GERD. Patient follows in the office with Dr. Medellin but has not been seen in the office since April 2021. We have been asked to see the patient in consultation for new onset atrial fibrillation. Patient examined at the bedside in the emergency room. Patient presented [facility] with a chief complaint of chest pain and shortness of breath. Patient was transferred to [facility] for further evaluation. She stat es that she was having chest pain in the middle of her chest and into her shoulder and behind her left ear. She also reports feeling short of breath for the past few days. She states her shortness of breath is worse with deep inspiration. She reports lower extremity edema which is not new. Patient underwent a CTA revealing acute pulmonary embolism in the segmental branches of the right middle and lower lobe with subsegmental extension. No evidence of right heart strain. The patient was started on IV heparin. The patient was also found to be in A. fib with RVR. The patient denies a history of atrial fibrillation. She does report feeling palpitations and dizzy at times. At the time of examination the patient's heart rates are around 110. She just received her morning medications which include metoprolol per the nurse at the bedside. She does report that she was recently admitted at [facility] for CHF exacerbation. * Chest xray negative for acute process * . Lower extremity Doppler: Negative for DVT bilaterally * Laboratory data: WBC 12.9. Hemoglobin 13.0. Platelet count 276. Sodium 131. Potassium 3.9. BUN 22. Creatinine 0.85. Troponin negative 1. ProBNP 575 0. * Current home cardiac medications include losartan 100 mg daily, metoprolol titrate 50 mg daily, Lasix 40 mg daily 11/18/2022 Patient examined this morning at the bedside. Patient denies chest pain or pressure. She reports continued shortness of breath. She was started on IV steroids per pulmonary today. Telemetry reveals atrial fibrillation with heart rate between [id number]. Patient remains on IV Cardizem at 5 mg an hour. Patient's losartan was discontinued yesterday secondary to borderline hypotension. Most recent blood pressure 114/60. Echocardiogram completed revealing ejection fraction 70%, moderate to severe pulmonary hypertension, and mild aortic stenosis 11/19/2022 Patient examined this morning at the bedside. Patient denies chest pain or pressure. She reports her shortness of breath is improving from yesterday. She remains on IV Lasix. Telemetry reveals atrial for ablation with a heart rate in the 120s. 11/20/2022 Patient examined this morning to bedside. Patient's family is present. Patient denies chest pain or pressure. She reports improvement in her shortness of breath. She is wheezing less today compared to yesterday. Telemetry reveals atrial fibrillation with heart rate between 110-120. PHYSICAL EXAM: VITAL SIGNS: Reviewed. GENERAL: Well-developed in no acute distress. HEENT: Head is normocephalic. Pupils are equal, round. Sclerae anicteric. Mucous membranes of the mouth are moist. Neck supple. No JVD or thyromegaly LUNGS: Respirations even and unlabored. Lungs diminished bilaterally. HEART: Tachycardic. Irregular rate and rhythm. S1 and S2 heard. ABDOMEN: Soft. Nondistended. Nontender. EXTREMITIES: Normal range of motion. No clubbing or cyanosis. Peripheral pulses intact. 1+ bilateral lower extremity edema NEUROLOGIC: Awake and alert. Oriented x 3. ASSESSMENT: Shortness of breath Acute right-sided pulmonary embolism Acute on chronic heart failure with preserved ejection fraction New-onset atrial fibrillation with RVR Acute COPD exacerbation Hypertension GERD Morbid obesity: BMI 49.1 PLAN: Continue Eliquis 10mg BID Continue oral Lasix Continue current dose of Cardizem Increase Metoprolol to 75mg BID Continue telemetry monitoring Further recommendations pending patient's course Nurse practitioner note has been reviewed by physician. Signing provider agrees with the documented findings, assessment, and plan of care. Objective - Vital Signs Vital signs: Vital Signs Temp 98.1 F 11/19/22 20:24 Pulse 113 H 11/20/22 08:23 Resp 18 11/20/22 08:00 BP 128/72 11/20/22 08:00 Pulse Ox 95 11/20/22 08:12 FiO2 Intake & Output 11/19/22 11/20/22 11/20/22 18:59 06:59 18:59 Intake Total 780 480 Output Total 500 Balance 280 480 Weight 117.5 kg 117.5 kg Intake: Oral 780 480 Output: Urine 500 Other: Voiding Method External Catheter External Catheter External Catheter # Voids 1 - Labs CBC & Chem 7: 11/19/22 09:12 11/19/22 09:12 Labs: Abnormal Lab Results - Last 24 Hours (Table) 11/19/22 11/19/22 11/19/22 Range/Units 09:12 11:41 16:27 POC Glucose (mg/dL) 208 H 185 H (70-110) mg/dL Hemoglobin A1c 6.9 H (0.0-6.0) % 11/19/22 Range/Units 20:05 POC Glucose (mg/dL) 183 H (70-110) mg/dL Hemoglobin A1c (0.0-6.0) %
--- NOTE | 2022-11-20 13:48 | P.PN ---
Subjective Progress Note Date: 11/20/22 I am seeing this patient in new consultation today 11/17/2022 in the emergency room for right-sided pulmonary embolism. Patient is an 86-year-old white female with past medical history significant for COPD, CHF, hypertension, uterine cancer status post hysterectomy, morbid obesity, and is a remote ex-smoker. She has been seen by Dr. Lynch in the past for COPD. Patient's currently on a combination of Advair and albuterol inhalers. Patient has reportedly had a recent hospital stay at [facility] between October 26 and November 01 for CHF exacerbation. She has been quite sedentary. Early yesterday morning, the patient started to experience shortness of breath and right-sided chest pain, that awoke her from her sleep. She went to [facility], and underwent a chest CTA. Clinical impression reads that there is an acute pulmonary embolism in the segmental branches of the right middle and lower lobes with subsegmental extension. There was apparently no CT evidence of right ventricular heart strain. Images are not available at this time. Patient was also found to be in new onset atrial fibrillation. Patient was started on a high intensity heparin infusion, and transferred to [facility]. Patient is currently sitting up in bed, on 3 L nasal cannula, in no acute distress. Chest x-ray shows no acute cardiopulmonary process. Patient denies any previous history of DVTs or PEs, recent travel, trauma. She does report that her daughter has history of DVT. Labs this morning are pending. Troponin levels were reportedly elevated at outside facility. Lungs are bronchospastic on auscultation. Patient is on a combination of albuterol and Symbicort inhalers. Heart rhythm is currently atrial fibrillation with rapid ventricular rate ranging from 100 to 120 bpm. Otherwise, the patient is hemodynamicly stable. On today's evaluation of 11/18/2022, the patient is grieving loss of her . The patient otherwise is stable. She remains atrial fibrillation. She was started on a Cardizem drip which is running at 5 mg an hour. She was taken off the IV heparin and she was started on anticoagulation with Eliquis. Echocardiogram was done and the results are still pending for now. On today's evaluation, she was noted to be increasingly bronchospastic and wheezy. She was started on Lasix 40 mg IV every 12 hours. She'll be also started on low-dose IV Solu-Medrol 40 mg every 6 hours. She is on DuoNeb critical access hospitalrafts [id number]. She is on metoprolol 50 mg twice a day and a Cardizem drip will be gradually weaned off and discontinued. No chest pain. No significant shortness of breath at this point in time. On 11/19/2022, the patient is feeling well. Less short of breath and bronchospastic compared to yesterday. Remains in atrial fibrillation. She is taking anticoagulations and the patient is currently on Eliquis 10 mg by mouth twice a day. No chest pain. No angina. No palpitations. Echo of the heart was noted from yesterday the patient has preserved LV function. Ejection fraction is order of 70% and the patient is hyperdynamic. The patient has LVH. The patient has mild aortic stenosis and moderate degree of pulmonary hyper tension and estimated pulmonary artery pressure was around 61. This could be related to chronic pulmonary hypertension as the patient has obvious features of obstructive sleep apnea and COPD. This pulmonary embolism is unlikely to be accounting for the pulmonary hypertension. I suspect this is a chronic problem. WBC count is 11.6 with a hemoglobin 12.5 and a platelet count of 378. Sodium is at 1:30 and the BUN is at 28 with a creatinine of 1.08. On 11/20/2022, the patient doing well. She is resting comfortably in bed. She is on 2 L of oxygen by nasal cannula. She remains atrial fibrillation. Rate is controlled. She is also on anticoagulants. She is on Eliquis 10 mg by mouth twice a day. Echo was noted. No major edema lower extremities. The patient has no Daniel. bronchospasm and wheezing. She was started on a prednisone burst taper starting with 30 mg as of yesterday. She is also on Symbicort and DuoNeb nebulized treatments [id number]. Ambulating. Tolerating diet. No nausea or emesis. No other complaints otherwise. Remains on metoprolol 75 mg by mouth twice a day and those being adjusted by cardiology. Objective - Vital Signs Vital signs: Vital Signs Temp 98.1 F 11/19/22 20:24 Pulse 113 H 11/20/22 08:23 Resp 18 11/20/22 08:00 BP 128/72 11/20/22 08:00 Pulse Ox 95 11/20/22 08:12 FiO2 Intake & Output 11/19/22 11/20/22 11/20/22 18:59 06:59 18:59 Intake Total 780 480 Output Total 500 Balance 280 480 Weight 117.5 kg 117.5 kg Intake: Oral 780 480 Output: Urine 500 Other: Voiding Method External Catheter External Catheter External Catheter # Voids 1 - Exam GENERAL EXAM: Alert, 86-year-old morbidly obese female , comfortable in no apparent distress. The patient is currently on 3 L of oxygen by nasal cannula. HEAD: Normocephalic and atraumatic EYES: Normal reaction of pupils, equal size. NOSE: Clear with pink turbinates. THROAT: No erythema or exudates. NECK: No masses, no JVD. CHEST: No chest wall deformity. LUNGS: Equal air entry with expiratory wheezes throughout. no crackles, rhonchi or dullness. Diminished breath sounds otherwise clear on today's evaluation CVS: S1 and S2 normal with no audible murmur, irregular rhythm. No extra heart sounds. ABDOMEN: Obese abdomen, No hepatosplenomegaly, active bowel sounds, no guarding or rigidity. SPINE: No scoliosis or deformity SKIN: No rashes CENTRAL NERVOUS SYSTEM: No focal deficits, tone is normal in all 4 extremities. EXTREMITIES: There is moderate nonpitting bilateral lower extremity peripheral edema. No clubbing, or cyanosis. Peripheral pulses are intact. - Labs CBC & Chem 7: 11/19/22 09:12 11/19/22 09:12 Labs: Abnormal Lab Results - Last 24 Hours (Table) 11/19/22 11/19/22 11/19/22 Range/Units 09:12 11:41 16:27 POC Glucose (mg/dL) 208 H 185 H (70-110) mg/dL Hemoglobin A1c 6.9 H (0.0-6.0) % 11/19/22 Range/Units 20:05 POC Glucose (mg/dL) 183 H (70-110) mg/dL Hemoglobin A1c (0.0-6.0) % Assessment and Plan Plan: Acute pulmonary embolism in the segmental branches of the right middle and lower lobes with subsegmental extension. There was apparently no CT evidence of right ventricular heart strain. Images are not available at this time. The patient was taken off the IV heparin and the patient was started on anticoagulation with Eliquis. Echocardiogram showed pulmonary hypertension which probably is a chronic problem and the patient is chronic hypoxemia, features RAFAEL and COPD. Patient is doing well on anticoagulation with Eliquis 10 mg by mouth twice a day, clinically stable Acute hypoxic respiratory failure secondary to above, currently on 2 L nasal cannula New-onset atrial fibrillation with rapid ventricular response , the patient anticoagulation, the patient is on metoprolol 50 mg twice a day and the patient is on anticoagulants Chronic obstructive pulmonary disease, the patient is demonstrating treating bro nchospasm and wheezing, improved with steroids and bronchodilators Recent urinary tract infection treated on outpatient basis with Bactrim, patient still experiencing symptoms of dysuria and frequency Essential hypertension History of uterine cancer status post hysterectomy Morbid obesity, with a BMI of 49 Ex-smoker, remote Plan Continue anticoagulation with Eliquis 10 mg by mouth twice a day Continue prednisone burst taper Continue Lasix 40 mg by mouth daily Continue DuoNeb nebulized treatments [id number] 4 times a day Echocardiogram results were noted We'll continue to follow cardiology is on the case regarding the new onset atrial fibrillation. The patient's metoprolol dose has been modified to 75 mg by mouth twice a day. Shortness of breath is improving and there is no chest pain We'll continue to follow
--- NOTE | 2022-11-20 14:10 | P.PN ---
Progress Note - Text Progress Note Date: 11/20/[address] Dorman, is transferred from outside hospital for a pulmonary embolism patient presented with chest pain found to have subsegmental PE bilaterally. Patient was also having shortness of breath. CT was read as evidence of right ventricular strain, echo be pending troponin is negative. Patient is mildly hyponatremic is on Bactrim for UTI patient continues to complain of burning sensation patient is presently in atrial fibrillation with rapid ventricular rate. Cardiology and pulmonology evaluated the patient 11/18/2022 Patient is seen and evaluated and follow-up and currently has been transitioned to oral eliquis. Patient being followed by cardiology along with pulmonary m aintained on Cardizem although metoprolol being adjusted and increased and working on weaning Cardizem drip. Patient continues on 3 L via nasal cannula and does not normally wear oxygen outpatient also noted to have some wheezing and is receiving DuoNeb treatments along with now being started on low-dose steroids. Will add sliding scale and monitor Accu-Cheks before meals and at bedtime his blood sugars were mildly elevated. Patient denies having any burning or frequency with urination at this time. Patient is receiving IV Lasix and sodium level continues to be 130 and potassium level borderline. We'll continue lower dose IV Lasix as patient is having an acute on chronic CHF exacerbation as well. Patient was just notified that her in the emergency department in respiratory distress. Daughter is at the bedside. Patient with weakness would recommend PT/OT therapy evaluation. Recommend follow-up labs in the a.m. Chest x-ray ordered and pending. November 19: I assumed care of the patient today. Breathing is better. Feels a bit better. He was in atrial fibrillation. On eliquis. Patient's pulmonary hypertension is felt to be more chronic. The symptoms suggested RAFAEL/COPD. November 20: Remains in A. fib. Heart rate just above 100. Had a good breakfast. Tired this morning is could not sleep last night. Lopressor increased to 75 mg twice a day Active Medications Acetaminophen (Acetaminophen Tab 325 Mg Tab) 650 mg PO Q6HR PRN PRN Reason: Mild Pain or Fever > 100.5 Hydrocodone Bitart/Acetaminophen (Hydrocodone/Apap 5-325mg 1 Each Tab) 1 each PO Q4HR PRN PRN Reason: Moderate Pain (Scale 4 to 6) Last Admin: 11/20/22 02:18 Dose: 1 each Hydrocodone Bitart/Acetaminophen (Hydrocodone/Apap 7.5-325mg 1 Each Tab) 1 each PO Q8H [facility] Last Admin: 11/20/22 11:52 Dose: 1 each Albuterol/Ipratropium (Ipratropium-Albuterol 3 Ml Neb) 3 ml INHALATION RT-QID [facility] Last Admin: 11/20/22 12:32 Dose: 3 ml Albuterol/Ipratropium (Ipratropium-Albuterol 3 Ml Neb) 3 ml INHALATION RT-Q2H PRN PRN Reason: Shortness Of Breath Or Wheezing Last Admin: 11/17/22 05:00 Dose: 3 ml Apixaban (Apixaban 5 Mg Tab) 10 mg PO BID [facility]; Taper Stop: 12/17/22 08:59 Last Admin: 11/20/22 08:33 Dose: 10 mg Budesonide/Formoterol Fumarate (Symbicort 160-4.5 Mcg Inhaler) 2 puff INHALATION RT-BID [facility] Last Admin: 11/20/22 08:08 Dose: 2 puff Dextrose/Water (Dextrose 50% Syringe 50 Ml) 25 ml IVP PER PROTOCOL PRN; Protocol PRN Reason: Hypoglycemia Dextrose/Water (Dextrose 50% Syringe 50 Ml) 50 ml IVP PER PROTOCOL PRN; Protocol PRN Reason: Hypoglycemia Diltiazem HCl (Diltiazem Oral 30 Mg Tab) 30 mg PO TID [facility] Last Admin: 11/20/22 08:33 Dose: 30 mg Diphenhydramine HCl (Diphenhydramine 25 Mg Cap) 25 mg PO Q6H PRN PRN Reason: Itching Last Admin: 11/19/22 11:45 Dose: 25 mg Furosemide (Furosemide 40 Mg Tab) 40 mg PO DAILY [facility] Last Admin: 11/20/22 08:33 Dose: 40 mg Insulin Aspart (Insulin Aspart (Novolog) 100 Unit/Ml Vial) 0 unit SQ ACHS [facility]; Protocol Last Admin: 11/20/22 11:50 Dose: Not Given Melatonin (Melatonin 5 Mg Tablet) 5 mg PO HS [facility] Last Admin: 11/19/22 20:32 Dose: 5 mg Metoprolol Tartrate (Metoprolol Tartrate 25 Mg Tab) 75 mg PO BID [facility] Naloxone HCl (Naloxone 0.4 Mg/Ml 1 Ml Vial) 0.2 mg IV Q2M PRN PRN Reason: Opioid Reversal Nystatin (Nystatin 100,000unit/Gm Cream 30 Gm Tube) 1 applic TOPICAL TID [facility]; Protocol Last Admin: 11/20/22 08:34 Dose: Not Given Pantoprazole Sodium (Pantoprazole 40 Mg Tablet) 40 mg PO DAILY [facility] Last Admin: 11/20/22 08:33 Dose: 40 mg Potassium Chloride (Potassium Chloride Er 20 Meq Tab.Er) 20 meq PO DAILY [facility] Last Admin: 11/20/22 08:33 Dose: 20 meq Prednisone (Prednisone 10 Mg Tab) 30 mg PO DAILY [facility] Last Admin: 11/20/22 08:33 Dose: 30 mg On examination: VITAL SIGNS: Afebrile, 110, 20, 125/78, 94% on 2 L GENERAL APPEARANCE: BMI 53.9, in bed, slightly short of breath HEENT: Normal external appearance of nose and ear. Oral cavity normal EYES: Pupils equal. Conjunctiva normal. NECK: JVD not raised. Mass not palpable. RESPIRATORY: Respiratory effort increased. Lungs decreased breath sounds CARDIOVASCULAR: Heart sounds irregular No edema. ABDOMEN: Soft. Liver and spleen not palpable. No tenderness. No mass palpable. PSYCHIATRY: Alert and oriented x3. Mood and affect normal. INVESTIGATIONS, reviewed in the clinical context: White count 11.6 hemoglobin 12.5 platelets 378 potassium 4.4 creatinine 1.02 2-D echocardiogram: EF more than 70%. Moderate aortic valve sclerosis. Moderate to severe pulmonary hypertension. Assessment: -Acute Subsegmental pulmonary embolism: No right heart strain and 2-D echo. eliquis. -Acute hypoxic respiratory failure secondary to pulmonary embolism On 2 L nasal cannula -COPD, in a ex-smoker acute exacerbation. DuoNeb 4 times a day. Symbicort. Oral prednisone -Acute on chronic congestive heart failure, acute exacerbation with preserved EF: Better Lasix 40 mg by mouth daily -atrial fibrillation with rapid ventricular rate , uncontrolled Increase Lopressor 75 mg twice a day Cardizem 30 mg 3 times a day eliquis -Recent UTI which was treated as an outpatient with Bactrim continues to have burning sensation although urinalysis is negative for urinary tract infection patient will be started on Mycostatin powder for possible vaginal yeast infection and peritoneum -Essential Hypertension Lopressor, Cardizem -History of uterine cancer status post hysterectomy -Morbid obesity with a BMI of 53.9 Weight loss measures -Full code Lopressor increased. Other medications to continue.
[2022-11-20] MEDS: METOPROLOL TARTRATE 25 MG TAB PO SCH (20:04)
[2022-11-20] MEDS: MELATONIN 5 MG TABLET PO SCH (22:56)
[2022-11-20] MEDS: diphenhydrAMINE 25 MG CAP PO PRN (23:15)
[2022-11-21] MEDS: HYDROcodone/APAP 7.5-325MG 1 EACH TAB PO SCH ×3 (04:00→20:23)
[2022-11-21] MEDS: INSULIN ASPART (NovoLOG) 100 UNIT/ML VIAL SQ SCH ×4 (06:54→20:24)
[2022-11-21] MEDS: IPRATROPIUM-ALBUTEROL 3 ML NEB INHALATION SCH ×4 (08:22→20:55)
[2022-11-21] MEDS: SYMBICORT 160-4.5 MCG INHALER INHALATION SCH ×2 (08:22→20:55)
[2022-11-21] MEDS: APIXABAN 5 MG TAB PO SCH ×2 (08:34→20:23)
[2022-11-21] MEDS: FUROSEMIDE 40 MG TAB PO SCH (08:34)
[2022-11-21] MEDS: DILTIAZEM ORAL 30 MG TAB PO SCH ×3 (08:35→21:44)
[2022-11-21] MEDS: METOPROLOL TARTRATE 25 MG TAB PO SCH ×2 (08:35→20:23)
[2022-11-21] MEDS: predniSONE 10 MG TAB PO SCH (08:35)
[2022-11-21] MEDS: PANTOPRAZOLE 40 MG TABLET PO SCH (08:35)
[2022-11-21] MEDS: NYSTATIN 100,000UNIT/GM CREAM 30 GM TUBE TOPICAL SCH ×3 (08:35→22:51)
[2022-11-21] MEDS: POTASSIUM CHLORIDE ER 20 MEQ TAB.ER PO SCH (08:36)
--- NOTE | 2022-11-21 10:55 | XR ---
EXAMINATION TYPE: XR chest 1V DATE OF EXAM: 11/21/2022 HISTORY: Shortness of breath. COMPARISON: 11/18/2022 TECHNIQUE: Single view of the chest is submitted. FINDINGS: Demonstrated are scattered senescent parenchymal change. Increasing right basilar infiltrate. Correlate for pneumonia. The heart is stable. Hilar and mediastinal structures are within normal limits. Degenerative changes are seen of the dorsal spine. IMPRESSION: 1. Increasing right basilar infiltrate. Correlate for pneumonia.
[2022-11-21] MEDS: guaiFENesin-DM 600/30MG 1 EACH TAB.ER.12H PO SCH ×2 (11:20→20:24)
--- NOTE | 2022-11-21 11:59 | P.PN ---
Subjective Progress Note Date: 11/21/22 I am seeing this patient in new consultation today 11/17/2022 in the emergency room for right-sided pulmonary embolism. Patient is an 86-year-old white female with past medical history significant for COPD, CHF, hypertension, uterine cancer status post hysterectomy, morbid obesity, and is a remote ex-smoker. She has been seen by Dr. Lynch in the past for COPD. Patient's currently on a combination of Advair and albuterol inhalers. Patient has reportedly had a recent hospital stay at [facility] between October 26 and November 01 for CHF exacerbation. She has been quite sedentary. Early yesterday morning, the patient started to experience shortness of breath and right-sided chest pain, that awoke her from her sleep. She went to [facility], and underwent a chest CTA. Clinical impression reads that there is an acute pulmonary embolism in the segmental branches of the right middle and lower lobes with subsegmental extension. There was apparently no CT evidence of right ventricular heart strain. Images are not available at this time. Patient was also found to be in new onset atrial fibrillation. Patient was started on a high intensity heparin infusion, and transferred to [facility]. Patient is currently sitting up in bed, on 3 L nasal cannula, in no acute distress. Chest x-ray shows no acute cardiopulmonary process. Patient denies any previous history of DVTs or PEs, recent travel, trauma. She does report that her daughter has history of DVT. Labs this morning are pending. Troponin levels were reportedly elevated at outside facility. Lungs are bronchospastic on auscultation. Patient is on a combination of albuterol and Symbicort inhalers. Heart rhythm is currently atrial fibrillation with rapid ventricular rate ranging from 100 to 120 bpm. Otherwise, the patient is hemodynamicly stable. On today's evaluation of 11/18/2022, the patient is grieving loss of her . The patient otherwise is stable. She remains atrial fibrillation. She was started on a Cardizem drip which is running at 5 mg an hour. She was taken off the IV heparin and she was started on anticoagulation with Eliquis. Echocardiogram was done and the results are still pending for now. On today's evaluation, she was noted to be increasingly bronchospastic and wheezy. She was started on Lasix 40 mg IV every 12 hours. She'll be also started on low-dose IV Solu-Medrol 40 mg every 6 hours. She is on DuoNeb updrafts [id number]. She is on metoprolol 50 mg twice a day and a Cardizem drip will be gradually weaned off and discontinued. No chest pain. No significant shortness of breath at this point in time. On 11/19/2022, the patient is feeling well. Less short of breath and bronchospastic compared to yesterday. Remains in atrial fibrillation. She is taking anticoagulations and the patient is currently on Eliquis 10 mg by mouth twice a day. No chest pain. No angina. No palpitations. Echo of the heart was noted from yesterday the patient has preserved LV function. Ejection fraction is order of 70% and the patient is hyperdynamic. The patient has LVH. The patient has mild aortic stenosis and moderate degree of pulmonary hyper tension and estimated pulmonary artery pressure was around 61. This could be related to chronic pulmonary hypertension as the patient has obvious features of obstructive sleep apnea and COPD. This pulmonary embolism is unlikely to be accounting for the pulmonary hypertension. I suspect this is a chronic problem. WBC count is 11.6 with a hemoglobin 12.5 and a platelet count of 378. Sodium is at 1:30 and the BUN is at 28 with a creatinine of 1.08. On 11/20/2022, the patient doing well. She is resting comfortably in bed. She is on 2 L of oxygen by nasal cannula. She remains atrial fibrillation. Rate is controlled. She is also on anticoagulants. She is on Eliquis 10 mg by mouth twice a day. Echo was noted. No major edema lower extremities. The patient has no Daniel. bronchospasm and wheezing. She was started on a prednisone burst taper starting with 30 mg as of yesterday. She is also on Symbicort and DuoNeb nebulized treatments [id number]. Ambulating. Tolerating diet. No nausea or emesis. No other complaints otherwise. Remains on metoprolol 75 mg by mouth twice a day and those being adjusted by cardiology. On 12/18/2022, the patient is having some increased cough and congestion and the patient is producing mucus. Sputum cultures have been sent and the patient will be having another chest x-ray. Note that she doesn't have any fever or chills. Repeat chest x-ray shows a infiltration of the right lower lobe and as such pneumonia is to be considered. Noted the patient is still in atrial fibrillation. Rate is controlled. She was started also on anticoagulation regarding that atrial fibrillation and new pulmonary embolism. No recent labs from today. Blood sugars at 183. Is on metoprolol 75 mg twice a day. Objective - Vital Signs Vital signs: Vital Signs Temp 97.2 F L 11/20/22 20:09 Pulse 107 H 11/21/22 08:22 Resp 16 11/21/22 08:00 BP 133/80 11/21/22 08:00 Pulse Ox 94 L 11/21/22 08:24 FiO2 Intake & Output 11/20/22 11/21/22 11/21/22 18:59 06:59 18:59 Intake Total 1560 240 Balance 1560 240 Weight 117.5 kg 121.5 kg Intake: Oral 1560 240 Other: Voiding Method External Catheter External Catheter # Voids 1 # Bowel Movements 1 - Exam GENERAL EXAM: Alert, 86-year-old morbidly obese female , comfortable in no apparent distress. The patient is currently on 3 L of oxygen by nasal cannula. HEAD: Normocephalic and atraumatic EYES: Normal reaction of pupils, equal size. NOSE: Clear with pink turbinates. THROAT: No erythema or exudates. NECK: No masses, no JVD. CHEST: No chest wall deformity. LUNGS: Equal air entry with expiratory wheezes throughout. no crackles, rhonchi or dullness. Diminished breath sounds otherwise clear on today's evaluation CVS: S1 and S2 normal with no audible murmur, irregular rhythm. No extra heart sounds. ABDOMEN: Obese abdomen, No hepatosplenomegaly, active bowel sounds, no guarding or rigidity. SPINE: No scoliosis or deformity SKIN: No rashes CENTRAL NERVOUS SYSTEM: No focal deficits, tone is normal in all 4 extremities. EXTREMITIES: There is moderate nonpitting bilateral lower extremity peripheral edema. No clubbing, or cyanosis. Peripheral pulses are intact. - Labs CBC & Chem 7: 11/19/22 09:12 11/19/22 09:12 Assessment and Plan Assessment: Acute pulmonary embolism in the segmental branches of the right middle and lower lobes with subsegmental extension. There was apparently no CT evidence of right ventricular heart strain. Images are not available at this time. Currently anticoagulated on high intensity heparin infusion. Acute hypoxic respiratory failure secondary to above, currently on 3 L nasal cannula New-onset atrial fibrillation with rapid ventricular response Chronic obstructive pulmonary disease Recent urinary tract infection treated on outpatient basis with Bactrim, patient still experiencing symptoms of dysuria and frequency Essential hypertension History of uterine cancer status post hysterectomy Morbid obesity, with a BMI of 49 Ex-smoker, remote Plan: Patient's medications, labs, chest x-ray reviewed Chest CTA records were reviewed Continue high-intensity heparin infusion, and patient will be transitioned to a direct oral anticoagulant before discharge Echocardiogram is pending Venous Doppler of bilateral lower extremities pending Consult cardiology Start the patient on a combination of Symbicort inhaler and DuoNeb's Continue supplemental oxygen Repeat labs this morning Urinalysis reflex to culture We will continue to follow I have personally seen and examined the patient, performed the documentation and the assessment and plan as written. Number of minutes spent on the visit:20 There is a joint evaluation that was done along with the nurse practitioner. Floors is very well-known to me. She is a 86-year-old female patient, who was hospital approximately a week ago for decompensated heart failure. Subsequently she became short of breath and she started having chest pain or shortness of breath. She was found to be new onset atrial fibrillation and furthermore, CT angiogram that was done at the other hospital showed evidence of pulmonary embolism. The patient is currently on IV heparin. Her cardiac rhythm is still in atrial fibrillation. Still nature for the patient however remains hemodynamically stable. She is currently on oxygen at 3 L nasal cannula. Ec hocardiogram is pending. Doppler of the lower extremities are negative. Evaluation was done > 30 min Plan: Acute pulmonary embolism in the segmental branches of the right middle and lower lobes with subsegmental extension. There was apparently no CT evidence of right ventricular heart strain. Images are not available at this time. The patient was taken off the IV heparin and the patient was started on anticoagulation with Eliquis. Echocardiogram showed pulmonary hypertension which probably is a chronic problem and the patient is chronic hypoxemia, features RAFAEL and COPD. Patient is doing well on anticoagulation with Eliquis 10 mg by mouth twice a day, clinically stable New-onset cough and right lower lobe pulmonary infiltrate, consider possibility of a involving pneumonia Acute hypoxic respiratory failure secondary to above, currently on 2 L nasal ca nnula New-onset atrial fibrillation with rapid ventricular response , the patient anticoagulation, the patient is on metoprolol 75 mg twice a day and the patient is on anticoagulants, rate is controlled for now Chronic obstructive pulmonary disease, the patient is demonstrating treating bronchospasm and wheezing, improved with steroids and bronchodilators Recent urinary tract infection treated on outpatient basis with Bactrim, patient still experiencing symptoms of dysuria and frequency Essential hypertension History of uterine cancer status post hysterectomy Morbid obesity, with a BMI of 49 Ex-smoker, remote Plan Continue anticoagulation with Eliquis 10 mg by mouth twice a day Continue prednisone burst taper Continue Lasix 40 mg by mouth daily Start The patient on IV Rocephin 1 g every 24 hours Sputum Gram stain culture Add Mucinex DM Continue DuoNeb nebulized treatments [id number] 4 times a day Echocardiogram results were noted We'll continue to follow cardiology is on the case regarding the new onset atrial fibrillation. The patient's metoprolol dose has been modified to 75 mg by mouth twice a day. Shortness of breath is improving and there is no chest pain We'll continue to follow
--- NOTE | 2022-11-21 15:19 | P.PN ---
Progress Note - Text Progress Note Date: 11/21/[address] Dorman, is transferred from outside hospital for a pulmonary embolism patient presented with chest pain found to have subsegmental PE bilaterally. Patient was also having shortness of breath. CT was read as evidence of right ventricular strain, echo be pending troponin is negative. Patient is mildly hyponatremic is on Bactrim for UTI patient continues to complain of burning sensation patient is presently in atrial fibrillation with rapid ventricular rate. Cardiology and pulmonology evaluated the patient 11/18/2022 Patient is seen and evaluated and follow-up and currently has been transitioned to oral eliquis. Patient being followed by cardiology along with pulmonary m aintained on Cardizem although metoprolol being adjusted and increased and working on weaning Cardizem drip. Patient continues on 3 L via nasal cannula and does not normally wear oxygen outpatient also noted to have some wheezing and is receiving DuoNeb treatments along with now being started on low-dose steroids. Will add sliding scale and monitor Accu-Cheks before meals and at bedtime his blood sugars were mildly elevated. Patient denies having any burning or frequency with urination at this time. Patient is receiving IV Lasix and sodium level continues to be 130 and potassium level borderline. We'll continue lower dose IV Lasix as patient is having an acute on chronic CHF exacerbation as well. Patient was just notified that her in the emergency department in respiratory distress. Daughter is at the bedside. Patient with weakness would recommend PT/OT therapy evaluation. Recommend follow-up labs in the a.m. Chest x-ray ordered and pending. November 19: I assumed care of the patient today. Breathing is better. Feels a bit better. He was in atrial fibrillation. On eliquis. Patient's pulmonary hypertension is felt to be more chronic. The symptoms suggested RAFAEL/COPD. November 20: Remains in A. fib. Heart rate just above 100. Had a good breakfast. Tired this morning is could not sleep last night. Lopressor increased to 75 mg twice a day. We'll increase Cardizem to 30 mg 4 times a day November 3: Sitting up in a recliner. Some shortness of breath. Remains in A. fib heart rate in 1 teens. Active Medications Acetaminophen (Acetaminophen Tab 325 Mg Tab) 650 mg PO Q6HR PRN PRN Reason: Mild Pain or Fever > 100.5 Hydrocodone Bitart/Acetaminophen (Hydrocodone/Apap 5-325mg 1 Each Tab) 1 each PO Q4HR PRN PRN Reason: Moderate Pain (Scale 4 to 6) Last Admin: 11/20/22 02:18 Dose: 1 each Hydrocodone Bitart/Acetaminophen (Hydrocodone/Apap 7.5-325mg 1 Each Tab) 1 each PO Q8H [facility] Last Admin: 11/21/22 13:44 Dose: 1 each Albuterol/Ipratropium (Ipratropium-Albuterol 3 Ml Neb) 3 ml INHALATION RT-QID [facility] Last Admin: 11/21/22 11:43 Dose: 3 ml Albuterol/Ipratropium (Ipratropium-Albuterol 3 Ml Neb) 3 ml INHALATION RT-Q2H PRN PRN Reason: Shortness Of Breath Or Wheezing Last Admin: 11/17/22 05:00 Dose: 3 ml Apixaban (Apixaban 5 Mg Tab) 10 mg PO BID [facility]; Taper Stop: 12/17/22 08:59 Last Admin: 11/21/22 08:34 Dose: 10 mg Budesonide/Formoterol Fumarate (Symbicort 160-4.5 Mcg Inhaler) 2 puff INHALATION RT-BID [facility] Last Admin: 11/21/22 08:22 Dose: 2 puff Dextrose/Water (Dextrose 50% Syringe 50 Ml) 25 ml IVP PER PROTOCOL PRN; Protocol PRN Reason: Hypoglycemia Dextrose/Water (Dextrose 50% Syringe 50 Ml) 50 ml IVP PER PROTOCOL PRN; Protocol PRN Reason: Hypoglycemia Diphenhydramine HCl (Diphenhydramine 25 Mg Cap) 25 mg PO Q6H PRN PRN Reason: Itching Last Admin: 11/20/22 23:15 Dose: 25 mg Furosemide (Furosemide 40 Mg Tab) 40 mg PO DAILY [facility] Last Admin: 11/21/22 08:34 Dose: 40 mg Guaifenesin/Dextromethorphan (Guaifenesin-Dm 600/30mg 1 Each Tab.Er.12h) 2 each PO Q12HR [facility] Last Admin: 11/21/22 11:20 Dose: 2 each Ceftriaxone Sodium 1 gm/ (Sodium Chloride) 50 mls @ 100 mls/hr IVPB Q24HR [facility]; Protocol Last Admin: 11/21/22 13:45 Dose: 100 mls/hr Insulin Aspart (Insulin Aspart (Novolog) 100 Unit/Ml Vial) 0 unit SQ ACHS [facility]; Protocol Last Admin: 11/21/22 11:43 Dose: Not Given Melatonin (Melatonin 5 Mg Tablet) 5 mg PO HS [facility] Last Admin: 11/20/22 22:56 Dose: 5 mg Metoprolol Tartrate (Metoprolol Tartrate 25 Mg Tab) 75 mg PO BID [facility] Last Admin: 11/21/22 08:35 Dose: 75 mg Naloxone HCl (Naloxone 0.4 Mg/Ml 1 Ml Vial) 0.2 mg IV Q2M PRN PRN Reason: Opioid Reversal Nystatin (Nystatin 100,000unit/Gm Cream 30 Gm Tube) 1 applic TOPICAL TID [facility]; Protocol Last Admin: 11/21/22 08:35 Dose: 1 applic Pantoprazole Sodium (Pantoprazole 40 Mg Tablet) 40 mg PO DAILY [facility] Last Admin: 11/21/22 08:35 Dose: 40 mg Potassium Chloride (Potassium Chloride Er 20 Meq Tab.Er) 20 meq PO DAILY [facility] Last Admin: 11/21/22 08:36 Dose: 20 meq Prednisone (Prednisone 10 Mg Tab) 30 mg PO DAILY [facility] Last Admin: 11/21/22 08:35 Dose: 30 mg On examination: VITAL SIGNS: Afebrile, 107, 16, 133/80, 100% on 2 L GENERAL APPEARANCE: In recliner, slightly short of breath HEENT: Normal external appearance of nose and ear. Oral cavity normal EYES: Pupils equal. Conjunctiva normal. NECK: JVD not raised. Mass not palpable. RESPIRATORY: Respiratory effort increased. Lungs decreased breath sounds CARDIOVASCULAR: Heart sounds irregular No edema. ABDOMEN: Soft. Liver and spleen not palpable. No tenderness. No mass palpable. PSYCHIATRY: Alert and oriented x3. Mood and affect normal. INVESTIGATIONS, reviewed in the clinical context: White count 11.6 hemoglobin 12.5 platelets 378 potassium 4.4 creatinine 1.02 2-D echocardiogram: EF more than 70%. Moderate aortic valve sclerosis. Moderate to severe pulmonary hypertension. Assessment: -Acute Subsegmental pulmonary embolism: No right heart strain and 2-D echo. eliquis. -Acute hypoxic respiratory failure secondary to pulmonary embolism On 2 L nasal cannula -COPD, in a ex-smoker acute exacerbation. DuoNeb 4 times a day. Symbicort. Oral prednisone -Acute on chronic congestive heart failure, acute exacerbation with preserved EF: Better Lasix 40 mg by mouth daily -atrial fibrillation with rapid ventricular rate , uncontrolled Increase Lopressor 75 mg twice a day. Increase Cardizem 30 mg 4 times a day. eliquis -Recent UTI which was treated as an outpatient with Bactrim continues to have burning sensation although urinalysis is negative for urinary tract infection patient will be started on Mycostatin powder for possible vaginal yeast infection and peritoneum -Essential Hypertension Lopressor, Cardizem -History of uterine cancer status post hysterectomy -Morbid obesity with a BMI of 53.9 Weight loss measures -Full code Increase Cardizem to 30 mg 4 times a day. Other medications to continue. Discussed
--- NOTE | 2022-11-21 16:44 | P.PN ---
Subjective Progress Note Date: 11/21/22 This is a 86-year-old female with a past medical history significant for COPD, congestive heart failure, hypertension, and GERD. Patient follows in the office with Dr. Medellni but has not been seen in the office since April 2021. We have been asked to see the patient in consultation for new onset atrial fibrillation. Patient examined at the bedside in the emergency room. Patient presented [facility] with a chief complaint of chest pain and shortness of breath. Patient was transferred to [facility] for further evaluation. She states that she was having chest pain in the middle of her chest and into her shoulder and behind her left ear. She also reports feeling short of breath for the past few days. She states her shortness of breath is worse with deep inspiration. She reports lower extremity edema which is not new. Patient underwent a CTA revealing acute pulmonary embolism in the segmental branches of the right middle and lower lobe with subsegmental extension. No evidence of right heart strain. The patient was started on IV heparin. The patient was also found to be in A. fib with RVR. The patient denies a history of atrial fibrillation. She does report feeling palpitations and dizzy at times. A cardiogram done this admission showed ejection fraction of 70% with moderate to severe pulmonary hypertension and mild aortic stenosis. 11/21/2022 Patient was seen and examined resting in bed. She is overall feeling a bit better. Chest x-ray shows evidence of pneumonia. Blood pressure has been stable. Heart rate is reasonably well controlled. Objective - Vital Signs Vital signs: Vital Signs Temp 97.2 F L 11/20/22 20:09 Pulse 103 H 11/21/22 16:16 Resp 20 11/21/22 11:27 BP 142/79 11/21/22 11:27 Pulse Ox 94 L 11/21/22 11:27 FiO2 Intake & Output 11/20/22 11/21/22 11/21/22 18:59 06:59 18:59 Intake Total 1560 240 Output Total 900 Balance 1560 240 -900 Weight 117.5 kg 121.5 kg Intake: Oral 1560 240 Output: Urine 900 Other: Voiding Method External Catheter External Catheter External Catheter # Voids 1 # Bowel Movements 1 1 - Exam VITAL SIGNS: Reviewed. GENERAL: Well-developed in no acute distress. HEENT: Head is normocephalic. Pupils are equal, round. Sclerae anicteric. Mucous membranes of the mouth are moist. Neck supple. No JVD or thyromegaly LUNGS: Respirations even and unlabored. Lungs diminished bilaterally. HEART: Tachycardic. Irregular rate and rhythm. S1 and S2 heard. ABDOMEN: Soft. Nondistended. Nontender. EXTREMITIES: Normal range of motion. No clubbing or cyanosis. Peripheral pulses intact. 1+ bilateral lower extremity edema NEUROLOGIC: Awake and alert. Oriented x 3. - Labs CBC & Chem 7: 11/19/22 09:12 11/19/22 09:12 Assessment and Plan Assessment: Shortness of breath Acute right-sided pulmonary embolism Acute on chronic heart failure with preserved ejection fraction New-onset atrial fibrillation with RVR Acute COPD exacerbation Hypertension GERD Morbid obesity: BMI 49.1 Plan: From cardiology's perspective medications were reviewed and we will continue the same. Continue to monitor the patient on telemetry. We will continue to follow the patient and provide further recommendations accordingly. [employer] PROFESSIONAL note has been reviewed, I agree with a documented findings and plan of care. Patient was seen and examined.
[2022-11-21 20:05] LABS: Glucose,Whole Blood 238 mg/dL (70-110)
[2022-11-21] MEDS: MELATONIN 5 MG TABLET PO SCH (22:48)
[2022-11-22] MEDS: HYDROcodone/APAP 7.5-325MG 1 EACH TAB PO SCH ×3 (04:05→20:22)
[2022-11-22 05:47] LABS: Glucose,Whole Blood 128 mg/dL (70-110)
[2022-11-22] MEDS: INSULIN ASPART (NovoLOG) 100 UNIT/ML VIAL SQ SCH ×4 (06:51→20:22)
[2022-11-22] MEDS: SYMBICORT 160-4.5 MCG INHALER INHALATION SCH ×2 (07:46→20:23)
[2022-11-22] MEDS: IPRATROPIUM-ALBUTEROL 3 ML NEB INHALATION SCH ×4 (07:46→20:23)
[2022-11-22] MEDS: APIXABAN 5 MG TAB PO SCH ×2 (08:37→20:22)
[2022-11-22] MEDS: predniSONE 10 MG TAB PO SCH (08:37)
[2022-11-22] MEDS: guaiFENesin-DM 600/30MG 1 EACH TAB.ER.12H PO SCH ×2 (08:37→20:21)
[2022-11-22] MEDS: METOPROLOL TARTRATE 25 MG TAB PO SCH (08:37)
[2022-11-22] MEDS: DILTIAZEM ORAL 30 MG TAB PO SCH ×3 (08:38→20:22)
[2022-11-22] MEDS: FUROSEMIDE 40 MG TAB PO SCH (08:38)
[2022-11-22] MEDS: PANTOPRAZOLE 40 MG TABLET PO SCH (08:38)
[2022-11-22] MEDS: NYSTATIN 100,000UNIT/GM CREAM 30 GM TUBE TOPICAL SCH ×3 (08:40→20:23)
[2022-11-22] MEDS: POTASSIUM CHLORIDE ER 20 MEQ TAB.ER PO SCH (08:40)
[2022-11-22 11:33] LABS: Basophils # (A) 0.1 k/uL (0-0.2); Basophils % (A) 0 %; Eosinophils # (A) 0.2 k/uL (0-0.7); Eosinophils % (A) 2 %; HCT 41.7 % (34.0-46.0); HGB 13.1 gm/dL (11.4-16.0); Lymphocytes # (A) 2.1 k/uL (1.0-4.8); Lymphocytes % (A) 20 %; MCH 29.2 pg (25.0-35.0); MCHC 31.4 g/dL (31.0-37.0); MCV 93.2 fL (80.0-100.0); Mean Platelet Volume 7.3; Monocytes # (A) 0.6 k/uL (0-1.0); Monocytes % (A) 6 %; Neutrophils # (A) 7.4 k/uL (1.3-7.7); Neutrophils % (A) 70 %; Platelet Count 467 k/uL (150-450); RBC 4.47 m/uL (3.80-5.40); WBC 10.6 k/uL (3.8-10.6)
[2022-11-22 11:40] LABS: Glucose,Whole Blood 195 mg/dL (70-110)
[2022-11-22] MEDS: ONDANSETRON 4 MG/2 ML VIAL IVP PRN (11:51)
[2022-11-22 11:56] LABS: ALT 59 U/L (4-34); AST 45 U/L (14-36); African American GFR (CKD) 70 (>60 ml/min/1.73 sqM); Albumin 3.5 g/dL (3.5-5.0); Alkaline Phosphatase 129 U/L (38-126); Anion Gap 6 mmol/L; Blood Urea Nitrogen 33 mg/dL (7-17); Carbon Dioxide 35 mmol/L (22-30); Chloride 91 mmol/L (98-107); Glucose 136 mg/dL (74-99); Non-African American GFR(CKD) 61 (>60 ml/min/1.73 sqM); Potassium 4.9 mmol/L (3.5-5.1); Sodium 132 mmol/L (137-145); Total Bilirubin 0.5 mg/dL (0.2-1.3); Total Protein 6.5 g/dL (6.3-8.2)
--- NOTE | 2022-11-22 12:01 | P.PN ---
Subjective Progress Note Date: 11/22/22 I am seeing this patient in new consultation today 11/17/2022 in the emergency room for right-sided pulmonary embolism. Patient is an 86-year-old white female with past medical history significant for COPD, CHF, hypertension, uterine cancer status post hysterectomy, morbid obesity, and is a remote ex-smoker. She has been seen by Dr. Lynch in the past for COPD. Patient's currently on a combination of Advair and albuterol inhalers. Patient has reportedly had a recent hospital stay at [facility] between October 26 and November 01 for CHF exacerbation. She has been quite sedentary. Early yesterday morning, the patient started to experience shortness of breath and right-sided chest pain, that awoke her from her sleep. She went to [facility], and underwent a chest CTA. Clinical impression reads that there is an acute pulmonary embolism in the segmental branches of the right middle and lower lobes with subsegmental extension. There was apparently no CT evidence of right ventricular heart strain. Images are not available at this time. Patient was also found to be in new onset atrial fibrillation. Patient was started on a high intensity heparin infusion, and transferred to [facility]. Patient is currently sitting up in bed, on 3 L nasal cannula, in no acute distress. Chest x-ray shows no acute cardiopulmonary process. Patient denies any previous history of DVTs or PEs, recent travel, trauma. She does report that her daughter has history of DVT. Labs this morning are pending. Troponin levels were reportedly elevated at outside facility. Lungs are bronchospastic on auscultation. Patient is on a combination of albuterol and Symbicort inhalers. Heart rhythm is currently atrial fibrillation with rapid ventricular rate ranging from 100 to 120 bpm. Otherwise, the patient is hemodynamicly stable. On today's evaluation of 11/18/2022, the patient is grieving loss of her . The patient otherwise is stable. She remains atrial fibrillation. She was started on a Cardizem drip which is running at 5 mg an hour. She was taken off the IV heparin and she was started on anticoagulation with Eliquis. Echocardiogram was done and the results are still pending for now. On today's evaluation, she was noted to be increasingly bronchospastic and wheezy. She was started on Lasix 40 mg IV every 12 hours. She'll be also started on low-dose IV Solu-Medrol 40 mg every 6 hours. She is on DuoNeb updrafts [id number]. She is on metoprolol 50 mg twice a day and a Cardizem drip will be gradually weaned off and discontinued. No chest pain. No significant shortness of breath at this point in time. On 11/19/2022, the patient is feeling well. Less short of breath and bronchospastic compared to yesterday. Remains in atrial fibrillation. She is taking anticoagulations and the patient is currently on Eliquis 10 mg by mouth twice a day. No chest pain. No angina. No palpitations. Echo of the heart was noted from yesterday the patient has preserved LV function. Ejection fraction is order of 70% and the patient is hyperdynamic. The patient has LVH. The patient has mild aortic stenosis and moderate degree of pulmonary hyper tension and estimated pulmonary artery pressure was around 61. This could be related to chronic pulmonary hypertension as the patient has obvious features of obstructive sleep apnea and COPD. This pulmonary embolism is unlikely to be accounting for the pulmonary hypertension. I suspect this is a chronic problem. WBC count is 11.6 with a hemoglobin 12.5 and a platelet count of 378. Sodium is at 1:30 and the BUN is at 28 with a creatinine of 1.08. On 11/20/2022, the patient doing well. She is resting comfortably in bed. She is on 2 L of oxygen by nasal cannula. She remains atrial fibrillation. Rate is controlled. She is also on anticoagulants. She is on Eliquis 10 mg by mouth twice a day. Echo was noted. No major edema lower extremities. The patient has no Daniel. bronchospasm and wheezing. She was started on a prednisone burst taper starting with 30 mg as of yesterday. She is also on Symbicort and DuoNeb nebulized treatments [id number]. Ambulating. Tolerating diet. No nausea or emesis. No other complaints otherwise. Remains on metoprolol 75 mg by mouth twice a day and those being adjusted by cardiology. On 12/18/2022, the patient is having some increased cough and congestion and the patient is producing mucus. Sputum cultures have been sent and the patient will be having another chest x-ray. Note that she doesn't have any fever or chills. Repeat chest x-ray shows a infiltration of the right lower lobe and as such pneumonia is to be considered. Noted the patient is still in atrial fibrillation. Rate is controlled. She was started also on anticoagulation regarding that atrial fibrillation and new pulmonary embolism. No recent labs from today. Blood sugars at 183. Is on metoprolol 75 mg twice a day. On 11/22/2022, the patient still having some congested cough. Sputum was sent for cultures. Patient is currently on IV Rocephin. She has developed a right lower lobe pulmonary infiltrate. She remains on anticoagulation. She remains atrial fibrillation. She is on 2 L of oxygen by nasal cannula. No interval worsening shortness of breath. The white cycles of 10.6 with a hemoglobin 13.1 and a platelet count of 467, BUN is 33 with a creatinine of 0.8 and sodium levels of 132. Objective - Vital Signs Vital signs: Vital Signs Temp 98 F 11/22/22 08:00 Pulse 94 11/22/22 08:01 Resp 18 11/22/22 08:00 BP 124/71 11/22/22 08:00 Pulse Ox 97 11/22/22 08:00 FiO2 Intake & Output 11/21/22 11/22/22 11/22/22 18:59 06:59 18:59 Intake Total 240 180 Output Total 900 Balance -660 180 Weight 104 kg Intake: Oral 240 180 Output: Urine 900 Other: Voiding Method External Catheter External Catheter # Bowel Movements 1 - Exam GENERAL EXAM: Alert, 86-year-old morbidly obese female , comfortable in no apparent distress. The patient is currently on 3 L of oxygen by nasal cannula. HEAD: Normocephalic and atraumatic EYES: Normal reaction of pupils, equal size. NOSE: Clear with pink turbinates. THROAT: No erythema or exudates. NECK: No masses, no JVD. CHEST: No chest wall deformity. LUNGS: Equal air entry with expiratory wheezes throughout. no crackles, rhonchi or dullness. Diminished breath sounds otherwise clear on today's evaluation CVS: S1 and S2 normal with no audible murmur, irregular rhythm. No extra heart sounds. ABDOMEN: Obese abdomen, No hepatosplenomegaly, active bowel sounds, no guarding or rigidity. SPINE: No scoliosis or deformity SKIN: No rashes CENTRAL NERVOUS SYSTEM: No focal deficits, tone is normal in all 4 extremities. EXTREMITIES: There is moderate nonpitting bilateral lower extremity peripheral edema. No clubbing, or cyanosis. Peripheral pulses are intact. - Labs CBC & Chem 7: 11/22/22 10:59 11/22/22 10:59 Labs: Abnormal Lab Results - Last 24 Hours (Table) 11/21/22 11/22/22 Range/Units 20:03 05:45 POC Glucose (mg/dL) 238 H 128 H (70-110) mg/dL Assessment and Plan Plan: Acute pulmonary embolism in the segmental branches of the right middle and lower lobes with subsegmental extension. There was apparently no CT evidence of right ventricular heart strain. Images are not available at this time. The patient was taken off the IV heparin and the patient was started on anticoagulation with Eliquis. Echocardiogram showed pulmonary hypertension which probably is a chronic problem and the patient is chronic hypoxemia, features RAFAEL and COPD. Patient is doing well on anticoagulation with Eliquis 10 mg by mouth twice a day, clinically stable New-onset cough and right lower lobe pulmonary infiltrate, consider possibility of a involving pneumonia involving the right lower lobe and the patient is currently on IV Rocephin Acute hypoxic respiratory failure secondary to above, currently on 2 L nasal cannula New-onset atrial fibrillation with rapid ventricular response , the patient anticoagulation, the patient is on metoprolol 75 mg twice a day and the patient is on anticoagulants, rate is controlled for now Chronic obstructive pulmonary disease, the patient is demonstrating treating bronchospasm and wheezing, improved with steroids and bronchodilators Recent urinary tract infection treated on outpatient basis with Bactrim, patient still experiencing symptoms of dysuria and frequency Essential hypertension History of uterine cancer status post hysterectomy Morbid obesity, with a BMI of 49 Ex-smoker, remote Plan Continue IV Rocephin Repeat chest x-ray the morning Awaiting sputum Gram stain and culture Continue anticoagulation with Eliquis 10 mg by mouth twice a day Continue prednisone burst taper Continue Lasix 40 mg by mouth daily Continue Mucinex DM Continue DuoNeb nebulized treatments [id number] 4 times a day Echocardiogram results were noted We'll continue to follow cardiology is on the case regarding the new onset atrial fibrillation. The patient's metoprolol dose has been modified to 75 mg by mouth twice a day. Shortness of breath is improving and there is no chest pain We'll continue to follow
--- NOTE | 2022-11-22 14:27 | P.PN ---
Progress Note - Text Progress Note Date: 11/22/[address] Dorman, is transferred from outside hospital for a pulmonary embolism patient presented with chest pain found to have subsegmental PE bilaterally. Patient was also having shortness of breath. CT was read as evidence of right ventricular strain, echo be pending troponin is negative. Patient is mildly hyponatremic is on Bactrim for UTI patient continues to complain of burning sensation patient is presently in atrial fibrillation with rapid ventricular rate. Cardiology and pulmonology evaluated the patient 11/18/2022 Patient is seen and evaluated and follow-up and currently has been transitioned to oral eliquis. Patient being followed by cardiology along with pulmonary m aintained on Cardizem although metoprolol being adjusted and increased and working on weaning Cardizem drip. Patient continues on 3 L via nasal cannula and does not normally wear oxygen outpatient also noted to have some wheezing and is receiving DuoNeb treatments along with now being started on low-dose steroids. Will add sliding scale and monitor Accu-Cheks before meals and at bedtime his blood sugars were mildly elevated. Patient denies having any burning or frequency with urination at this time. Patient is receiving IV Lasix and sodium level continues to be 130 and potassium level borderline. We'll continue lower dose IV Lasix as patient is having an acute on chronic CHF exacerbation as well. Patient was just notified that her in the emergency department in respiratory distress. Daughter is at the bedside. Patient with weakness would recommend PT/OT therapy evaluation. Recommend follow-up labs in the a.m. Chest x-ray ordered and pending. November 19: I assumed care of the patient today. Breathing is better. Feels a bit better. He was in atrial fibrillation. On eliquis. Patient's pulmonary hypertension is felt to be more chronic. The symptoms suggested RAFAEL/COPD. November 20: Remains in A. fib. Heart rate just above 100. Had a good breakfast. Tired this morning is could not sleep last night. Lopressor increased to 75 mg twice a day. We'll increase Cardizem to 30 mg 4 times a day November 3: Sitting up in a recliner. Some shortness of breath. Remains in A. fib heart rate in 1 teens. November 22: Patient has been around the room. Breathing better. A. fib. Remains just above 100. We will increase Lopressor 200 mg twice a day. Active Medications Acetaminophen (Acetaminophen Tab 325 Mg Tab) 650 mg PO Q6HR PRN PRN Reason: Mild Pain or Fever > 100.5 Hydrocodone Bitart/Acetaminophen (Hydrocodone/Apap 5-325mg 1 Each Tab) 1 each PO Q4HR PRN PRN Reason: Moderate Pain (Scale 4 to 6) Last Admin: 11/20/22 02:18 Dose: 1 each Hydrocodone Bitart/Acetaminophen (Hydrocodone/Apap 7.5-325mg 1 Each Tab) 1 each PO Q8H [facility] Last Admin: 11/22/22 11:52 Dose: 1 each Albuterol/Ipratropium (Ipratropium-Albuterol 3 Ml Neb) 3 ml INHALATION RT-QID [facility] Last Admin: 11/22/22 11:58 Dose: 3 ml Albuterol/Ipratropium (Ipratropium-Albuterol 3 Ml Neb) 3 ml INHALATION RT-Q2H PRN PRN Reason: Shortness Of Breath Or Wheezing Last Admin: 11/17/22 05:00 Dose: 3 ml Apixaban (Apixaban 5 Mg Tab) 10 mg PO BID [facility]; Taper Stop: 12/17/22 08:59 Last Admin: 11/22/22 08:37 Dose: 10 mg Budesonide/Formoterol Fumarate (Symbicort 160-4.5 Mcg Inhaler) 2 puff INHALATION RT-BID [facility] Last Admin: 11/22/22 07:46 Dose: 2 puff Dextrose/Water (Dextrose 50% Syringe 50 Ml) 25 ml IVP PER PROTOCOL PRN; Protocol PRN Reason: Hypoglycemia Dextrose/Water (Dextrose 50% Syringe 50 Ml) 50 ml IVP PER PROTOCOL PRN; Protocol PRN Reason: Hypoglycemia Diltiazem HCl (Diltiazem Oral 30 Mg Tab) 30 mg PO QID [facility] Last Admin: 11/22/22 08:38 Dose: 30 mg Diphenhydramine HCl (Diphenhydramine 25 Mg Cap) 25 mg PO Q6H PRN PRN Reason: Itching Last Admin: 11/20/22 23:15 Dose: 25 mg Furosemide (Furosemide 40 Mg Tab) 40 mg PO DAILY [facility] Last Admin: 11/22/22 08:38 Dose: 40 mg Guaifenesin/Dextromethorphan (Guaifenesin-Dm 600/30mg 1 Each Tab.Er.12h) 2 each PO Q12HR [facility] Last Admin: 11/22/22 08:37 Dose: 2 each Ceftriaxone Sodium 1 gm/ (Sodium Chloride) 50 mls @ 100 mls/hr IVPB Q24HR [facility]; Protocol Last Admin: 11/22/22 08:31 Dose: 100 mls/hr Insulin Aspart (Insulin Aspart (Novolog) 100 Unit/Ml Vial) 0 unit SQ ACHS [facility]; Protocol Last Admin: 11/22/22 11:51 Dose: 2 unit Melatonin (Melatonin 5 Mg Tablet) 5 mg PO HS [facility] Last Admin: 11/21/22 22:48 Dose: 5 mg Naloxone HCl (Naloxone 0.4 Mg/Ml 1 Ml Vial) 0.2 mg IV Q2M PRN PRN Reason: Opioid Reversal Nystatin (Nystatin 100,000unit/Gm Cream 30 Gm Tube) 1 applic TOPICAL TID [facility]; Protocol Last Admin: 11/22/22 08:40 Dose: 1 applic Ondansetron HCl (Ondansetron 4 Mg/2 Ml Vial) 4 mg IVP Q6HR PRN PRN Reason: Nausea And Vomiting Last Admin: 11/22/22 11:51 Dose: 4 mg Pantoprazole Sodium (Pantoprazole 40 Mg Tablet) 40 mg PO DAILY [facility] Last Admin: 11/22/22 08:38 Dose: 40 mg Potassium Chloride (Potassium Chloride Er 20 Meq Tab.Er) 20 meq PO DAILY [facility] Last Admin: 11/22/22 08:40 Dose: 20 meq Prednisone (Prednisone 10 Mg Tab) 30 mg PO DAILY [facility] Last Admin: 11/22/22 08:37 Dose: 30 mg On examination: VITAL SIGNS: 97.8, 128, 18, 124/71, 97% on 2 L GENERAL APPEARANCE: Laying in bed slightly short of breath HEENT: Normal external appearance of nose and ear. Oral cavity normal EYES: Pupils equal. Conjunctiva normal. NECK: JVD not raised. Mass not palpable. RESPIRATORY: Respiratory effort increased. Lungs decreased breath sounds CARDIOVASCULAR: Heart sounds irregular No edema. ABDOMEN: Soft. Liver and spleen not palpable. No tenderness. No mass palpable. PSYCHIATRY: Alert and oriented x3. Mood and affect normal. INVESTIGATIONS, reviewed in the clinical context: November 22: WBC 10.6 hemoglobin 13.1 platelets was 27 potassium 4.9 creatinine 0.88 White count 11.6 hemoglobin 12.5 platelets 378 potassium 4.4 creatinine 1.02 2-D echocardiogram: EF more than 70%. Moderate aortic valve sclerosis. Moderate to severe pulmonary hypertension. Assessment: -Acute Subsegmental pulmonary embolism: No right heart strain on 2-D echo. eliquis. -Acute hypoxic respiratory failure secondary to pulmonary embolism On 2 L nasal cannula -COPD, in a ex-smoker acute exacerbation. DuoNeb 4 times a day. Symbicort. Oral prednisone -Acute on chronic congestive heart failure, acute exacerbation with preserved EF: Better Lasix 40 mg by mouth daily -atrial fibrillation with rapid ventricular rate , uncontrolled Increase Lopressor 100 mg twice a day. Cardizem 30 mg 4 times a day. eliquis -Recent UTI which was treated as an outpatient with Bactrim continues to have burning sensation although urinalysis is negative for urinary tract infection patient will be started on Mycostatin powder for possible vaginal yeast infection and peritoneum -Essential Hypertension Lopressor, Cardizem -History of uterine cancer status post hysterectomy -Morbid obesity with a BMI of 53.9 Weight loss measures -Full code Increase Lopressor to 100 mg twice a day. Increase activity as tolerated. Other medications to continue. Discussed
--- NOTE | 2022-11-22 16:04 | P.PN ---
Subjective Progress Note Date: 11/22/22 This is a 86-year-old female with a past medical history significant for COPD, congestive heart failure, hypertension, and GERD. Patient follows in the office with Dr. Medellin but has not been seen in the office since April 2021. We have been asked to see the patient in consultation for new onset atrial fibrillation. Patient examined at the bedside in the emergency room. Patient presented [facility] with a chief complaint of chest pain and shortness of breath. Patient was transferred to [facility] for further evaluation. She states that she was having chest pain in the middle of her chest and into her shoulder and behind her left ear. She also reports feeling short of breath for the past few days. She states her shortness of breath is worse with deep inspiration. She reports lower extremity edema which is not new. Patient underwent a CTA revealing acute pulmonary embolism in the segmental branches of the right middle and lower lobe with subsegmental extension. No evidence of right heart strain. The patient was started on IV heparin. The patient was also found to be in A. fib with RVR. The patient denies a history of atrial fibrillation. She does report feeling palpitations and dizzy at times. A cardiogram done this admission showed ejection fraction of 70% with moderate to severe pulmonary hypertension and mild aortic stenosis. 11/21/2022 Patient was seen and examined resting in bed. She is overall feeling a bit better. Chest x-ray shows evidence of pneumonia. Blood pressure has been stable. Heart rate is reasonably well controlled. 11/22/2022 Patient was seen and examined sitting up in his chair. She is feeling weaker today but she feels her breathing is better. She's on IV antibiotics. Her rate is controlled. Objective - Vital Signs Vital signs: Vital Signs Temp 98 F 11/22/22 08:00 Pulse 92 11/22/22 15:51 Resp 16 11/22/22 11:57 BP 110/72 11/22/22 11:57 Pulse Ox 94 L 11/22/22 11:57 FiO2 Intake & Output 11/21/22 11/22/22 11/22/22 18:59 06:59 18:59 Intake Total 240 360 Output Total 900 900 Balance -660 -540 Weight 104 kg Intake: Oral 240 360 Output: Urine 900 900 Other: Voiding Method External Catheter External Catheter External Catheter # Bowel Movements 1 - Exam VITAL SIGNS: Reviewed. GENERAL: Well-developed in no acute distress. HEENT: Head is normocephalic. Pupils are equal, round. Sclerae anicteric. Mucous membranes of the mouth are moist. Neck supple. No JVD or thyromegaly LUNGS: Respirations even and unlabored. Lungs diminished bilaterally. Faint crackles to the right lower lobe HEART: Tachycardic. Irregular rate and rhythm. S1 and S2 heard. ABDOMEN: Soft. Nondistended. Nontender. EXTREMITIES: Normal range of motion. No clubbing or cyanosis. Peripheral pulses intact. 1+ bilateral lower extremity edema NEUROLOGIC: Awake and alert. Oriented x 3. - Labs CBC & Chem 7: 11/22/22 10:59 11/22/22 10:59 Labs: Abnormal Lab Results - Last 24 Hours (Table) 11/21/22 11/22/22 11/22/22 Range/Units 20:03 05:45 10:59 Plt Count 467 H (150-450) k/uL Sodium (137-145) mmol/L Chloride (98-107) mmol/L Carbon Dioxide (22-30) mmol/L BUN (7-17) mg/dL Glucose (74-99) mg/dL POC Glucose (mg/dL) 238 H 128 H (70-110) mg/dL Calcium (8.4-10.2) mg/dL AST (14-36) U/L ALT (4-34) U/L Alkaline Phosphatase (38-126) U/L 11/22/22 11/22/22 Range/Units 10:59 11:39 Plt Count (150-450) k/uL Sodium 132 L (137-145) mmol/L Chloride 91 L (98-107) mmol/L Carbon Dioxide 35 H (22-30) mmol/L BUN 33 H (7-17) mg/dL Glucose 136 H (74-99) mg/dL POC Glucose (mg/dL) 195 H (70-110) mg/dL Calcium 8.0 L (8.4-10.2) mg/dL AST 45 H (14-36) U/L ALT 59 H (4-34) U/L Alkaline Phosphatase 129 H (38-126) U/L Assessment and Plan Assessment: Shortness of breath Acute right-sided pulmonary embolism Acute on chronic heart failure with preserved ejection fraction New-onset atrial fibrillation with RVR Acute COPD exacerbation Hypertension GERD Morbid obesity: BMI 49.1 Plan: From cardiology's perspective medications were reviewed and we will continue the same. We will continue to follow the patient and provide further recommenda tions accordingly. [employer]WARE [employer]INE[employer] note has been reviewed, I agree with a documented findings and plan of care. Patient was seen and examined.
[2022-11-22 16:17] LABS: Glucose,Whole Blood 173 mg/dL (70-110)
[2022-11-22 19:51] LABS: Glucose,Whole Blood 206 mg/dL (70-110)
[2022-11-22] MEDS: MELATONIN 5 MG TABLET PO SCH (20:22)
[2022-11-22] MEDS: METOPROLOL TARTRATE 50 MG TAB PO SCH (20:22)
[2022-11-22] MEDS: HYDROcodone/APAP 5-325MG 1 EACH TAB PO PRN (22:49)
[2022-11-23 05:38] LABS: Glucose,Whole Blood 140 mg/dL (70-110)
[2022-11-23] MEDS: INSULIN ASPART (NovoLOG) 100 UNIT/ML VIAL SQ SCH ×4 (05:38→21:16)
[2022-11-23] MEDS: HYDROcodone/APAP 7.5-325MG 1 EACH TAB PO SCH ×3 (05:41→21:19)
[2022-11-23] MEDS: IPRATROPIUM-ALBUTEROL 3 ML NEB INHALATION SCH ×4 (08:20→20:39)
[2022-11-23] MEDS: SYMBICORT 160-4.5 MCG INHALER INHALATION SCH ×2 (08:20→20:39)
[2022-11-23] MEDS: guaiFENesin-DM 600/30MG 1 EACH TAB.ER.12H PO SCH ×3 (09:19→21:19)
[2022-11-23] MEDS: METOPROLOL TARTRATE 50 MG TAB PO SCH ×2 (09:19→21:19)
[2022-11-23] MEDS: POTASSIUM CHLORIDE ER 20 MEQ TAB.ER PO SCH (09:19)
[2022-11-23] MEDS: predniSONE 10 MG TAB PO SCH (09:19)
[2022-11-23] MEDS: FUROSEMIDE 40 MG TAB PO SCH (09:19)
[2022-11-23] MEDS: PANTOPRAZOLE 40 MG TABLET PO SCH (09:19)
[2022-11-23] MEDS: DILTIAZEM ORAL 30 MG TAB PO SCH ×4 (09:19→21:20)
[2022-11-23] MEDS: APIXABAN 5 MG TAB PO SCH ×2 (09:19→21:19)
[2022-11-23] MEDS: NYSTATIN 100,000UNIT/GM CREAM 30 GM TUBE TOPICAL SCH ×3 (09:20→21:20)
[2022-11-23 09:41] LABS: Basophils % (A) 0 %; Eosinophils # (A) 0.2 k/uL (0-0.7); Eosinophils % (A) 2 %; HCT 39.5 % (34.0-46.0); HGB 12.2 gm/dL (11.4-16.0); Hypochromasia Marked; Lymphocytes # (A) 2.4 k/uL (1.0-4.8); Lymphocytes % (A) 28 %; MCH 29.9 pg (25.0-35.0); MCHC 30.9 g/dL (31.0-37.0); MCV 96.8 fL (80.0-100.0); Monocytes # (A) 0.5 k/uL (0-1.0); Monocytes % (A) 6 %; Neutrophils # (A) 5.5 k/uL (1.3-7.7); Neutrophils % (A) 62 %; Platelet Count 445 k/uL (150-450); RBC 4.08 m/uL (3.80-5.40); RDW 13.7 % (11.5-15.5); WBC 8.8 k/uL (3.8-10.6)
--- NOTE | 2022-11-23 09:49 | XR ---
EXAMINATION TYPE: XR chest 1V DATE OF EXAM: 11/23/2022 COMPARISON: 11/21/2022 HISTORY: Abnormal x-ray TECHNIQUE: Single frontal view of the chest is obtained. FINDINGS: Stable bibasilar infiltrate. There is no sizable pleural effusion or pneumothorax. Limited inspiration. Heart size normal. Severe arthropathy of the shoulders. Atherosclerotic change aorta. IMPRESSION: Stable bilateral lower lobe infiltrate.
[2022-11-23 09:58] LABS: ALT 49 U/L (4-34); AST 41 U/L (14-36); African American GFR (CKD) 73 (>60 ml/min/1.73 sqM); Albumin 3.3 g/dL (3.5-5.0); Alkaline Phosphatase 115 U/L (38-126); Anion Gap 8 mmol/L; Blood Urea Nitrogen 33 mg/dL (7-17); Calcium 7.5 mg/dL (8.4-10.2); Carbon Dioxide 30 mmol/L (22-30); Chloride 93 mmol/L (98-107); Glucose 135 mg/dL (74-99); Non-African American GFR(CKD) 63 (>60 ml/min/1.73 sqM); Sodium 131 mmol/L (137-145); Total Bilirubin 0.8 mg/dL (0.2-1.3); Total Protein 6.5 g/dL (6.3-8.2)
[2022-11-23 10:17] LABS: Potassium 5.4 mmol/L (3.5-5.1)
[2022-11-23 11:39] LABS: Glucose,Whole Blood 158 mg/dL (70-110)
--- NOTE | 2022-11-23 14:30 | P.PN ---
Subjective Progress Note Date: 11/23/22 I am seeing this patient in new consultation today 11/17/2022 in the emergency room for right-sided pulmonary embolism. Patient is an 86-year-old white female with past medical history significant for COPD, CHF, hypertension, uterine cancer status post hysterectomy, morbid obesity, and is a remote ex-smoker. She has been seen by Dr. Lynch in the past for COPD. Patient's currently on a combination of Advair and albuterol inhalers. Patient has reportedly had a recent hospital stay at [facility] between October 26 and November 01 for CHF exacerbation. She has been quite sedentary. Early yesterday morning, the patient started to experience shortness of breath and right-sided chest pain, that awoke her from her sleep. She went to [facility], and underwent a chest CTA. Clinical impression reads that there is an acute pulmonary embolism in the segmental branches of the right middle and lower lobes with subsegmental extension. There was apparently no CT evidence of right ventricular heart strain. Images are not available at this time. Patient was also found to be in new onset atrial fibrillation. Patient was started on a high intensity heparin infusion, and transferred to [facility]. Patient is currently sitting up in bed, on 3 L nasal cannula, in no acute distress. Chest x-ray shows no acute cardiopulmonary process. Patient denies any previous history of DVTs or PEs, recent travel, trauma. She does report that her daughter has history of DVT. Labs this morning are pending. Troponin levels were reportedly elevated at outside facility. Lungs are bronchospastic on auscultation. Patient is on a combination of albuterol and Symbicort inhalers. Heart rhythm is currently atrial fibrillation with rapid ventricular rate ranging from 100 to 120 bpm. Otherwise, the patient is hemodynamicly stable. On today's evaluation of 11/18/2022, the patient is grieving loss of her . The patient otherwise is stable. She remains atrial fibrillation. She was started on a Cardizem drip which is running at 5 mg an hour. She was taken off the IV heparin and she was started on anticoagulation with Eliquis. Echocardiogram was done and the results are still pending for now. On today's evaluation, she was noted to be increasingly bronchospastic and wheezy. She was started on Lasix 40 mg IV every 12 hours. She'll be also started on low-dose IV Solu-Medrol 40 mg every 6 hours. She is on DuoNeb updrafts [id number]. She is on metoprolol 50 mg twice a day and a Cardizem drip will be gradually weaned off and discontinued. No chest pain. No significant shortness of breath at this point in time. On 11/19/2022, the patient is feeling well. Less short of breath and bronchospastic compared to yesterday. Remains in atrial fibrillation. She is taking anticoagulations and the patient is currently on Eliquis 10 mg by mouth twice a day. No chest pain. No angina. No palpitations. Echo of the heart was noted from yesterday the patient has preserved LV function. Ejection fraction is order of 70% and the patient is hyperdynamic. The patient has LVH. The patient has mild aortic stenosis and moderate degree of pulmonary hypert ension and estimated pulmonary artery pressure was around 61. This could be related to chronic pulmonary hypertension as the patient has obvious features of obstructive sleep apnea and COPD. This pulmonary embolism is unlikely to be accounting for the pulmonary hypertension. I suspect this is a chronic problem. WBC count is 11.6 with a hemoglobin 12.5 and a platelet count of 378. Sodium is at 1:30 and the BUN is at 28 with a creatinine of 1.08. On 11/20/2022, the patient doing well. She is resting comfortably in bed. She is on 2 L of oxygen by nasal cannula. She remains atrial fibrillation. Rate is controlled. She is also on anticoagulants. She is on Eliquis 10 mg by mouth twice a day. Echo was noted. No major edema lower extremities. The patient has no Daniel. bronchospasm and wheezing. She was started on a prednisone burst taper starting with 30 mg as of yesterday. She is also on Symbicort and DuoNeb nebulized treatments [id number]. Ambulating. Tolerating diet. No nausea or emesis. No other complaints otherwise. Remains on metoprolol 75 mg by mouth twice a day and those being adjusted by cardiology. On 12/18/2022, the patient is having some increased cough and congestion and the patient is producing mucus. Sputum cultures have been sent and the patient will be having another chest x-ray. Note that she doesn't have any fever or chills. Repeat chest x-ray shows a infiltration of the right lower lobe and as such pneumonia is to be considered. Noted the patient is still in atrial fibrillation. Rate is controlled. She was started also on anticoagulation regarding that atrial fibrillation and new pulmonary embolism. No recent labs from today. Blood sugars at 183. Is on metoprolol 75 mg twice a day. On 11/22/2022, the patient still having some congested cough. Sputum was sent for cultures. Patient is currently on IV Rocephin. She has developed a right lower lobe pulmonary infiltrate. She remains on anticoagulation. She remains atrial fibrillation. She is on 2 L of oxygen by nasal cannula. No interval worsening shortness of breath. The white cycles of 10.6 with a hemoglobin 13.1 and a platelet count of 467, BUN is 33 with a creatinine of 0.8 and sodium levels of 132. The patient is seen today 11/23/2022 in follow-up on the selective care unit. She is currently sitting up in bed. Awake and alert in no acute distress. Maintaining O2 saturations in the 90s on 2 L/m per nasal cannula. Chest x-ray reveals stable bilateral lower lobe infiltrates. White count 8.8. Hemoglobin 12.2. Platelets 445. Sodium 131. Potassium 5.4. Bicarb 30. BUN 33. Creatinine 0.85. Glucose 135. AST 41. ALT 49. She is continued on DuoNeb inhalations, Symbicort, prednisone. Antibiotics in the form of ceftriaxone. Anticoagulated with Eliquis. Objective - Vital Signs Vital signs: Vital Signs Temp 97.5 F L 11/23/22 08:00 Pulse 108 H 11/23/22 13:08 Resp 18 11/23/22 08:00 BP 109/61 11/23/22 12:00 Pulse Ox 93 L 11/23/22 12:05 FiO2 Intake & Output 11/22/22 11/23/22 11/23/22 18:59 06:59 18:59 Intake Total 540 1080 118 Output Total 900 750 Balance -360 330 118 Intake: Oral 540 1080 118 Output: Urine 900 750 Other: Voiding Method External Catheter External Catheter External Catheter # Bowel Movements 1 - Exam GENERAL EXAM: Alert, 86-year-old morbidly obese female, on 2 L nasal cannula, resting comfortably in bed, in no apparent distress. HEAD: Normocephalic and atraumatic EYES: Normal reaction of pupils, equal size. NOSE: Clear with pink turbinates. THROAT: No erythema or exudates. NECK: No masses, no JVD. CHEST: No chest wall deformity. LUNGS: Equal air entry with faint end expiratory wheezes throughout. No crackles, rhonchi or dullness. Diminished breath sounds. CVS: S1 and S2 normal with no audible murmur, irregular rhythm. No extra heart sounds. ABDOMEN: Obese abdomen, No hepatosplenomegaly, active bowel sounds, no guarding or rigidity. SPINE: No scoliosis or deformity SKIN: No rashes CENTRAL NERVOUS SYSTEM: No focal deficits, tone is normal in all 4 extremities. EXTREMITIES: There is moderate nonpitting bilateral lower extremity peripheral edema. No clubbing, or cyanosis. Peripheral pulses are intact. - Labs CBC & Chem 7: 11/23/22 09:06 11/23/22 09:06 Labs: Abnormal Lab Results - Last 24 Hours (Table) 11/22/22 11/22/22 11/23/22 Range/Units 16:15 19:41 05:35 MCHC (31.0-37.0) g/dL Sodium (137-145) mmol/L Potassium (3.5-5.1) mmol/L Chloride (98-107) mmol/L BUN (7-17) mg/dL Glucose (74-99) mg/dL POC Glucose (mg/dL) 173 H 206 H 140 H (70-110) mg/dL Calcium (8.4-10.2) mg/dL AST (14-36) U/L ALT (4-34) U/L Albumin (3.5-5.0) g/dL 11/23/22 11/23/22 11/23/22 Range/Units 09:06 09:06 11:37 MCHC 30.9 L (31.0-37.0) g/dL Sodium 131 L (137-145) mmol/L Potassium 5.4 H (3.5-5.1) mmol/L Chloride 93 L (98-107) mmol/L BUN 33 H (7-17) mg/dL Glucose 135 H (74-99) mg/dL POC Glucose (mg/dL) 158 H (70-110) mg/dL Calcium 7.5 L (8.4-10.2) mg/dL AST 41 H (14-36) U/L ALT 49 H (4-34) U/L Albumin 3.3 L (3.5-5.0) g/dL Microbiology - Last 24 Hours (Table) 11/21/22 10:51 Gram Stain - Final Sputum Sputum Culture - Final Assessment and Plan Assessment: Acute pulmonary embolism in the segmental branches of the right middle and lower lobes with subsegmental extension. The patient was taken off the IV heparin and the patient was started on anticoagulation with Eliquis. Echocardiogram showed pulmonary hypertension which probably is a chronic problem and the patient is chronic hypoxemia, features RAFAEL and COPD. Patient is doing well, clinically stable New-onset cough and right lower lobe pulmonary infiltrate, consider possibility of a involving pneumonia involving the right lower lobe and the patient is curre ntly on IV Rocephin Acute hypoxic respiratory failure secondary to above, currently on 2 L nasal ca nnula New-onset atrial fibrillation with rapid ventricular response , the patient anticoagulation, the patient is on metoprolol 75 mg twice a day and the patient is on anticoagulants, rate is controlled for now Chronic obstructive pulmonary disease, the patient is demonstrating treating bronchospasm and wheezing, improved with steroids and bronchodilators Recent urinary tract infection treated on outpatient basis with Bactrim, patient still experiencing symptoms of dysuria and frequency Essential hypertension History of uterine cancer status post hysterectomy Morbid obesity, with a BMI of 49 Ex-smoker, remote Plan: The patient was seen and evaluated Chest x-ray, labs and medications reviewed Currently stable on 2 L nasal cannula Continue DuoNeb's, Symbicort, prednisone Complete a course of antibiotics Continue Eliquis Titrate down the FiO2 as tolerated We will continue to follow I have personally seen and examined the patient, performed the documentation and the assessment and plan as written. Number of minutes spent on the visit: 10.
--- NOTE | 2022-11-23 14:37 | P.PN ---
Progress Note - Text Progress Note Date: 11/23/[address] Dorman, is transferred from outside hospital for a pulmonary embolism patient presented with chest pain found to have subsegmental PE bilaterally. Patient was also having shortness of breath. CT was read as evidence of right ventricular strain, echo be pending troponin is negative. Patient is mildly hyponatremic is on Bactrim for UTI patient continues to complain of burning sensation patient is presently in atrial fibrillation with rapid ventricular rate. Cardiology and pulmonology evaluated the patient 11/18/2022 Patient is seen and evaluated and follow-up and currently has been transitioned to oral eliquis. Patient being followed by cardiology along with pulmonary m aintained on Cardizem although metoprolol being adjusted and increased and working on weaning Cardizem drip. Patient continues on 3 L via nasal cannula and does not normally wear oxygen outpatient also noted to have some wheezing and is receiving DuoNeb treatments along with now being started on low-dose steroids. Will add sliding scale and monitor Accu-Cheks before meals and at bedtime his blood sugars were mildly elevated. Patient denies having any burning or frequency with urination at this time. Patient is receiving IV Lasix and sodium level continues to be 130 and potassium level borderline. We'll continue lower dose IV Lasix as patient is having an acute on chronic CHF exacerbation as well. Patient was just notified that her in the emergency department in respiratory distress. Daughter is at the bedside. Patient with weakness would recommend PT/OT therapy evaluation. Recommend follow-up labs in the a.m. Chest x-ray ordered and pending. November 19: I assumed care of the patient today. Breathing is better. Feels a bit better. He was in atrial fibrillation. On eliquis. Patient's pulmonary hypertension is felt to be more chronic. The symptoms suggested RAFAEL/COPD. November 20: Remains in A. fib. Heart rate just above 100. Had a good breakfast. Tired this morning is could not sleep last night. Lopressor increased to 75 mg twice a day. We'll increase Cardizem to 30 mg 4 times a day November 3: Sitting up in a recliner. Some shortness of breath. Remains in A. fib heart rate in 1 teens. November 22: Patient has been around the room. Breathing better. A. fib. Remains just above 100. We will increase Lopressor 100 mg twice a day. November 23: Breathing better. Up in a recliner. Eating well. 2 L nasal cannula. Patient was to go home. Not keen for rehab. Active Medications Acetaminophen (Acetaminophen Tab 325 Mg Tab) 650 mg PO Q6HR PRN PRN Reason: Mild Pain or Fever > 100.5 Hydrocodone Bitart/Acetaminophen (Hydrocodone/Apap 5-325mg 1 Each Tab) 1 each PO Q4HR PRN PRN Reason: Moderate Pain (Scale 4 to 6) Last Admin: 11/22/22 22:49 Dose: 1 each Hydrocodone Bitart/Acetaminophen (Hydrocodone/Apap 7.5-325mg 1 Each Tab) 1 each PO Q8H [place] Last Admin: 11/23/22 12:45 Dose: 1 each Albuterol/Ipratropium (Ipratropium-Albuterol 3 Ml Neb) 3 ml INHALATION RT-QID [place] Last Admin: 11/23/22 12:54 Dose: 3 ml Albuterol/Ipratropium (Ipratropium-Albuterol 3 Ml Neb) 3 ml INHALATION RT-Q2H PRN PRN Reason: Shortness Of Breath Or Wheezing Last Admin: 11/17/22 05:00 Dose: 3 ml Apixaban (Apixaban 5 Mg Tab) 10 mg PO BID [facility]; Taper Stop: 12/17/22 08:59 Last Admin: 11/23/22 09:19 Dose: 10 mg Budesonide/Formoterol Fumarate (Symbicort 160-4.5 Mcg Inhaler) 2 puff INHALATION RT-BID [facility] Last Admin: 11/23/22 08:20 Dose: 2 puff Dextrose/Water (Dextrose 50% Syringe 50 Ml) 25 ml IVP PER PROTOCOL PRN; Protocol PRN Reason: Hypoglycemia Dextrose/Water (Dextrose 50% Syringe 50 Ml) 50 ml IVP PER PROTOCOL PRN; P rotocol PRN Reason: Hypoglycemia Diltiazem HCl (Diltiazem Oral 30 Mg Tab) 30 mg PO QID [facility] Last Admin: 11/23/22 12:45 Dose: 30 mg Diphenhydramine HCl (Diphenhydramine 25 Mg Cap) 25 mg PO Q6H PRN PRN Reason: Itching Last Admin: 11/20/22 23:15 Dose: 25 mg Furosemide (Furosemide 40 Mg Tab) 40 mg PO DAILY [facility] Last Admin: 11/23/22 09:19 Dose: 40 mg Guaifenesin/Dextromethorphan (Guaifenesin-Dm 600/30mg 1 Each Tab.Er.12h) 2 each PO Q12HR [facility] Last Admin: 11/23/22 09:19 Dose: 2 each Ceftriaxone Sodium 1 gm/ (Sodium Chloride) 50 mls @ 100 mls/hr IVPB Q24HR [facility]; Protocol Last Admin: 11/23/22 09:18 Dose: 100 mls/hr Insulin Aspart (Insulin Aspart (Novolog) 100 Unit/Ml Vial) 0 unit SQ ACHS [facility]; Protocol Last Admin: 11/23/22 12:45 Dose: 2 unit Melatonin (Melatonin 5 Mg Tablet) 5 mg PO HS [facility] Last Admin: 11/22/22 20:22 Dose: 5 mg Metoprolol Tartrate (Metoprolol Tartrate 50 Mg Tab) 100 mg PO BID [facility] Last Admin: 11/23/22 09:19 Dose: 100 mg Naloxone HCl (Naloxone 0.4 Mg/Ml 1 Ml Vial) 0.2 mg IV Q2M PRN PRN Reason: Opioid Reversal Nystatin (Nystatin 100,000unit/Gm Cream 30 Gm Tube) 1 applic TOPICAL TID [facility]; Protocol Last Admin: 11/23/22 09:20 Dose: 1 applic Ondansetron HCl (Ondansetron 4 Mg/2 Ml Vial) 4 mg IVP Q6HR PRN PRN Reason: Nausea And Vomiting Last Admin: 11/22/22 11:51 Dose: 4 mg Pantoprazole Sodium (Pantoprazole 40 Mg Tablet) 40 mg PO DAILY [facility] Last Admin: 11/23/22 09:19 Dose: 40 mg Potassium Chloride (Potassium Chloride Er 20 Meq Tab.Er) 20 meq PO DAILY [facility] Last Admin: 11/23/22 09:19 Dose: 20 meq Prednisone (Prednisone 10 Mg Tab) 30 mg PO DAILY [facility] Last Admin: 11/23/22 09:19 Dose: 30 mg On examination: VITAL SIGNS: 97.5, 108, 18, 11 6 x 62, 94% on 2 L GENERAL APPEARANCE: Up in a recliner HEENT: Normal external appearance of nose and ear. Oral cavity normal EYES: Pupils equal. Conjunctiva normal. NECK: JVD not raised. Mass not palpable. RESPIRATORY: Respiratory effort increased. Lungs decreased breath sounds CARDIOVASCULAR: Heart sounds irregular No edema. ABDOMEN: Soft. Liver and spleen not palpable. No tenderness. No mass palpable. PSYCHIATRY: Alert and oriented x3. Mood and affect normal. INVESTIGATIONS, reviewed in the clinical context: November 23: White count 8.8 hemoglobin 12.2 potassium 5.4 creatinine 0.85 November 22: WBC 10.6 hemoglobin 13.1 platelets was 27 potassium 4.9 creatinine 0.88 White count 11.6 hemoglobin 12.5 platelets 378 potassium 4.4 creatinine 1.02 2-D echocardiogram: EF more than 70%. Moderate aortic valve sclerosis. Moderate to severe pulmonary hypertension. Assessment: -Acute Subsegmental pulmonary embolism: No right heart strain on 2-D echo. eliquis. -Acute hypoxic respiratory failure secondary to pulmonary embolism On 2 L nasal cannula -COPD, in a ex-smoker acute exacerbation. DuoNeb 4 times a day. Symbicort. Oral prednisone -Acute on chronic congestive heart failure, acute exacerbation with preserved EF: Better Lasix 40 mg by mouth daily -New onset atrial fibrillation with rapid ventricular rate , Lopressor 100 mg twice a day. Cardizem 30 mg 4 times a day. eliquis -Recent UTI which was treated as an outpatient with Bactrim continues to have burning sensation although urinalysis is negative for urinary tract infection patient will be started on Mycostatin powder for possible vaginal yeast infection and peritoneum -Essential Hypertension Lopressor, Cardizem -History of uterine cancer status post hysterectomy -Morbid obesity with a BMI of 53.9 Weight loss measures -Full code Change Cardizem to CD 120 mg daily starting tomorrow. Overall doing better. Possible discharge tomorrow if okay with cardiology and pulmonary.
--- NOTE | 2022-11-23 15:15 | P.PN ---
Subjective HISTORY OF PRESENTING ILLNESS This is a 86-year-old female with a past medical history significant for COPD, congestive heart failure, hypertension, and GERD. Patient follows in the office with Dr. Medellin but has not been seen in the office since April 2021. We have been asked to see the patient in consultation for new onset atrial fibrillation. Patient examined at the bedside in the emergency room. Patient presented [facility] with a chief complaint of chest pain and shortness of breath. Patient was transferred to [facility] for further evaluation. She states that she was having chest pain in the middle of her chest and into her shoulder and behind her left ear. She also reports feeling short of breath for the past few days. She states her shortness of breath is worse with deep inspiration. She reports lower extremity edema which is not new. Patient underwent a CTA revealing acute pulmonary embolism in the segmental branches of the right middle and lower lobe with subsegmental extension. No evidence of right heart strain. The patient was started on IV heparin. The patient was also found to be in A. fib with RVR. The patient denies a history of atrial fibrillation. She does report feeling palpitations and dizzy at times. A cardiogram done this admission showed ejection fraction of 70% with moderate to severe pulmonary hypertension and mild aortic stenosis. 11/21/2022 Patient was seen and examined resting in bed. She is overall feeling a bit better. Chest x-ray shows evidence of pneumonia. Blood pressure has been stable. Heart rate is reasonably well controlled. 11/22/2022 Patient was seen and examined sitting up in his chair. She is feeling weaker today but she feels her breathing is better. She's on IV antibiotics. Her rate is controlled. 11/23 Patient seen and examined. Patient did not get much sleep and states she feels fatigued. Has been increased up to metoprolol 100 mg twice a day as well as Cardizem long-acting and short-acting. Heart rates mainly in the 90s and occasionally 100 on telemetry. Denies any chest pain or pressure. Believes shortness breath is slowly improving. PHYSICAL EXAMINATION Vital signs reviewed. CONSTITUTIONAL: No apparent distress. HEENT: Head is normocephalic. Pupils are equal, round. Sclerae anicteric. Mucous membranes of the mouth are moist. No JVD. No carotid bruit. CHEST EXAMINATION: Lungs are clear to auscultation. No chest wall tenderness is noted on palpation or with deep breathing. HEART EXAMINATION: Regular rate and rhythm. S1, S2 heard. No murmurs, gallops or rub. ABDOMEN: Soft, nontender. Positive bowel sounds. EXTREMITIES: 2+ peripheral pulses, no lower extremity edema and no calf tenderness. NEUROLOGIC EXAMINATION: Patient is awake, alert and oriented x3. Assessment: Shortness of breath Acute right-sided pulmonary embolism Chronic heart failure with preserved ejection fraction Persistent atrial fibrillation, new onset Acute COPD exacerbation Hypertension GERD Morbid obesity: BMI 49.1 Plan: Patient currently appears euvolemic. Heart rates predominantly controlled. Blood pressure is borderline. Continue with current regimen however if still having significant tachycardia may consider digoxin. We will change short acting to long-acting Cardizem and increase the dose. Objective - Vital Signs Vital signs: Vital Signs Temp 97.5 F L 11/23/22 08:00 Pulse 108 H 11/23/22 13:08 Resp 18 11/23/22 08:00 BP 109/61 11/23/22 12:00 Pulse Ox 93 L 11/23/22 12:05 FiO2 Intake & Output 11/22/22 11/23/22 11/23/22 18:59 06:59 18:59 Intake Total 540 1080 118 Output Total 900 750 Balance -360 330 118 Intake: Oral 540 1080 118 Output: Urine 900 750 Other: Voiding Method External Catheter External Catheter External Catheter # Bowel Movements 1 - Labs CBC & Chem 7: 11/23/22 09:06 11/23/22 09:06 Labs: Abnormal Lab Results - Last 24 Hours (Table) 11/22/22 11/22/22 11/23/22 Range/Units 16:15 19:41 05:35 MCHC (31.0-37.0) g/dL Sodium (137-145) mmol/L Potassium (3.5-5.1) mmol/L Chloride (98-107) mmol/L BUN (7-17) mg/dL Glucose (74-99) mg/dL POC Glucose (mg/dL) 173 H 206 H 140 H (70-110) mg/dL Calcium (8.4-10.2) mg/dL AST (14-36) U/L ALT (4-34) U/L Albumin (3.5-5.0) g/dL 11/23/22 11/23/2211/23/23 Range/Units 09:06 09:06 11:37 MCHC 30.9 L (31.0-37.0) g/dL Sodium 131 L (137-145) mmol/L Potassium 5.4 H (3.5-5.1) mmol/L Chloride 93 L (98-107) mmol/L BUN 33 H (7-17) mg/dL Glucose 135 H (74-99) mg/dL POC Glucose (mg/dL) 158 H (70-110) mg/dL Calcium 7.5 L (8.4-10.2) mg/dL AST 41 H (14-36) U/L ALT 49 H (4-34) U/L Albumin 3.3 L (3.5-5.0) g/dL Microbiology - Last 24 Hours (Table) 11/21/22 10:51 Gram Stain - Final Sputum Sputum Culture - Final
[2022-11-23 16:53] LABS: Glucose,Whole Blood 208 mg/dL (70-110)
[2022-11-23 19:55] LABS: Glucose,Whole Blood 199 mg/dL (70-110)
[2022-11-23] MEDS: MELATONIN 5 MG TABLET PO SCH (21:19)
[2022-11-24 06:16] LABS: Glucose,Whole Blood 118 mg/dL (70-110)
[2022-11-24] MEDS: HYDROcodone/APAP 7.5-325MG 1 EACH TAB PO SCH ×3 (06:23→21:54)
[2022-11-24] MEDS: INSULIN ASPART (NovoLOG) 100 UNIT/ML VIAL SQ SCH ×4 (06:24→21:55)
[2022-11-24] MEDS: FUROSEMIDE 40 MG TAB PO SCH (08:20)
[2022-11-24] MEDS: predniSONE 10 MG TAB PO SCH (08:20)
[2022-11-24] MEDS: PANTOPRAZOLE 40 MG TABLET PO SCH (08:20)
[2022-11-24] MEDS: METOPROLOL TARTRATE 50 MG TAB PO SCH ×2 (08:20→21:54)
[2022-11-24] MEDS: APIXABAN 5 MG TAB PO SCH ×2 (08:24→21:55)
[2022-11-24] MEDS: POTASSIUM CHLORIDE ER 20 MEQ TAB.ER PO SCH (08:24)
[2022-11-24] MEDS: NYSTATIN 100,000UNIT/GM CREAM 30 GM TUBE TOPICAL SCH ×3 (08:28→21:57)
[2022-11-24] MEDS ORDERED: DILTIAZEM CD 120 MG CAP.ER.24H PO SCH ×2 (09:00→18:15)
[2022-11-24] MEDS: IPRATROPIUM-ALBUTEROL 3 ML NEB INHALATION SCH ×4 (10:15→21:34)
[2022-11-24] MEDS: SYMBICORT 160-4.5 MCG INHALER INHALATION SCH ×2 (10:15→21:34)
[2022-11-24 11:41] LABS: Glucose,Whole Blood 155 mg/dL (70-110)
[2022-11-24 13:07] LABS: African American GFR (CKD) 75 (>60 ml/min/1.73 sqM); Anion Gap 7 mmol/L; Blood Urea Nitrogen 33 mg/dL (7-17); Calcium 7.7 mg/dL (8.4-10.2); Carbon Dioxide 34 mmol/L (22-30); Chloride 91 mmol/L (98-107); Glucose 187 mg/dL (74-99); Non-African American GFR(CKD) 65 (>60 ml/min/1.73 sqM); Potassium 4.9 mmol/L (3.5-5.1); Sodium 132 mmol/L (137-145)
--- NOTE | 2022-11-24 14:29 | P.PN ---
Subjective Progress Note Date: 11/24/22 Principal diagnosis: Acute pulmonary embolism and right lower lobe pneumonia I am seeing this patient in new consultation today 11/17/2022 in the emergency room for right-sided pulmonary embolism. Patient is an 86-year-old white female with past medical history significant for COPD, CHF, hypertension, uterine cancer status post hysterectomy, morbid obesity, and is a remote ex-smoker. She has been seen by Dr. Lynch in the past for COPD. Patient's currently on a combination of Advair and albuterol inhalers. Patient has reportedly had a recent hospital stay at [facility] between October 26 and November 01 for CHF exacerbation. She has been quite sedentary. Early yesterday morning, the patient started to experience shortness of breath and right-sided chest pain, t hat awoke her from her sleep. She went to [facility], and underwent a chest CTA. Clinical impression reads that there is an acute pulmonary embolism in the segmental branches of the right middle and lower lobes with subsegmental extension. There was apparently no CT evidence of right ventricular heart strain. Images are not available at this time. Patient was also found to be in new onset atrial fibrillation. Patient was started on a high intensity heparin infusion, and transferred to [facility]. Patient is currently sitting up in bed, on 3 L nasal cannula, in no acute distress. Chest x-ray shows no acute cardiopulmonary process. Patient denies any previous history of DVTs or PEs, recent travel, trauma. She does report that her daughter has history of DVT. Labs this morning are pending. Troponin levels were reportedly elevated at outside facility. Lungs are bronchospastic on auscultation. Patient is on a combination of albuterol and Symbicort inhalers. Heart rhythm is currently atrial fibrillation with rapid ventricular rate ranging from 100 to 120 bpm. Otherwise, the patient is hemodynamicly stable. On today's evaluation of 11/18/2022, the patient is grieving loss of her . The patient otherwise is stable. She remains atrial fibrillation. She was started on a Cardizem drip which is running at 5 mg an hour. She was taken off the IV heparin and she was started on anticoagulation with Eliquis. Echocardiogram was done and the results are still pending for now. On today's evaluation, she was noted to be increasingly bronchospastic and wheezy. She was started on Lasix 40 mg IV every 12 hours. She'll be also started on low-dose IV Solu-Medrol 40 mg every 6 hours. She is on DuoNeb updrafts [id number]. She is on metoprolol 50 mg twice a day and a Cardizem drip will be gradually weaned off and discontinued. No chest pain. No significant shortness of breath at this point in time. On 11/19/2022, the patient is feeling well. Less short of breath and bronchospastic compared to yesterday. Remains in atrial fibrillation. She is taking anticoagulations and the patient is currently on Eliquis 10 mg by mouth twice a day. No chest pain. No angina. No palpitations. Echo of the heart was noted from yesterday the patient has preserved LV function. Ejection fraction is order of 70% and the patient is hyperdynamic. The patient has LVH. The patient has mild aortic stenosis and moderate degree of pulmonary hy pertension and estimated pulmonary artery pressure was around 61. This could be related to chronic pulmonary hypertension as the patient has obvious features of obstructive sleep apnea and COPD. This pulmonary embolism is unlikely to be accounting for the pulmonary hypertension. I suspect this is a chronic problem. WBC count is 11.6 with a hemoglobin 12.5 and a platelet count of 378. Sodium i s at 1:30 and the BUN is at 28 with a creatinine of 1.08. On 11/20/2022, the patient doing well. She is resting comfortably in bed. She is on 2 L of oxygen by nasal cannula. She remains atrial fibrillation. Rate is controlled. She is also on anticoagulants. She is on Eliquis 10 mg by mouth tw ice a day. Echo was noted. No major edema lower extremities. The patient has no Daniel. bronchospasm and wheezing. She was started on a prednisone burst taper starting with 30 mg as of yesterday. She is also on Symbicort and DuoNeb nebulized treatments [id number]. Ambulating. Tolerating diet. No nausea or emesis. No other complaints otherwise. Remains on metoprolol 75 mg by mouth twice a day and those being adjusted by cardiology. On 12/18/2022, the patient is having some increased cough and congestion and the patient is producing mucus. Sputum cultures have been sent and the patient will be having another chest x-ray. Note that she doesn't have any fever or chills. Repeat chest x-ray shows a infiltration of the right lower lobe and as such pneumonia is to be considered. Noted the patient is still in atrial fibrillation. Rate is controlled. She was started also on anticoagulation regarding that atrial fibrillation and new pulmonary embolism. No recent labs from today. Blood sugars at 183. Is on metoprolol 75 mg twice a day. On 11/22/2022, the patient still having some congested cough. Sputum was sent for cultures. Patient is currently on IV Rocephin. She has developed a right lower lobe pulmonary infiltrate. She remains on anticoagulation. She remains atrial fibrillation. She is on 2 L of oxygen by nasal cannula. No interval worsening shortness of breath. The white cycles of 10.6 with a hemoglobin 13.1 and a platelet count of 467, BUN is 33 with a creatinine of 0.8 and sodium levels of 132. The patient is seen today 11/23/2022 in follow-up on the selective care unit. She is currently sitting up in bed. Awake and alert in no acute distress. Maintaining O2 saturations in the 90s on 2 L/m per nasal cannula. Chest x-ray reveals stable bilateral lower lobe infiltrates. White count 8.8. Hemoglobin 12.2. Platelets 445. Sodium 131. Potassium 5.4. Bicarb 30. BUN 33. Creatinine 0.85. Glucose 135. AST 41. ALT 49. She is continued on DuoNeb inhalations, Symbicort, prednisone. Antibiotics in the form of ceftriaxone. Anticoagulated with Eliquis. Reevaluated today on 11/24/2022, patient is complaining of intermittent cough, ayse e shortness of breath, no fever, no chills, no hemoptysis and no chest pain. Patient is on proper antibiotics, is also on proper anticoagulation therapy, and I explained to the patient that she could be considered for discharge planning in the next 24 hours. Chest x-ray from yesterday showed stable bibasilar atelectasis/infiltrates. Labs today were noted to be unremarkable. Bicarb is 34. Patient is tolerating anticoagulations therapy quite well. Objective - Vital Signs Vital signs: Vital Signs Temp 97.7 F 11/24/22 12:00 Pulse 91 11/24/22 12:00 Resp 18 11/24/22 12:00 BP 115/77 11/24/22 12:00 Pulse Ox 94 L 11/24/22 13:21 FiO2 Intake & Output 11/23/22 11/24/22 11/24/22 18:59 06:59 18:59 Intake Total 236 240 350 Output Total 400 Balance 236 240 -50 Intake: Oral 236 240 350 Output: Urine 400 Other: Voiding Method External Catheter External Catheter External Catheter # Bowel Movements 1 - Exam GENERAL EXAM: 86-year-old female in no distress, on 2 L nasal cannula HEAD: Normocephalic and atraumatic EYES: Normal reaction of pupils, equal size. NOSE: Clear with pink turbinates. THROAT: No erythema or exudates. NECK: No masses, no JVD. CHEST: No chest wall deformity. LUNGS: Minimal crackles at the bases no rhonchi and no wheezes CVS: S1 and S2 normal with no audible murmur, irregular rhythm. No extra heart sounds. ABDOMEN: Obese abdomen, No hepatosplenomegaly, active bowel sounds, no guarding or rigidity. SKIN: No rashes CENTRAL NERVOUS SYSTEM: Alert and oriented 3 no focal deficit EXTREMITIES: 1+ bipedal edema. - Labs CBC & Chem 7: 11/23/22 09:06 11/24/22 12:34 Labs: Abnormal Lab Results - Last 24 Hours (Table) 11/23/22 11/23/22 11/24/22 Range/Units 16:51 19:47 06:15 Sodium (137-145) mmol/L Chloride (98-107) mmol/L Carbon Dioxide (22-30) mmol/L BUN (7-17) mg/dL Glucose (74-99) mg/dL POC Glucose (mg/dL) 208 H 199 H 118 H (70-110) mg/dL Calcium (8.4-10.2) mg/dL 11/24/22 11/24/22 Range/Units 11:36 12:34 Sodium 132 L (137-145) mmol/L Chloride 91 L (98-107) mmol/L Carbon Dioxide 34 H (22-30) mmol/L BUN 33 H (7-17) mg/dL Glucose 187 H (74-99) mg/dL POC Glucose (mg/dL) 155 H (70-110) mg/dL Calcium 7.7 L (8.4-10.2) mg/dL Microbiology - Last 24 Hours (Table) 11/21/22 10:51 Gram Stain - Final Sputum Sputum Culture - Final Assessment and Plan Assessment: Acute pulmonary embolism 2 suspect acute right lower lobe pneumonia, community-acquired. Acute hypoxic respiratory failure secondary to above, currently on 2 L nasal cannula secondary to above New-onset atrial fibrillation with rapid ventricular response , most likely tri ggered by an acute pulmonary embolism being addressed by cardiology. Chronic obstructive pulmonary disease, improving on physical examination. Recent urinary tract infection Essential hypertension History of uterine cancer status post hysterectomy Morbid obesity, with a BMI of 49 Ex-smoker Recommendation: Continue anticoagulation therapy/eliquis Continue antibiotics Continue bronchodilators Continue to titrate FiO2 as tolerated Continue DuoNeb Symbicort and prednisone Consider discharge planning in the next 24 hours. We'll continue to follow for now. Time with Patient: Less than 30
--- NOTE | 2022-11-24 14:56 | P.PN ---
Progress Note - Text Progress Note Date: 11/24/[address] Dorman, is transferred from outside hospital for a pulmonary embolism patient presented with chest pain found to have subsegmental PE bilaterally. Patient was also having shortness of breath. CT was read as evidence of right ventricular strain, echo be pending troponin is negative. Patient is mildly hyponatremic is on Bactrim for UTI patient continues to complain of burning sensation patient is presently in atrial fibrillation with rapid ventricular rate. Cardiology and pulmonology evaluated the patient 11/18/2022 Patient is seen and evaluated and follow-up and currently has been transitioned to oral eliquis. Patient being followed by cardiology along with pulmonary m aintained on Cardizem although metoprolol being adjusted and increased and working on weaning Cardizem drip. Patient continues on 3 L via nasal cannula and does not normally wear oxygen outpatient also noted to have some wheezing and is receiving DuoNeb treatments along with now being started on low-dose steroids. Will add sliding scale and monitor Accu-Cheks before meals and at bedtime his blood sugars were mildly elevated. Patient denies having any burning or frequency with urination at this time. Patient is receiving IV Lasix and sodium level continues to be 130 and potassium level borderline. We'll continue lower dose IV Lasix as patient is having an acute on chronic CHF exacerbation as well. Patient was just notified that her in the emergency department in respiratory distress. Daughter is at the bedside. Patient with weakness would recommend PT/OT therapy evaluation. Recommend follow-up labs in the a.m. Chest x-ray ordered and pending. November 19: I assumed care of the patient today. Breathing is better. Feels a bit better. He was in atrial fibrillation. On eliquis. Patient's pulmonary hypertension is felt to be more chronic. The symptoms suggested RAFAEL/COPD. November 20: Remains in A. fib. Heart rate just above 100. Had a good breakfast. Tired this morning is could not sleep last night. Lopressor increased to 75 mg twice a day. We'll increase Cardizem to 30 mg 4 times a day November 3: Sitting up in a recliner. Some shortness of breath. Remains in A. fib heart rate in 1 teens. November 22: Patient has been around the room. Breathing better. A. fib. Remains just above 100. We will increase Lopressor 100 mg twice a day. November 23: Breathing better. Up in a recliner. Eating well. 2 L nasal cannula. Patient was to go home. Not keen for rehab. November 24: Patient been up in a recliner. Congested cough. Not really able to expectorate. Mucinex added. Patient was seen by pulmonary and oncology both cleared for discharge. Patient daughter at the bedside reluctant about going home. Patient's recently in the hospital. Several questions at length and answered. They're looking for assurance that patient will not be readmitted. I did explain I could not do the same. Total time spent today about 55 minutes Active Medications Acetaminophen (Acetaminophen Tab 325 Mg Tab) 650 mg PO Q6HR PRN PRN Reason: Mild Pain or Fever > 100.5 Hydrocodone Bitart/Acetaminophen (Hydrocodone/Apap 5-325mg 1 Each Tab) 1 each PO Q4HR PRN PRN Reason: Moderate Pain (Scale 4 to 6) Last Admin: 11/22/22 22:49 Dose: 1 each Hydrocodone Bitart/Acetaminophen (Hydrocodone/Apap 7.5-325mg 1 Each Tab) 1 each PO Q8H [place] Last Admin: 11/24/22 06:23 Dose: 1 each Albuterol/Ipratropium (Ipratropium-Albuterol 3 Ml Neb) 3 ml INHALATION RT-QID [facility] Last Admin: 11/24/22 13:54 Dose: Not Given Albuterol/Ipratropium (Ipratropium-Albuterol 3 Ml Neb) 3 ml INHALATION RT-Q2H PRN PRN Reason: Shortness Of Breath Or Wheezing Last Admin: 11/17/22 05:00 Dose: 3 ml Apixaban (Apixaban 5 Mg Tab) 5 mg PO BID [place]; Taper Stop: 12/17/22 08:59 Last Admin: 11/24/22 08:24 Dose: 5 mg Budesonide/Formoterol Fumarate (Symbicort 160-4.5 Mcg Inhaler) 2 puff INHALATION RT-BID [facility] Last Admin: 11/24/22 10:15 Dose: 2 puff Dextrose/Water (Dextrose 50% Syringe 50 Ml) 25 ml IVP PER PROTOCOL PRN; Protocol PRN Reason: Hypoglycemia Dextrose/Water (Dextrose 50% Syringe 50 Ml) 50 ml IVP PER PROTOCOL PRN; Protocol PRN Reason: Hypoglycemia Diltiazem HCl (Diltiazem Cd 120 Mg Cap.Er.24h) 120 mg PO DAILY [facility] Last Admin: 11/24/22 08:20 Dose: 120 mg Diphenhydramine HCl (Diphenhydramine 25 Mg Cap) 25 mg PO Q6H PRN PRN Reason: Itching Last Admin: 11/20/22 23:15 Dose: 25 mg Furosemide (Furosemide 40 Mg Tab) 40 mg PO DAILY [facility] Last Admin: 11/24/22 08:20 Dose: 40 mg Guaifenesin (Guaifenesin 600 Mg Tablet.Er) 600 mg PO QID [facility] Ceftriaxone Sodium 1 gm/ (Sodium Chloride) 50 mls @ 100 mls/hr IVPB Q24HR [facility]; Protocol Last Admin: 11/24/22 08:19 Dose: 100 mls/hr Insulin Aspart (Insulin Aspart (Novolog) 100 Unit/Ml Vial) 0 unit SQ ACHS [facility]; Protocol Last Admin: 11/24/22 12:55 Dose: 2 unit Melatonin (Melatonin 5 Mg Tablet) 5 mg PO HS [facility] Last Admin: 11/23/22 21:19 Dose: 5 mg Metoprolol Tartrate (Metoprolol Tartrate 50 Mg Tab) 100 mg PO BID [facility] Last Admin: 11/24/22 08:20 Dose: 100 mg Naloxone HCl (Naloxone 0.4 Mg/Ml 1 Ml Vial) 0.2 mg IV Q2M PRN PRN Reason: Opioid Reversal Nystatin (Nystatin 100,000unit/Gm Cream 30 Gm Tube) 1 applic TOPICAL TID [facility]; Protocol Last Admin: 11/24/22 08:28 Dose: 1 applic Ondansetron HCl (Ondansetron 4 Mg/2 Ml Vial) 4 mg IVP Q6HR PRN PRN Reason: Nausea And Vomiting Last Admin: 11/22/22 11:51 Dose: 4 mg Pantoprazole Sodium (Pantoprazole 40 Mg Tablet) 40 mg PO DAILY [facility] Last Admin: 11/24/22 08:20 Dose: 40 mg Potassium Chloride (Potassium Chloride Er 20 Meq Tab.Er) 20 meq PO DAILY [facility] Last Admin: 11/24/22 08:24 Dose: 20 meq Prednisone (Prednisone 10 Mg Tab) 30 mg PO DAILY [facility] Last Admin: 11/24/22 08:20 Dose: 30 mg On examination: VITAL SIGNS: 97.7, 91, 18, 115/77, 94% on 3 L GENERAL APPEARANCE: Reclining in bed HEENT: Normal external appearance of nose and ear. Oral cavity normal EYES: Pupils equal. Conjunctiva normal. NECK: JVD not raised. Mass not palpable. RESPIRATORY: Respiratory effort increased. Lungs decreased breath sounds CARDIOVASCULAR: Heart sounds irregular No edema. ABDOMEN: Soft. Liver and spleen not palpable. No tenderness. No mass palpable. PSYCHIATRY: Alert and oriented x3. Mood and affect normal. INVESTIGATIONS, reviewed in the clinical context: November 24: Potassium 4.9 creatinine 0.83 November 23: White count 8.8 hemoglobin 12.2 potassium 5.4 creatinine 0.85 November 22: WBC 10.6 hemoglobin 13.1 platelets was 27 potassium 4.9 creatinine 0.88 White count 11.6 hemoglobin 12.5 platelets 378 potassium 4.4 creatinine 1.02 2-D echocardiogram: EF more than 70%. Moderate aortic valve sclerosis. Moderate to severe pulmonary hypertension. Assessment: -Acute Subsegmental pulmonary embolism: No right heart strain on 2-D echo. eliquis. -Acute hypoxic respiratory failure secondary to pulmonary embolism On 2 L nasal cannula -COPD, in a ex-smoker acute exacerbation. DuoNeb 4 times a day. Symbicort. Oral prednisone -Acute on chronic congestive heart failure, acute exacerbation with preserved EF: Better Lasix 40 mg by mouth daily -New onset atrial fibrillation with rapid ventricular rate : Better, Lopressor 100 mg twice a day. Cardizem CD 120 mg a day. eliquis -Recent UTI which was treated as an outpatient with Bactrim continues to have burning sensation although urinalysis is negative for urinary tract infection patient will be started on Mycostatin powder for possible vaginal yeast infection and peritoneum -Essential Hypertension Lopressor, Cardizem -History of uterine cancer status post hysterectomy -Morbid obesity with a BMI of 53.9 Weight loss measures -No code, per patient wishes Patient and daughter reluctant to go home. Did also questions at length. Hoping for discharge tomorrow.
[2022-11-24] MEDS: guaiFENesin 600 MG TABLET.ER PO SCH ×3 (16:01→21:54)
[2022-11-24] MEDS: ONDANSETRON 4 MG/2 ML VIAL IVP PRN (16:06)
[2022-11-24 16:50] LABS: Glucose,Whole Blood 221 mg/dL (70-110)
--- NOTE | 2022-11-24 18:07 | P.PN ---
Subjective HISTORY OF PRESENTING ILLNESS This is a 86-year-old female with a past medical history significant for COPD, congestive heart failure, hypertension, and GERD. Patient follows in the office with Dr. Medellin but has not been seen in the office since April 2021. We have been asked to see the patient in consultation for new onset atrial fibrillation. Patient examined at the bedside in the emergency room. Patient presented [facility] with a chief complaint of chest pain and shortness of breath. Patient was transferred to [facility] for further evaluation. She states that she was having chest pain in the middle of her chest and into her shoulder and behind her left ear. She also reports feeling short of breath for the past few days. She states her shortness of breath is worse with deep inspiration. She reports lower extremity edema which is not new. Patient underwent a CTA revealing acute pulmonary embolism in the segmental branches of the right middle and lower lobe with subsegmental extension. No evidence of right heart strain. The patient was started on IV heparin. The patient was also found to be in A. fib with RVR. The patient denies a history of atrial fibrillation. She does report feeling palpitations and dizzy at times. A cardiogram done this admission showed ejection fraction of 70% with moderate to severe pulmonary hypertension and mild aortic stenosis. 11/21/2022 Patient was seen and examined resting in bed. She is overall feeling a bit better. Chest x-ray shows evidence of pneumonia. Blood pressure has been stable. Heart rate is reasonably well controlled. 11/22/2022 Patient was seen and examined sitting up in his chair. She is feeling weaker today but she feels her breathing is better. She's on IV antibiotics. Her rate is controlled. 11/23 Patient seen and examined. Patient did not get much sleep and states she feels fatigued. Has been increased up to metoprolol 100 mg twice a day as well as Cardizem long-acting and short-acting. Heart rates mainly in the 90s and occasionally 100 on telemetry. Denies any chest pain or pressure. Believes shortness breath is slowly improving. 11/24 Patient seen and examined. Patient and daughter still concerned with going home. Denies any actual chest pain or pressure. Still remain short of breath and on oxygen however stable. HR's 90-110's PHYSICAL EXAMINATION Vital signs reviewed. CONSTITUTIONAL: No apparent distress. HEENT: Head is normocephalic. Pupils are equal, round. Sclerae anicteric. Mucous membranes of the mouth are moist. No JVD. No carotid bruit. CHEST EXAMINATION: Lungs are clear to auscultation. No chest wall tenderness is noted on palpation or with deep breathing. HEART EXAMINATION: Regular rate and rhythm. S1, S2 heard. No murmurs, gallops or rub. ABDOMEN: Soft, nontender. Positive bowel sounds. EXTREMITIES: 2+ peripheral pulses, no lower extremity edema and no calf tenderness. NEUROLOGIC EXAMINATION: Patient is awake, alert and oriented x3. Assessment: Shortness of breath Acute right-sided pulmonary embolism Chronic heart failure with preserved ejection fraction Persistent atrial fibrillation, new onset Acute COPD exacerbation Hypertension GERD Morbid obesity: BMI 49.1 Plan: Currently patient appears euvolemic. Continue with current regimen however increase Cardizem from 120-180 and add additional 60 mg dose 1 today. Hopeful discharge home tomorrow. Objective - Vital Signs Vital signs: Vital Signs Temp 98.2 F 11/24/22 16:12 Pulse 100 11/24/22 16:15 Resp 18 11/24/22 16:12 BP 135/80 11/24/22 16:12 Pulse Ox 95 11/24/22 16:12 FiO2 Intake & Output 11/23/22 11/24/22 11/24/22 18:59 06:59 18:59 Intake Total 236 240 350 Output Total 1150 Balance 236 240 -800 Intake: Oral 236 240 350 Output: Urine 1150 Other: Voiding Method External Catheter External Catheter External Catheter # Voids 1 # Bowel Movements 1 - Labs CBC & Chem 7: 11/23/22 09:06 11/24/22 12:34 Labs: Abnormal Lab Results - Last 24 Hours (Table) 11/23/22 11/24/22 11/24/22 Range/Units 19:47 06:15 11:36 Sodium (137-145) mmol/L Chloride (98-107) mmol/L Carbon Dioxide (22-30) mmol/L BUN (7-17) mg/dL Glucose (74-99) mg/dL POC Glucose (mg/dL) 199 H 118 H 155 H (70-110) mg/dL Calcium (8.4-10.2) mg/dL 11/24/22 11/24/22 Range/Units 12:34 16:43 Sodium 132 L (137-145) mmol/L Chloride 91 L (98-107) mmol/L Carbon Dioxide 34 H (22-30) mmol/L BUN 33 H (7-17) mg/dL Glucose 187 H (74-99) mg/dL POC Glucose (mg/dL) 221 H (70-110) mg/dL Calcium 7.7 L (8.4-10.2) mg/dL
[2022-11-24 20:21] LABS: Glucose,Whole Blood 176 mg/dL (70-110)
[2022-11-24] MEDS: MELATONIN 5 MG TABLET PO SCH (21:54)
[2022-11-25] MEDS: INSULIN ASPART (NovoLOG) 100 UNIT/ML VIAL SQ SCH ×2 (06:22→12:39)
[2022-11-25 06:29] LABS: Glucose,Whole Blood 127 mg/dL (70-110)
[2022-11-25] MEDS: HYDROcodone/APAP 7.5-325MG 1 EACH TAB PO SCH ×2 (06:35→12:40)
[2022-11-25 08:19] VITALS: TEMP 97.8
[2022-11-25] MEDS: IPRATROPIUM-ALBUTEROL 3 ML NEB INHALATION SCH ×3 (08:51→16:02)
[2022-11-25] MEDS: SYMBICORT 160-4.5 MCG INHALER INHALATION SCH (08:51)
[2022-11-25] MEDS ORDERED: DILTIAZEM CD 180 MG CAP.ER.24H PO SCH (09:00)
[2022-11-25] MEDS: PANTOPRAZOLE 40 MG TABLET PO SCH (09:18)
[2022-11-25] MEDS: POTASSIUM CHLORIDE ER 20 MEQ TAB.ER PO SCH (09:18)
[2022-11-25] MEDS: METOPROLOL TARTRATE 50 MG TAB PO SCH (09:18)
[2022-11-25] MEDS: FUROSEMIDE 40 MG TAB PO SCH (09:18)
[2022-11-25] MEDS: guaiFENesin 600 MG TABLET.ER PO SCH ×2 (09:18→12:39)
[2022-11-25] MEDS: APIXABAN 5 MG TAB PO SCH (09:18)
[2022-11-25] MEDS: predniSONE 10 MG TAB PO SCH (09:18)
[2022-11-25] MEDS: NYSTATIN 100,000UNIT/GM CREAM 30 GM TUBE TOPICAL SCH (09:19)
[2022-11-25 11:53] LABS: Glucose,Whole Blood 171 mg/dL (70-110)
[2022-11-25 12:50] VITALS: BP 131/66; PULSE 91; RESP 16
--- NOTE | 2022-11-25 15:30 | P.PN ---
Subjective Progress Note Date: 11/25/22 Principal diagnosis: Acute pulmonary embolism and right lower lobe pneumonia I am seeing this patient in new consultation today 11/17/2022 in the emergency room for right-sided pulmonary embolism. Patient is an 86-year-old white female with past medical history significant for COPD, CHF, hypertension, uterine cancer status post hysterectomy, morbid obesity, and is a remote ex-smoker. She has been seen by Dr. Lynch in the past for COPD. Patient's currently on a combination of Advair and albuterol inhalers. Patient has reportedly had a recent hospital stay at [facility] between October 26 and November 01 for CHF exacerbation. She has been quite sedentary. Early yesterday morning, the patient started to experience shortness of breath and right-sided chest pain, t hat awoke her from her sleep. She went to [facility], and underwent a chest CTA. Clinical impression reads that there is an acute pulmonary embolism in the segmental branches of the right middle and lower lobes with subsegmental extension. There was apparently no CT evidence of right ventricular heart strain. Images are not available at this time. Patient was also found to be in new onset atrial fibrillation. Patient was started on a high intensity heparin infusion, and transferred to [facility]. Patient is currently sitting up in bed, on 3 L nasal cannula, in no acute distress. Chest x-ray shows no acute cardiopulmonary process. Patient denies any previous history of DVTs or PEs, recent travel, trauma. She does report that her daughter has history of DVT. Labs this morning are pending. Troponin levels were reportedly elevated at outside facility. Lungs are bronchospastic on auscultation. Patient is on a combination of albuterol and Symbicort inhalers. Heart rhythm is currently atrial fibrillation with rapid ventricular rate ranging from 100 to 120 bpm. Otherwise, the patient is hemodynamicly stable. On today's evaluation of 11/18/2022, the patient is grieving loss of her . The patient otherwise is stable. She remains atrial fibrillation. She was started on a Cardizem drip which is running at 5 mg an hour. She was taken off the IV heparin and she was started on anticoagulation with Eliquis. Echocardiogram was done and the results are still pending for now. On today's evaluation, she was noted to be increasingly bronchospastic and wheezy. She was started on Lasix 40 mg IV every 12 hours. She'll be also started on low-dose IV Solu-Medrol 40 mg every 6 hours. She is on DuoNeb updrafts [id number]. She is on metoprolol 50 mg twice a day and a Cardizem drip will be gradually weaned off and discontinued. No chest pain. No significant shortness of breath at this point in time. On 11/19/2022, the patient is feeling well. Less short of breath and bronchospastic compared to yesterday. Remains in atrial fibrillation. She is taking anticoagulations and the patient is currently on Eliquis 10 mg by mouth twice a day. No chest pain. No angina. No palpitations. Echo of the heart was noted from yesterday the patient has preserved LV function. Ejection fraction is order of 70% and the patient is hyperdynamic. The patient has LVH. The patient has mild aortic stenosis and moderate degree of pulmonary hy pertension and estimated pulmonary artery pressure was around 61. This could be related to chronic pulmonary hypertension as the patient has obvious features of obstructive sleep apnea and COPD. This pulmonary embolism is unlikely to be accounting for the pulmonary hypertension. I suspect this is a chronic problem. WBC count is 11.6 with a hemoglobin 12.5 and a platelet count of 378. Sodium i s at 1:30 and the BUN is at 28 with a creatinine of 1.08. On 11/20/2022, the patient doing well. She is resting comfortably in bed. She is on 2 L of oxygen by nasal cannula. She remains atrial fibrillation. Rate is controlled. She is also on anticoagulants. She is on Eliquis 10 mg by mouth tw ice a day. Echo was noted. No major edema lower extremities. The patient has no Daniel. bronchospasm and wheezing. She was started on a prednisone burst taper starting with 30 mg as of yesterday. She is also on Symbicort and DuoNeb nebulized treatments [id number]. Ambulating. Tolerating diet. No nausea or emesis. No other complaints otherwise. Remains on metoprolol 75 mg by mouth twice a day and those being adjusted by cardiology. On 12/18/2022, the patient is having some increased cough and congestion and the patient is producing mucus. Sputum cultures have been sent and the patient will be having another chest x-ray. Note that she doesn't have any fever or chills. Repeat chest x-ray shows a infiltration of the right lower lobe and as such pneumonia is to be considered. Noted the patient is still in atrial fibrillation. Rate is controlled. She was started also on anticoagulation regarding that atrial fibrillation and new pulmonary embolism. No recent labs from today. Blood sugars at 183. Is on metoprolol 75 mg twice a day. On 11/22/2022, the patient still having some congested cough. Sputum was sent for cultures. Patient is currently on IV Rocephin. She has developed a right lower lobe pulmonary infiltrate. She remains on anticoagulation. She remains atrial fibrillation. She is on 2 L of oxygen by nasal cannula. No interval worsening shortness of breath. The white cycles of 10.6 with a hemoglobin 13.1 and a platelet count of 467, BUN is 33 with a creatinine of 0.8 and sodium levels of 132. The patient is seen today 11/23/2022 in follow-up on the selective care unit. She is currently sitting up in bed. Awake and alert in no acute distress. Maintaining O2 saturations in the 90s on 2 L/m per nasal cannula. Chest x-ray reveals stable bilateral lower lobe infiltrates. White count 8.8. Hemoglobin 12.2. Platelets 445. Sodium 131. Potassium 5.4. Bicarb 30. BUN 33. Creatinine 0.85. Glucose 135. AST 41. ALT 49. She is continued on DuoNeb inhalations, Symbicort, prednisone. Antibiotics in the form of ceftriaxone. Anticoagulated with Eliquis. Reevaluated today on 11/24/2022, patient is complaining of intermittent cough, ayse e shortness of breath, no fever, no chills, no hemoptysis and no chest pain. Patient is on proper antibiotics, is also on proper anticoagulation therapy, and I explained to the patient that she could be considered for discharge planning in the next 24 hours. Chest x-ray from yesterday showed stable bibasilar atelectasis/infiltrates. Labs today were noted to be unremarkable. Bicarb is 34. Patient is tolerating anticoagulations therapy quite well. Reevaluated today on 11/25/2022, patient continues to have intermittent cough, some shortness of breath, no fever, no chills, no hemoptysis, and no chest pain. Chest x-ray from 2 days ago showed stable bilateral lower lobe infiltrates. Last WBC count was 8.8 hemoglobin is 12.2 electrolytes are normal renal profile is normal patient remains on antibiotics, remains on oxygen, and she remains on anticoagulation therapy for her pulmonary embolism. On physical examination, the patient had minimal crackles at the bases, no rhonchi no wheezes, discussed with the admitting physician, consider discharge planning of the patient is cleared by other consultants and by the admitting physician. If the patient is to be discharged home, she needs to be on oxygen, antibiotics in the form of Ceftin, bronchodilators, and she should continue her anticoagulation therapy patient normally sees Dr. Lynch, and she could have follow-up with Dr. Isaiah hurley in one to 2 weeks at the most Objective - Vital Signs Vital signs: Vital Signs Temp 97.8 F 11/25/22 08:18 Pulse 100 11/25/22 12:05 Resp 16 11/25/22 12:00 BP 131/66 11/25/22 12:00 Pulse Ox 95 11/25/22 12:00 FiO2 Intake & Output 11/24/22 11/25/22 11/25/22 18:59 06:59 18:59 Intake Total 590 358 Output Total 1150 350 175 Balance -560 -350 183 Intake: Oral 590 358 Output: Urine 1150 350 175 Other: Voiding Method External Catheter External Catheter External Catheter # Voids 1 1 # Bowel Movements 1 1 - Exam GENERAL EXAM: 86-year-old female in no distress, on 2 L nasal cannula HEAD: Normocephalic and atraumatic EYES: Normal reaction of pupils, equal size. NOSE: Clear with pink turbinates. THROAT: No erythema or exudates. NECK: No masses, no JVD. CHEST: No chest wall deformity. LUNGS: Minimal crackles at the bases no rhonchi and no wheezes CVS: S1 and S2 normal with no audible murmur, irregular rhythm. No extra heart sounds. ABDOMEN: Obese abdomen, No hepatosplenomegaly, active bowel sounds, no guarding or rigidity. SKIN: No rashes CENTRAL NERVOUS SYSTEM: Alert and oriented 3 no focal deficit EXTREMITIES: Trace of bipedal edema. - Labs CBC & Chem 7: 11/23/22 09:06 11/24/22 12:34 Labs: Abnormal Lab Results - Last 24 Hours (Table) 11/24/22 11/24/22 11/25/22 Range/Units 16:43 20:20 06:15 POC Glucose (mg/dL) 221 H 176 H 127 H (70-110) mg/dL 11/25/22 Range/Units 11:51 POC Glucose (mg/dL) 171 H (70-110) mg/dL Assessment and Plan Assessment: Acute pulmonary embolism 2 suspect acute right lower lobe pneumonia, community-acquired. Acute hypoxic respiratory failure secondary to above, currently on 2 L nasal cannula secondary to above New-onset atrial fibrillation with rapid ventricular response , most likely triggered by an acute pulmonary embolism being addressed by cardiology. Chronic obstructive pulmonary disease Recent urinary tract infection Essential hypertension History of uterine cancer status post hysterectomy Morbid obesity, with a BMI of 49 Ex-smoker Recommendation: Continue anticoagulation therapy/eliquis Continue antibiotics could transition patient to Ceftin orally. Continue bronchodilators Continue to titrate FiO2 as tolerated Continue DuoNeb Symbicort and prednisone If the patient is cleared by other physicians on the case to discharge home, she should have follow-up with Dr. Lynch in one week, Patient may qualify for home oxygen at 2 L/m. Will follow as needed. Time with Patient: Less than 30
--- NOTE | 2022-11-25 16:06 | P.PN ---
Subjective Progress Note Date: 11/25/22 HISTORY OF PRESENTING ILLNESS This is a 86-year-old female with a past medical history significant for COPD, congestive heart failure, hypertension, and GERD. Patient follows in the office with Dr. Medellin but has not been seen in the office since April 2021. We have been asked to see the patient in consultation for new onset atrial fibrillation. Patient examined at the bedside in the emergency room. Patient presented [facility] with a chief complaint of chest pain and shortness of breath. Patient was transferred to [facility] for further evaluation. She states that she was having chest pain in the middle of her chest and into her shoulder and behind her left ear. She also reports feeling short of breath for the past few days. She states her shortness of breath is worse with deep inspiration. She reports lower extremity edema which is not new. Patient underwent a CTA revealing acute pulmonary embolism in the segmental branches of the right middle and lower lobe with subsegmental extension. No evidence of right heart strain. The patient was started on IV heparin. The patient was also found to be in A. fib with RVR. The patient denies a history of atrial fibrillation. She does report feeling palpitations and dizzy at times. A cardiogram done this admission showed ejection fraction of 70% with moderate to severe pulmonary hypertension and mild aortic stenosis. 11/21/2022 Patient was seen and examined resting in bed. She is overall feeling a bit better. Chest x-ray shows evidence of pneumonia. Blood pressure has been stable. Heart rate is reasonably well controlled. 11/22/2022 Patient was seen and examined sitting up in his chair. She is feeling weaker today but she feels her breathing is better. She's on IV antibiotics. Her rate is controlled. 11/23 Patient seen and examined. Patient did not get much sleep and states she feels fatigued. Has been increased up to metoprolol 100 mg twice a day as well as Cardizem long-acting and short-acting. Heart rates mainly in the 90s and occasionally 100 on telemetry. Denies any chest pain or pressure. Believes shortness breath is slowly improving. 11/24 Patient seen and examined. Patient and daughter still concerned with going home. Denies any actual chest pain or pressure. Still remain short of breath and on oxygen however stable. HR's 90-110's 11/25 Patient is seen in follow-up today. He complains of cough and sore throat. Cough is nonproductive. She denies difficulty in breathing and no chest pain. Heart rate is running in the 90s, blood pressure 131/66. Telemetry is atrial fibrillation. Patient is planning for discharge home today. Nursing noticed that patient had a large bruise on the buttocks, no hematoma. She has been started on eliquis. No injuries noted. Patient family to monitor bruise. PHYSICAL EXAMINATION Vital signs reviewed. CONSTITUTIONAL: No apparent distress. HEENT: Head is normocephalic. Pupils are equal, round. Sclerae anicteric. Mucous membranes of the mouth are moist. No JVD. No carotid bruit. CHEST EXAMINATION: Lungs are clear to auscultation. No chest wall tenderness is noted on palpation or with deep breathing. HEART EXAMINATION: Irregular rate and rhythm. S1, S2 heard. No murmurs, gallops or rub. ABDOMEN: Soft, nontender. Positive bowel sounds. EXTREMITIES: 2+ peripheral pulses, no lower extremity edema and no calf tenderness. NEUROLOGIC EXAMINATION: Patient is awake, alert and oriented x3. Assessment: Shortness of breath Acute right-sided pulmonary embolism Chronic heart failure with preserved ejection fraction Persistent atrial fibrillation, new onset Acute COPD exacerbation Hypertension GERD Morbid obesity: BMI 49.1 Plan: Currently patient appears euvolemic. Continue with current regimen and patient is cleared for discharge home today. Patient will follow-up with Dr. Medellin in one week. Nurse practitioner note has been reviewed, I agree with the documented findings and plan of care. Patient was seen and examined. Objective - Vital Signs Vital signs: Vital Signs Temp 97.8 F 11/25/22 08:18 Pulse 100 11/25/22 12:05 Resp 16 11/25/22 12:00 BP 131/66 11/25/22 12:00 Pulse Ox 95 11/25/22 12:00 FiO2 Intake & Output 11/24/22 11/25/22 11/25/22 18:59 06:59 18:59 Intake Total 590 358 Output Total 1150 350 175 Balance -560 -350 183 Intake: Oral 590 358 Output: Urine 1150 350 175 Other: Voiding Method External Catheter External Catheter External Catheter # Voids 1 1 # Bowel Movements 1 1 - Labs CBC & Chem 7: 11/23/22 09:06 11/24/22 12:34 Labs: Abnormal Lab Results - Last 24 Hours (Table) 11/24/22 11/24/22 11/25/22 Range/Units 16:43 20:20 06:15 POC Glucose (mg/dL) 221 H 176 H 127 H (70-110) mg/dL 11/25/22 Range/Units 11:51 POC Glucose (mg/dL) 171 H (70-110) mg/dL
--- NOTE | 2022-11-26 10:13 | P.DS ---
Providers Date of admission: 11/16/22 18:03 Expected date of discharge: 11/25/22 Attending physician: Kameron Porter Consults: 11/16/22 18:03 Consult Physician Routine Consulting Provider: Christiano Villanueva Consult Reason/Comments: Acute PE Do you want consulting provider notified?: Yes 11/16/22 20:56 Consult Physician Routine Consulting Provider: Edgar Romero Consult Reason/Comments: new atrial fibrillation Do you want consulting provider notified?: Yes Primary care physician: Jason Dorman [facility] Course: Patient of Dr. Dorman, is transferred from outside hospital for a pulmonary embolism patient presented with chest pain found to have subsegmental PE bilaterally. Patient was also having shortness of breath. CT was read as evidence of right ventricular strain, echo be pending troponin is negative. Patient is mildly hyponatremic is on Bactrim for UTI patient continues to complain of burning sensation patient is presently in atrial fibrillation with rapid ventricular rate. Cardiology and pulmonology evaluated the patient 11/18/2022 Patient is seen and evaluated and follow-up and currently has been transitioned to oral eliquis. Patient being followed by cardiology along with pulmonary maintained on Cardizem although metoprolol being adjusted and increased and working on weaning Cardizem drip. Patient continues on 3 L via nasal cannula and does not normally wear oxygen outpatient also noted to have some wheezing and is receiving DuoNeb treatments along with now being started on low-dose steroids. Will add sliding scale and monitor Accu-Cheks before meals and at bedtime his blood sugars were mildly elevated. Patient denies having any burning or frequency with urination at this time. Patient is receiving IV Lasix and sodium level continues to be 130 and potassium level borderline. We'll continue lower dose IV Lasix as patient is having an acute on chronic CHF exacerbation as well. Patient was just notified that her in the emergency department in respiratory distress. Daughter is at the bedside. Patient with weakness would recommend PT/OT therapy evaluation. Recommend follow-up labs in the a.m. Chest x-ray ordered and pending. November 19: I assumed care of the patient today. Breathing is better. Feels a bit better. He was in atrial fibrillation. On eliquis. Patient's pulmonary hypertension is felt to be more chronic. The symptoms suggested RAFAEL/COPD. November 20: Remains in A. fib. Heart rate just above 100. Had a good breakfast. Tired this morning is could not sleep last night. Lopressor increased to 75 mg twice a day. We'll increase Cardizem to 30 mg 4 times a day November 21: Sitting up in a recliner. Some shortness of breath. Remains in A. fib heart rate in 1 teens. November 22: Patient has been around the room. Breathing better. A. fib. Remains just above 100. We will increase Lopressor 100 mg twice a day. November 23: Breathing better. Up in a recliner. Eating well. 2 L nasal cannula. Patient was to go home. Not keen for rehab. November 24: Patient been up in a recliner. Congested cough. Not really able to expectorate. Mucinex added. Patient was seen by pulmonary and oncology both cleared for discharge. Patient daughter at the bedside reluctant about going home. Patient's recently in the hospital. Several questions at length and answered. They're looking for assurance that patient will not be readmitted. I did explain I could not do the same. Total time spent today about 55 minutes November 25: In bed. Feeling better. Oral intake good. Discussed with a handout from pulmonary. He wants 5 more days of Ceftin. Also discussed with egg processing supervisor Dr. Nolan. Patient to go home on current dose. Discussion and discharge planning more than 35 minutes On examination: VITAL SIGNS: He 7.8, 94, 20, 126/74, 96% on 3 L GENERAL APPEARANCE: Reclining in bed HEENT: Normal external appearance of nose and ear. Oral cavity normal EYES: Pupils equal. Conjunctiva normal. NECK: JVD not raised. Mass not palpable. RESPIRATORY: Respiratory effort increased. Lungs decreased breath sounds CARDIOVASCULAR: Heart sounds irregular No edema. ABDOMEN: Soft. Liver and spleen not palpable. No tenderness. No mass palpable. PSYCHIATRY: Alert and oriented x3. Mood and affect normal. INVESTIGATIONS, reviewed in the clinical context: November 24: Potassium 4.9 creatinine 0.83 November 23: White count 8.8 hemoglobin 12.2 potassium 5.4 creatinine 0.85 November 22: WBC 10.6 hemoglobin 13.1 platelets was 27 potassium 4.9 creatinine 0.88 White count 11.6 hemoglobin 12.5 platelets 378 potassium 4.4 creatinine 1.02 2-D echocardiogram: EF more than 70%. Moderate aortic valve sclerosis. Moderate to severe pulmonary hypertension. Assessment: -Acute Subsegmental pulmonary embolism: No right heart strain on 2-D echo. eliquis. -Acute hypoxic respiratory failure secondary to pulmonary embolism On 2 L nasal cannula -Chronic hypoxic respiratory failure secondary to COPD -COPD, in a ex-smoker acute exacerbation. DuoNeb 4 times a day. Symbicort. Oral prednisone -Acute on chronic congestive heart failure, acute exacerbation with preserved EF: Better Lasix 40 mg by mouth daily -New onset atrial fibrillation with rapid ventricular rate : Better, Lopressor 100 mg twice a day. Cardizem CD 180 mg a day. eliquis -Recent UTI which was treated as an outpatient with Bactrim continues to have burning sensation although urinalysis is negative for urinary tract infection patient will be started on Mycostatin powder for possible vaginal yeast infection and peritoneum -Essential Hypertension Lopressor, Cardizem -History of uterine cancer status post hysterectomy -Morbid obesity with a BMI of 53.9 Weight loss measures -No code, per patient wishes Disposition: Home Plan - Discharge Summary Discharge Rx Participant: No New Discharge Prescriptions: New Ipratropium-Albuterol Nebulize [Duoneb 0.5 mg-3 mg/3 ml Soln] 3 ml INHALATION TID #90 each predniSONE 10 mg PO DAILY #30 tab cefUROXime axetiL [Ceftin] 500 mg PO BID #10 tab Diltiazem Cd [Cardizem CD] 180 mg PO DAILY #30 cap Apixaban [Eliquis] 5 mg PO BID #60 tab Potassium Chloride ER [K-Dur 20] 20 meq PO DAILY #30 tab Metoprolol Tartrate [Lopressor] 100 mg PO BID #60 tablet Nystatin 100,000Unit/gm Cream [Mycostatin Cream] 1 applic TOPICAL TID each Acetaminophen Tab [Tylenol] 650 mg PO Q6HR PRN tab PRN Reason: Mild Pain Or Fever > 100.5 guaiFENesin [Mucinex] 600 mg PO QID #30 tab Continue Omeprazole [PriLOSEC] 20 mg PO DAILY HYDROcodone/APAP 7.5-325MG [[place] 7.5-325] 1 tab PO Q8H Albuterol Nebulized [Ventolin Nebulized] 2.5 mg INHALATION RT-BID PRN PRN Reason: Shortness Of Breath Furosemide [Lasix] 40 mg PO DAILY Fluticasone Propion/Salmeterol [Advair Hfa 230-21 Mcg Inhaler] 2 puff INHALATION RT-DAILY Discontinued Metoprolol Tartrate [Lopressor] 50 mg PO DAILY Losartan Potassium 100 mg PO DAILY Discharge Medication List Omeprazole [PriLOSEC] 20 mg PO DAILY 10/18/14 [History] HYDROcodone/APAP 7.5-325MG [[place] 7.5-325] 1 tab PO Q8H 06/15/18 [History] Albuterol Nebulized [Ventolin Nebulized] 2.5 mg INHALATION RT-BID PRN 11/16/22 [History] Fluticasone Propion/Salmeterol [Advair Hfa 230-21 Mcg Inhaler] 2 puff INHALATION RT-DAILY 11/16/22 [History] Furosemide [Lasix] 40 mg PO DAILY 11/16/22 [History] Acetaminophen Tab [Tylenol] 650 mg PO Q6HR PRN tab 11/25/22 [Rx] Apixaban [Eliquis] 5 mg PO BID #60 tab 11/25/22 [Rx] Diltiazem Cd [Cardizem CD] 180 mg PO DAILY #30 cap 11/25/22 [Rx] Ipratropium-Albuterol Nebulize [Duoneb 0.5 mg-3 mg/3 ml Soln] 3 ml INHALATION TID #90 each 11/25/22 [Rx] Metoprolol Tartrate [Lopressor] 100 mg PO BID #60 tablet 11/25/22 [Rx] Nystatin 100,000Unit/gm Cream [Mycostatin Cream] 1 applic TOPICAL TID each 11/25/22 [Rx] Potassium Chloride ER [K-Dur 20] 20 meq PO DAILY #30 tab 11/25/22 [Rx] cefUROXime axetiL [Ceftin] 500 mg PO BID #10 tab 11/25/22 [Rx] guaiFENesin [Mucinex] 600 mg PO QID #30 tab 11/25/22 [Rx] predniSONE 10 mg PO DAILY #30 tab 11/25/22 [Rx] Follow up Appointment(s)/Referral(s): [facility] [NON-STAFF] - Jason Dorman MD [Primary Care Provider] - 11/30/22 11:00 am Gabino Medellin MD [STAFF PHYSICIAN] - 12/07/22 2:15 pm (in [place] for intial appointment, if you would like to switch providers contact office ) Xena Lynch MD [STAFF PHYSICIAN] - 12/03/22 10:30 am Patient Instructions/Handouts: A-fib (Atrial Fibrillation) (DC), Pulmonary Embolism (DC) Activity/Diet/Wound Care/Special Instructions: dc if okay with cardiology antibiotics per pulmonary Discharge Disposition: HOME WITH HOME HEALTH SERVICES
== END 2022-11-25 16:01 | disposition home health service (06) | DRG 175 ==
LOC: EC 16:46 → 3SCARD 18:03
PROVIDERS: ADMIT Hospitalist; ATTEND Hospitalist
DX: I26.94 Multiple subsegmental thrombotic pulmonary emboli without acute cor pulmonale (principal); I50.33 Acute on chronic diastolic (congestive) heart failure; J96.21 Acute and chronic respiratory failure with hypoxia; J18.9 Pneumonia, unspecified organism; E87.1 Hypo-osmolality and hyponatremia; I48.19 Other persistent atrial fibrillation; J44.1 Chronic obstructive pulmonary disease with (acute) exacerbation; J98.11 Atelectasis; Z68.42 Body mass index [BMI] 45.0-49.9, adult; E66.01 Morbid (severe) obesity due to excess calories; G47.33 Obstructive sleep apnea (adult) (pediatric); I11.0 Hypertensive heart disease with heart failure; I27.20 Pulmonary hypertension, unspecified; K21.9 Gastro-esophageal reflux disease without esophagitis; Z87.891 Personal history of nicotine dependence; Z87.440 Personal history of urinary (tract) infections; Z66 Do not resuscitate; B37.31 Acute candidiasis of vulva and vagina; Z96.651 Presence of right artificial knee joint; Z85.42 Personal history of malignant neoplasm of other parts of uterus; Z90.710 Acquired absence of both cervix and uterus; Z63.4 Disappearance and death of family member; Z71.3 Dietary counseling and surveillance; Z88.6 Allergy status to analgesic agent; Z88.1 Allergy status to other antibiotic agents; Z88.0 Allergy status to penicillin; Z88.8 Allergy status to other drugs, medicaments and biological substances; Z79.51 Long term (current) use of inhaled steroids; Z79.899 Other long term (current) drug therapy; Z83.2 Family history of diseases of the blood and blood-forming organs and certain disorders involving the immune mechanism
CPT/HCPCS: 71045; 80048; 80053; 81001; 83036; 83735; 83880; 84484; 85025; 85610; 85730; 87070; 87205; 93005; 93306; 93970; 94640; 94760; 96365; 96366; 96367; 96375; 99285

== ENCOUNTER 2022-11-30 08:39 | Inpatient (IN) | payer MEDICARE ==
[2022-11-30 08:46] VITALS: TEMP 98.1
[2022-11-30 09:06] LABS: Basophils % (A) 0 %; Eosinophils # (A) 0.1 k/uL (0-0.7); Eosinophils % (A) 1 %; HCT 42.2 % (34.0-46.0); HGB 12.7 gm/dL (11.4-16.0); Hypochromasia Marked; Lymphocytes # (A) 2.2 k/uL (1.0-4.8); Lymphocytes % (A) 15 %; MCHC 30.1 g/dL (31.0-37.0); MCV 96.5 fL (80.0-100.0); Mean Platelet Volume 6.9; Monocytes # (A) 0.6 k/uL (0-1.0); Monocytes % (A) 4 %; Neutrophils # (A) 11.5 k/uL (1.3-7.7); Neutrophils % (A) 79 %; Platelet Count 374 k/uL (150-450); RBC 4.37 m/uL (3.80-5.40); RDW 14.3 % (11.5-15.5); WBC 14.6 k/uL (3.8-10.6)
[2022-11-30 09:14] LABS: INR 1.1 (<1.2); Partial Thromboplastin Time 22.1 sec (22.0-30.0); Prothrombin Time 11.5 sec (9.0-12.0)
--- NOTE | 2022-11-30 09:17 | XR ---
EXAMINATION TYPE: XR chest 1V portable DATE OF EXAM: 11/30/2022 COMPARISON: 11/23/2022 HISTORY: resp distress TECHNIQUE: Single frontal view of the chest is obtained. FINDINGS: There is no pleural effusion or pneumothorax seen. The cardiac silhouette size is within normal limits. A diffuse interstitial pattern with bibasilar infiltrate. Arthropathy of the shoulder. . IMPRESSION: 1. Correlate for CHF or interstitial pneumonitis with small left effusion.
--- NOTE | 2022-11-30 09:28 | ED ---
SOB HPI - General Chief Complaint: Shortness of Breath Stated Complaint: sob Time Seen by Provider: 11/30/22 08:40 Source: EMS Mode of arrival: EMS Limitations: no limitations - History of Present Illness Initial Comments: 86-year-old female presents to the emergency department from home. Daughters are at bedside and provided the history. States that the patient's went home on the eighth. She was hospitalized for CHF, COPD and pulmonary embolisms. She has been maintained on breathing treatments, steroids, antibiotics and Eliquis. Daughter denies any missed doses. The patient has not been doing well at home due to the of her . This morning the patient was in significant respiratory distress. They tried to give her breathing treatment. Noticed that her oxygen had been out of her nostrils. EMS was called. EMS found the patient have oxygen saturations in the 70s on her 3 L. She was given 2 DuoNeb breathing treatments by them and 125 of Solu-Medrol IM. Patient arrives and is in visible respiratory distress. Denies any chest pain. She is in A. fib with a known history of A. fib. No reported fevers or sick contacts. HPI is limited because of the patient's current status - Related Data Home Medications Medication Instructions Recorded Confirmed Omeprazole [PriLOSEC] 20 mg PO DAILY 10/18/14 11/30/22 HYDROcodone/APAP 7.5-325MG [[place] 1 tab PO Q8H 06/15/18 11/30/22 7.5-325] Albuterol Nebulized [Ventolin 2.5 mg INHALATION RT-BID PRN 11/16/22 11/30/22 Nebulized] Fluticasone Propion/Salmeterol 2 puff INHALATION RT-DAILY 11/16/22 11/30/22 [Advair Hfa 230-21 Mcg Inhaler] Furosemide [Lasix] 40 mg PO DAILY 11/16/22 11/30/22 Ipratropium-Albuterol Nebulize 3 ml INHALATION RT-TID 11/30/22 11/30/22 [Duoneb 0.5 mg-3 mg/3 ml Soln] predniSONE See Taper PO DAILY 11/30/22 11/30/22 Previous Rx's Medication Instructions Recorded Acetaminophen Tab [Tylenol] 650 mg PO Q6HR PRN tab 11/25/22 Apixaban [Eliquis] 5 mg PO BID #60 tab 11/25/22 Diltiazem Cd [Cardizem CD] 180 mg PO DAILY #30 cap 11/25/22 Metoprolol Tartrate [Lopressor] 100 mg PO BID #60 tablet 11/25/22 Nystatin 100,000Unit/gm Cream 1 applic TOPICAL TID each 11/25/22 [Mycostatin Cream] Potassium Chloride ER [K-Dur 20] 20 meq PO DAILY #30 tab 11/25/22 guaiFENesin [Mucinex] 600 mg PO QID #30 tab 11/25/22 Allergies Allergy/AdvReac Type Severity Reaction Status Date / Time aspirin Allergy Rash/Hives Verified 11/30/22 10:43 chlorpheniramine polistirex Allergy Rash/Hives Verified 11/30/22 10:43 [From Tussionex] doxycycline Allergy Rash/Hives Verified 11/30/22 10:43 hydrocodone polistirex Allergy Rash/Hives Verified 11/30/22 10:43 [From Tussionex] levofloxacin Allergy Rash/Hives Verified 11/30/22 10:43 nickel Allergy Rash/Hives Verified 11/30/22 10:43 nitrofurantoin Allergy Nausea & Verified 11/30/22 10:43 Vomiting & Diarrhea nitrofurantoin Allergy Nausea & Verified 11/30/22 10:43 macrocrystalline Vomiting & [From Macrobid] Diarrhea Penicillins Allergy Rash/Hives Verified 11/30/22 10:43 tramadol HCl [From Ultram] Allergy Itching Verified 11/30/22 10:43 Review of Systems ROS Statement: Those systems with pertinent positive or pertinent negative responses have been documented in the HPI. ROS Other: All systems not noted in ROS Statement are negative. Past Medical History Past Medical History: Cancer, COPD, GERD/Reflux, Hypertension Additional Past Medical History / Comment(s): HX UTERINE CA, HX COLITIS, POLYPS History of Any Multi-Drug Resistant Organisms: None Reported Past Surgical History: Cholecystectomy, Hysterectomy, Joint Replacement Additional Past Surgical History / Comment(s): right knee replacement Past Anesthesia/Blood Transfusion Reactions: No Reported Reaction Past Psychological History: No Psychological Hx Reported Smoking Status: Former smoker Past Alcohol Use History: None Reported Past Drug Use History: None Reported - Past Family History Mother Family Medical History: Cancer Additional Family Medical History / Comment(s): LUNG Son(s) Family Medical History: Cancer General Exam Limitations: physical limitation General appearance: alert, anxious, in distress Head exam: Present: atraumatic, normocephalic, normal inspection Eye exam: Present: normal appearance, PERRL, EOMI. Absent: scleral icterus, conjunctival injection, periorbital swelling ENT exam: Present: mucous membranes dry Respiratory exam: Present: respiratory distress, rales, accessory muscle use, decreased breath sounds Cardiovascular Exam: Present: tachycardia, irregular rhythm GI/Abdominal exam: Present: soft, normal bowel sounds. Absent: distended, tenderness, guarding, rebound, rigid Extremities exam: Present: pedal edema Skin exam: Present: warm, dry, intact, normal color. Absent: rash Course Vital Signs 11/30/22 11/30/22 11/30/22 08:40 08:44 08:45 Temperature 98.1 F Pulse Rate 114 H 108 H 105 H Respiratory 34 H 25 H 24 Rate Blood Pressure 166/128 O2 Sat by Pulse 96 96 96 Oximetry Fraction of Inspired Oxygen (FIO2) 11/30/22 11/30/22 11/30/22 08:46 08:47 09:00 Temperature Pulse Rate 107 H Respiratory 34 H 24 Rate Blood Pressure 166/128 O2 Sat by Pulse 99 Oximetry Fraction of 100 Inspired Oxygen (FIO2) 11/30/22 11/30/22 11/30/22 09:15 09:30 09:45 Temperature Pulse Rate 111 H 101 H 104 H Respiratory 28 H 26 H 26 H Rate Blood Pressure 147/82 154/111 132/72 O2 Sat by Pulse 98 97 97 Oximetry Fraction of Inspired Oxygen (FIO2) 11/30/22 11/30/22 11/30/22 10:00 10:30 11:00 Temperature Pulse Rate 85 93 94 Respiratory 26 H 24 30 H Rate Blood Pressure 150/81 129/82 O2 Sat by Pulse 96 98 71 L Oximetry Fraction of Inspired Oxygen (FIO2) 11/30/22 11:30 Temperature Pulse Rate 93 Respiratory 30 H Rate Blood Pressure 97/48 O2 Sat by Pulse 81 L Oximetry Fraction of Inspired Oxygen (FIO2) Medical Decision Making - Medical Decision Making Was pt. sent in by a medical professional or institution (, PA, PAPER MAKING MACHINE OPERATOR, urgent care, hospital, or correction...) When possible be specific @ -No Did you speak to anyone other than the patient for history (EMS, parent, family, police, friend...)? What history was obtained from this source @ -EMS, daughters provide history and patients status since discharge Did you review nursing and triage notes (agree or disagree)? Why? @ -I reviewed and agree with nursing and triage notes Were old charts reviewed (outside hosp., previous admission, EMS record, old EKG, old radiological studies, urgent care reports/EKG's, correction records)? Report findings @ -old charts were reviewed - discharge summary from november 26 Differential Diagnosis (chest pain, altered mental status, abdominal pain women, abdominal pain men, vaginal bleeding, weakness, fever, dyspnea, syncope, headache, dizziness, GI bleed, back pain, seizure, CVA, palpatations, mental health, musculoskeletal)? @ -pneumonia, chf exacerbation, pe, covid EKG interpreted by me (3pts min.). @ -Yes and demonstrates A. fib with a rate of 112. QRS 69. QTC of 359. Significant baseline artifact. X-rays interpreted by me (1pt min.). @ -yes and demonstrates multifocal opacities CT interpreted by me (1pt min.). @ -None done U/S interpreted by me (1pt. min.). @ -None done What testing was considered but not performed or refused? (CT, X-rays, U/S, labs)? Why? @ -None What meds were considered but not given or refused? Why? @ -antibiotics, steroids, lasix Did you discuss the management of the patient with other professionals (professionals i.e. , PA, PAPER MAKING MACHINE OPERATOR, lab, RT, psych nurse, vp digital marketing social media and crm, occupational health and safety adviser, teacher, energy control officer, telephonic nurse case manager)? Give summary @ -Dr. Porter took admission Was smoking cessation discussed for >3mins.? @ -No Was critical care preformed (if so, how long)? @ -yes, 55 minutes Were there social determinants of health that impacted care today? How? (Homelessness, low income, unemployed, alcoholism, drug addiction, trans portation, low edu. Level, literacy, decrease access to med. care, alf, rehab)? @ -No Was there de-escalation of care discussed even if they declined (Discuss DNR or withdrawal of care, Hospice)? DNR status @ -yes - family made patient hospice What co-morbidities impacted this encounter? (DM, HTN, Smoking, COPD, CAD, Can cer, CVA, ARF, Chemo, Hep., AIDS, mental health diagnosis, sleep apnea, morbid obesity)? @ -chf, afib Was patient admitted / discharged? Hospital course, mention meds given and route, prescriptions, significant lab abnormalities, going to OR and other pertinent info. @ -Upon arrival patient was promptly placed in a trauma bay 1. Thorough h istory and physical exam was performed. Patient was transitioned from CPAP to BiPAP. IV access is established and laboratories is a conducted. Patient has a leukocytosis of 14.6. BNP is 6670. Blood gas demonstrates that the patient has a CO2 of 62. She was given 60 mg of Lasix IV. He recommended admission. Spoke with Dr. Porter. He does present to the ED to evaluate the patient. Family w yasir to make the patient comfort care. BiPAP is removed. Patient started on morphine and Ativan. Hospitalist is called to consult on the patient. She is resting comfortably at this time with a poor prognosis Undiagnosed new problem with uncertain prognosis? @ -yes Drug Therapy requiring intensive monitoring for toxicity (Heparin, Nitro, Insulin, Cardizem)? @ -No Were any procedures done? @ -No Diagnosis/symptom? @ -acute hypoxic resp failure, bipap dependant, chf exacerbation, leukocytosis Acute, or Chronic, or Acute on Chronic? @ -acute on chronic Uncomplicated (without systemic symptoms) or Complicated (systemic symptoms)? @ -complicated Side effects of treatment? @ -allergic reaction, quinn Exacerbation, Progression, or Severe Exacerbation? @ -yes Poses a threat to life or bodily function? How? (Chest pain, [place], [place], pneumonia, PE, COPD, DKA, ARF, appy, cholecystitis, CVA, Diverticulitis, Homicidal, Suicidal, threat to staff... and all critical care pts) @ -yes - patient will be transitioned to hospice - Lab Data Result diagrams: 11/30/22 08:59 11/30/22 08:59 Lab Results 11/30/22 11/30/22 11/30/22 Range/Units 08:45 08:59 08:59 WBC 14.6 H (3.8-10.6) k/uL RBC 4.37 (3.80-5.40) m/uL Hgb 12.7 (11.4-16.0) gm/dL Hct 42.2 (34.0-46.0) % MCV 96.5 (80.0-100.0) fL MCH 29.0 (25.0-35.0) pg MCHC 30.1 L (31.0-37.0) g/dL RDW 14.3 (11.5-15.5) % Plt Count 374 (150-450) k/uL MPV 6.9 Neutrophils % 79 % Lymphocytes % 15 % Monocytes % 4 % Eosinophils % 1 % Basophils % 0 % Neutrophils # 11.5 H (1.3-7.7) k/uL Lymphocytes # 2.2 (1.0-4.8) k/uL Monocytes # 0.6 (0-1.0) k/uL Eosinophils # 0.1 (0-0.7) k/uL Basophils # 0.0 (0-0.2) k/uL Hypochromasia Marked PT 11.5 (9.0-12.0) sec INR 1.1 (<1.2) APTT 22.1 (22.0-30.0) sec Sample Site ABG pH (7.35-7.45) ABG pCO2 (35-45) mmHg ABG pO2 (83-108) mmHg ABG HCO3 (21-25) mmol/L ABG Total CO2 (19-24) mmol/L ABG O2 Saturation (94-97) % ABG Base Excess mmol/L Pepe Test VBG pH 7.24 L (7.31-7.41) VBG pCO2 97 H* (37-51) mmHg VBG HCO3 40 H (24-28) mmol/L FiO2 % Sodium (137-145) mmol/L Potassium (3.5-5.1) mmol/L Chloride (98-107) mmol/L Carbon Dioxide (22-30) mmol/L Anion Gap mmol/L BUN (7-17) mg/dL Creatinine (0.52-1.04) mg/dL Est GFR (CKD-EPI)AfAm (>60 ml/min/1.73 sqM) Est GFR (CKD-EPI)NonAf (>60 ml/min/1.73 sqM) Glucose (74-99) mg/dL Plasma Lactic Acid Angelo (0.7-2.0) mmol/L Calcium (8.4-10.2) mg/dL Magnesium (1.6-2.3) mg/dL Total Bilirubin (0.2-1.3) mg/dL AST (14-36) U/L ALT (4-34) U/L Alkaline Phosphatase (38-126) U/L Troponin I (0.000-0.034) ng/mL NT-Pro-B Natriuret Pep pg/mL Total Protein (6.3-8.2) g/dL Albumin (3.5-5.0) g/dL 11/30/22 11/30/22 11/30/22 Range/Units 08:59 08:59 08:59 WBC (3.8-10.6) k/uL RBC (3.80-5.40) m/uL Hgb (11.4-16.0) gm/dL Hct (34.0-46.0) % MCV (80.0-100.0) fL MCH (25.0-35.0) pg MCHC (31.0-37.0) g/dL RDW (11.5-15.5) % Plt Count (150-450) k/uL MPV Neutrophils % % Lymphocytes % % Monocytes % % Eosinophils % % Basophils % % Neutrophils # (1.3-7.7) k/uL Lymphocytes # (1.0-4.8) k/uL Monocytes # (0-1.0) k/uL Eosinophils # (0-0.7) k/uL Basophils # (0-0.2) k/uL Hypochromasia PT (9.0-12.0) sec INR (<1.2) APTT (22.0-30.0) sec Sample Site ABG pH (7.35-7.45) ABG pCO2 (35-45) mmHg ABG pO2 (83-108) mmHg ABG HCO3 (21-25) mmol/L ABG Total CO2 (19-24) mmol/L ABG O2 Saturation (94-97) % ABG Base Excess mmol/L Pepe Test VBG pH (7.31-7.41) VBG pCO2 (37-51) mmHg VBG HCO3 (24-28) mmol/L FiO2 % Sodium 138 (137-145) mmol/L Potassium 4.7 (3.5-5.1) mmol/L Chloride 92 L (98-107) mmol/L Carbon Dioxide 40 H (22-30) mmol/L Anion Gap 6 mmol/L BUN 26 H (7-17) mg/dL Creatinine 0.89 (0.52-1.04) mg/dL Est GFR (CKD-EPI)AfAm 68 (>60 ml/min/1.73 sqM) Est GFR (CKD-EPI)NonAf 59 (>60 ml/min/1.73 sqM) Glucose 152 H (74-99) mg/dL Plasma Lactic Acid Angelo 1.3 (0.7-2.0) mmol/L Calcium 7.9 L (8.4-10.2) mg/dL Magnesium 2.1 (1.6-2.3) mg/dL Total Bilirubin 0.7 (0.2-1.3) mg/dL AST 35 (14-36) U/L ALT 46 H (4-34) U/L Alkaline Phosphatase 135 H (38-126) U/L Troponin I <0.012 (0.000-0.034) ng/mL NT-Pro-B Natriuret Pep pg/mL Total Protein 6.7 (6.3-8.2) g/dL Albumin 3.6 (3.5-5.0) g/dL 11/30/22 11/30/22 Range/Units 08:59 09:55 WBC (3.8-10.6) k/uL RBC (3.80-5.40) m/uL Hgb (11.4-16.0) gm/dL Hct (34.0-46.0) % MCV (80.0-100.0) fL MCH (25.0-35.0) pg MCHC (31.0-37.0) g/dL RDW (11.5-15.5) % Plt Count (150-450) k/uL MPV Neutrophils % % Lymphocytes % % Monocytes % % Eosinophils % % Basophils % % Neutrophils # (1.3-7.7) k/uL Lymphocytes # (1.0-4.8) k/uL Monocytes # (0-1.0) k/uL Eosinophils # (0-0.7) k/uL Basophils # (0-0.2) k/uL Hypochromasia PT (9.0-12.0) sec INR (<1.2) APTT (22.0-30.0) sec Sample Site lrad ABG pH 7.38 (7.35-7.45) ABG pCO2 62 H (35-45) mmHg ABG pO2 131 H (83-108) mmHg ABG HCO3 37 H (21-25) mmol/L ABG Total CO2 39 H (19-24) mmol/L ABG O2 Saturation 97.4 H (94-97) % ABG Base Excess 12.0 mmol/L Pepe Test Yes VBG pH (7.31-7.41) VBG pCO2 (37-51) mmHg VBG HCO3 (24-28) mmol/L FiO2 100 % Sodium (137-145) mmol/L Potassium (3.5-5.1) mmol/L Chloride (98-107) mmol/L Carbon Dioxide (22-30) mmol/L Anion Gap mmol/L BUN (7-17) mg/dL Creatinine (0.52-1.04) mg/dL Est GFR (CKD-EPI)AfAm (>60 ml/min/1.73 sqM) Est GFR (CKD-EPI)NonAf (>60 ml/min/1.73 sqM) Glucose (74-99) mg/dL Plasma Lactic Acid Angelo (0.7-2.0) mmol/L Calcium (8.4-10.2) mg/dL Magnesium (1.6-2.3) mg/dL Total Bilirubin (0.2-1.3) mg/dL AST (14-36) U/L ALT (4-34) U/L Alkaline Phosphatase (38-126) U/L Troponin I (0.000-0.034) ng/mL NT-Pro-B Natriuret Pep 6670 pg/mL Total Protein (6.3-8.2) g/dL Albumin (3.5-5.0) g/dL Critical Care Time Critical Care Time: Yes Critical Care Time: 45 minutes Disposition Clinical Impression: BiPAP (biphasic positive airway pressure) dependence, Hypoxia, A-fib, CHF (congestive heart failure) Disposition: OTHER INSTITUTION NOT DEFINED Is patient prescribed a controlled substance at d/c from ED?: No Time of Disposition: 10:30 Decision to Admit Reason: Admit from EC Decision Date: 11/30/22 Decision Time: 10:30
[2022-11-30 09:31] LABS: ALT 46 U/L (4-34); AST 35 U/L (14-36); African American GFR (CKD) 68 (>60 ml/min/1.73 sqM); Albumin 3.6 g/dL (3.5-5.0); Alkaline Phosphatase 135 U/L (38-126); Anion Gap 6 mmol/L; Blood Urea Nitrogen 26 mg/dL (7-17); Calcium 7.9 mg/dL (8.4-10.2); Chloride 92 mmol/L (98-107); Glucose 152 mg/dL (74-99); Magnesium 2.1 mg/dL (1.6-2.3); Non-African American GFR(CKD) 59 (>60 ml/min/1.73 sqM); Potassium 4.7 mmol/L (3.5-5.1); Sodium 138 mmol/L (137-145); Total Bilirubin 0.7 mg/dL (0.2-1.3); Total Protein 6.7 g/dL (6.3-8.2)
[2022-11-30 09:36] LABS: VBG PH 7.24 (7.31-7.41)
[2022-11-30 09:38] LABS: Carbon Dioxide 40 mmol/L (22-30)
[2022-11-30 09:58] LABS: Allen Test Performed? Yes
[2022-11-30 10:02] LABS: ABG HCO3 37 mmol/L (21-25); ABG Oxygen Saturation 97.4 % (94-97); ABG PCO2 62 mmHg (35-45); ABG PH 7.38 (7.35-7.45); ABG PO2 131 mmHg (83-108); ABG TCO2 39 mmol/L (19-24)
[2022-11-30] MEDS ORDERED: LORazepam 2 MG/ML INJ IV STA (10:27)
[2022-11-30] MEDS ORDERED: FUROSEMIDE 10 MG/ML 10 ML VIAL IV STA (10:28)
[2022-11-30] MEDS ORDERED: NALOXONE 0.4 MG/ML 1 ML VIAL IV PRN (10:34)
[2022-11-30] MEDS ORDERED: MORPHINE SULFATE 2 MG/ML SYRINGE IVP PRN (11:16)
[2022-11-30] MEDS ORDERED: SCOPOLAMINE 1 MG/72 HR PATCH TRANSDERM STA (11:17)
[2022-11-30 11:34] VITALS: BP 97/48; PULSE 93; RESP 30
--- NOTE | 2022-11-30 11:46 | P.HPIM ---
History of Present Illness H&P Date: 11/30/22 Chief Complaint: Short of breath Patient of Dr. Dorman, Patient was recently hospital from November 17 through November 26. Was transferred from outside hospital for a pulmonary embolism patient presented with chest pain found to have subsegmental PE bilaterally. Was placed on eliquis. Also treated for atrial fibrillation with rapid ventricular rate, acute hypoxic respiratory failure, COPD exacerbation, CHF exacerbation. Patient is recommended PTOT but decided to go home as daughter is able to take care of her. Patient just lost her about 10 days prior and the family is going through bereavement. Patient now presents to the ER short of breath. No doing well. Patient's son and daughter the bedside. Patient has remained short of breath and breathing got worse. 's had taken place 2 days ago. Did not sit well with the patient. Patient become more tearful uncomfortable short of breath. Difficulty breathing. Patient was seen by the ER physician Dr. Kirby. Family didn't elevated want to go with comfort measures. I came to the room and spoke to the patient in the presence of both son and daughter. Patient was saying I want to at the same dose repeated herself she does not want to and wants to live. She keeps talking about her were diet. I spoke to son and daughter. This point we decided to proceed with a consultation to cardiology pulmonary and treat her as per patient wishes. We did understand that patient's going back and forth. Review of systems: Could not be obtained as patient other in distress Physical examination: VITAL SIGNS: 98.1, 114, 34, 16 6 x 1 28, 96% on BiPAP on presentation GENERAL: BMI 50.7, declining in bed, short of breath uncomfortable. EYES: Pupils equal. Conjunctiva normal. HEENT: External appearance of nose and ears normal, oral cavity dry mucous membrane. NECK: JVD unable to assess; masses not palpable. HEART: First and second heart sounds are normal; no edema. LUNGS: Respiratory rate increased; decreased breath sounds wheezing some crackles. ABDOMEN: Soft, nontender, liver spleen not palpable, no masses palpable. PSYCH: Lethargic but answer occasional questionl. MUSCULOSKELETAL:No Clubbing/cyanosis;muscles-grossly intact NEUROLOGICAL: Cranial nerves grossly intact; no facial asymmetry, power and sensation grossly intact. LYMPHATICS: No lymph nodes palpable in the axilla and neck INVESTIGATIONS, reviewed in the clinical context: WBC 14.6 hemoglobin 12.7 platelets 374 ABG: PH 7.3E CO2 62 pO2 131 Sodium 138 potassium 4.7 BUN 20 12/08/2014 0.89 proBNP 6670 Troponin I less than 0.012 EKG tracing personally reviewed by me-atrial fibrillation. 112 rate Chest x-ray film personally reviewed by me-pulmonary edema/infiltrates Recent testing 2-D echocardiogram: EF more than 70%. Moderate aortic valve sclerosis. Moderate to severe pulmonary hypertension. Assessment and plan: -Probable bilateral pneumonia, suspected gram-negative organism IV meropenem -subAcute Subsegmental pulmonary embolism: Diagnosed recently eliquis. -Acute hypoxic respiratory failure secondary to COPD exacerbation, pneumonia Requiring BiPAP -Chronic hypoxic respiratory failure secondary to COPD Home oxygen -Acute COPD, exacerbation in a ex-smoker DuoNeb 4 times a day. Nebulized Pulmicort and Perforomist. -Acute on chronic congestive heart failure, acute exacerbation with preserved EF 70%: Consult oncology. IV Lasix. -Persistent atrial fibrillation with rapid ventricular rate Lopressor 100 mg twice a day. Cardizem CD 180 mg a day. eliquis. Consult ca rdiology -Essential Hypertension Lopressor, Cardizem -History of uterine cancer status post hysterectomy -Morbid obesity with a BMI of 50.7 Weight loss measures -No code, per patient wishes Aspirin patient's current wishes patient to be treated. Consult cardiology and pulmonary. Above medications will be ordered. Care was discussed with patient's son and daughter at the bedside. Prognosis is guarded. Discussed with the ER physician Dr. Kirby and the nurse. Past Medical History Past Medical History: Cancer, COPD, GERD/Reflux, Hypertension Additional Past Medical History / Comment(s): HX UTERINE CA, HX COLITIS, POLYPS History of Any Multi-Drug Resistant Organisms: None Reported Past Surgical History: Cholecystectomy, Hysterectomy, Joint Replacement Additional Past Surgical History / Comment(s): right knee replacement Past Anesthesia/Blood Transfusion Reactions: No Reported Reaction Past Psychological History: No Psychological Hx Reported Smoking Status: Former smoker Past Alcohol Use History: None Reported Past Drug Use History: None Reported - Past Family History Mother Family Medical History: Cancer Additional Family Medical History / Comment(s): LUNG Son(s) Family Medical History: Cancer Medications and Allergies Home Medications Medication Instructions Recorded Confirmed Type Omeprazole [PriLOSEC] 20 mg PO DAILY 10/18/14 11/30/22 History HYDROcodone/APAP 7.5-325MG [[place] 1 tab PO Q8H 06/15/18 11/30/22 History 7.5-325] Albuterol Nebulized [Ventolin 2.5 mg INHALATION RT-BID PRN 11/16/22 11/30/22 History Nebulized] Fluticasone Propion/Salmeterol 2 puff INHALATION RT-DAILY 11/16/22 11/30/22 History [Advair Hfa 230-21 Mcg Inhaler] Furosemide [Lasix] 40 mg PO DAILY 11/16/22 11/30/22 History Acetaminophen Tab [Tylenol] 650 mg PO Q6HR PRN tab 11/25/22 11/30/22 Rx Apixaban [Eliquis] 5 mg PO BID #60 tab 11/25/22 11/30/22 Rx Diltiazem Cd [Cardizem CD] 180 mg PO DAILY #30 cap 11/25/22 11/30/22 Rx Metoprolol Tartrate [Lopressor] 100 mg PO BID #60 tablet 11/25/22 11/30/22 Rx Nystatin 100,000Unit/gm Cream 1 applic TOPICAL TID each 11/25/22 11/30/22 Rx [Mycostatin Cream] Potassium Chloride ER [K-Dur 20] 20 meq PO DAILY #30 tab 11/25/22 11/30/22 Rx guaiFENesin [Mucinex] 600 mg PO QID #30 tab 11/25/22 11/30/22 Rx Ipratropium-Albuterol Nebulize 3 ml INHALATION RT-TID 11/30/22 11/30/22 History [Duoneb 0.5 mg-3 mg/3 ml Soln] predniSONE See Taper PO DAILY 11/30/22 11/30/22 History Allergies Allergy/AdvReac Type Severity Reaction Status Date / Time aspirin Allergy Rash/Hives Verified 11/30/22 10:43 chlorpheniramine polistirex Allergy Rash/Hives Verified 11/30/22 10:43 [From Tussionex] doxycycline Allergy Rash/Hives Verified 11/30/22 10:43 hydrocodone polistirex Allergy Rash/Hives Verified 11/30/22 10:43 [From Tussionex] levofloxacin Allergy Rash/Hives Verified 11/30/22 10:43 nickel Allergy Rash/Hives Verified 11/30/22 10:43 nitrofurantoin Allergy Nausea & Verified 11/30/22 10:43 Vomiting & Diarrhea nitrofurantoin Allergy Nausea & Verified 11/30/22 10:43 macrocrystalline Vomiting & [From Macrobid] Diarrhea Penicillins Allergy Rash/Hives Verified 11/30/22 10:43 tramadol HCl [From Ultram] Allergy Itching Verified 11/30/22 10:43 Physical Exam Vitals: Vital Signs Temp Pulse Resp BP Pulse Ox FiO2 11/30/22 09:45 104 H 26 H 132/72 97 11/30/22 09:30 101 H 26 H 154/111 97 11/30/22 09:15 111 H 28 H 147/82 98 11/30/22 09:00 107 H 24 166/128 99 11/30/22 08:47 100 11/30/22 08:46 34 H 11/30/22 08:45 105 H 24 96 11/30/22 08:44 108 H 25 H 96 11/30/22 08:40 98.1 F 114 H 34 H 166/128 96 Intake and Output 11/29/22 11/30/22 11/30/22 22:59 06:59 14:59 Other: Weight 125.645 kg Results CBC & Chem 7: 11/30/22 08:59 11/30/22 08:59 Labs: Abnormal Lab Results - Last 24 Hours (Table) 11/30/22 11/30/22 11/30/22 Range/Units 08:45 08:59 08:59 WBC 14.6 H (3.8-10.6) k/uL MCHC 30.1 L (31.0-37.0) g/dL Neutrophils # 11.5 H (1.3-7.7) k/uL ABG pCO2 (35-45) mmHg ABG pO2 (83-108) mmHg ABG HCO3 (21-25) mmol/L ABG Total CO2 (19-24) mmol/L ABG O2 Saturation (94-97) % VBG pH 7.24 L (7.31-7.41) VBG pCO2 97 H* (37-51) mmHg VBG HCO3 40 H (24-28) mmol/L Chloride 92 L (98-107) mmol/L Carbon Dioxide 40 H (22-30) mmol/L BUN 26 H (7-17) mg/dL Glucose 152 H (74-99) mg/dL Calcium 7.9 L (8.4-10.2) mg/dL ALT 46 H (4-34) U/L Alkaline Phosphatase 135 H (38-126) U/L 11/30/22 Range/Units 09:55 WBC (3.8-10.6) k/uL MCHC (31.0-37.0) g/dL Neutrophils # (1.3-7.7) k/uL ABG pCO2 62 H (35-45) mmHg ABG pO2 131 H (83-108) mmHg ABG HCO3 37 H (21-25) mmol/L ABG Total CO2 39 H (19-24) mmol/L ABG O2 Saturation 97.4 H (94-97) % VBG pH (7.31-7.41) VBG pCO2 (37-51) mmHg VBG HCO3 (24-28) mmol/L Chloride (98-107) mmol/L Carbon Dioxide (22-30) mmol/L BUN (7-17) mg/dL Glucose (74-99) mg/dL Calcium (8.4-10.2) mg/dL ALT (4-34) U/L Alkaline Phosphatase (38-126) U/L
--- NOTE | 2022-11-30 11:47 | P.EN ---
Advance care planning: After saw the patient this morning. I got a call from the ER and spoke to patient's son over the phone. Patient now doing well. Son was there POA has discussed with the family members not they wish to proceed with comfort care. Questions were answered. I spoke to the nurse and the ER physician. Also communicated with the hospice team. Patient will be admitted to [facility] hospice. Time spent about 25 minutes
[2022-11-30] MEDS ORDERED: IPRATROPIUM-ALBUTEROL 3 ML NEB INHALATION SCH (12:00)
--- NOTE | 2022-11-30 20:25 | P.DS ---
Providers Date of admission: 11/30/22 10:34 Expected date of discharge: 11/30/22 Attending physician: Kameron Porter Primary care physician: Jason Dorman [facility] Course: Chief Complaint: Short of breath Patient of Dr. Dorman, Patient was recently hospital from November 17 through November 26. Was transferred from outside hospital for a pulmonary embolism patient presented with chest pain found to have subsegmental PE bilaterally. Was placed on eliquis. Also treated for atrial fibrillation with rapid ventricular rate, acute hypoxic respiratory failure, COPD exacerbation, CHF exacerbation. Patient is recommended PTOT but decided to go home as daughter is able to take care of her. Patient just lost her about 10 days prior and the family is going through bereavement. Patient now presents to the ER short of breath. No doing well. Patient's son and daughter the bedside. Patient has remained short of breath and breathing got worse. 's had taken place 2 days ago. Did not sit well with the patient. Patient become more tearful uncomfortable short of breath. Difficulty breathing. Patient was seen by the ER physician Dr. Kirby. Family didn't elevated want to go with comfort measures. I came to the room and spoke to the patient in the presence of both son and daughter. Patient was saying I want to at the same dose repeated herself she does not want to and wants to live. She keeps talking about her were diet. I spoke to son and daughter. This point we decided to proceed with a consultation to cardiology pulmonary and treat her as per patient wishes. We did understand that patient's going back and forth. Admitted to son called me. Family decided to proceed with comfort measures. Hospice was consulted. Physical examination: VITAL SIGNS: 98.1, 114, 34, 16 6 x 1 28, 96% on BiPAP on presentation GENERAL: BMI 50.7, declining in bed, short of breath uncomfortable. EYES: Pupils equal. Conjunctiva normal. HEENT: External appearance of nose and ears normal, oral cavity dry mucous membrane. NECK: JVD unable to assess; masses not palpable. HEART: First and second heart sounds are normal; no edema. LUNGS: Respiratory rate increased; decreased breath sounds wheezing some crackles. ABDOMEN: Soft, nontender, liver spleen not palpable, no masses palpable. PSYCH: Lethargic but answer occasional questionl. MUSCULOSKELETAL:No Clubbing/cyanosis;muscles-grossly intact NEUROLOGICAL: Cranial nerves grossly intact; no facial asymmetry, power and sensation grossly intact. LYMPHATICS: No lymph nodes palpable in the axilla and neck INVESTIGATIONS, reviewed in the clinical context: WBC 14.6 hemoglobin 12.7 platelets 374 ABG: PH 7.3E CO2 62 pO2 131 Sodium 138 potassium 4.7 BUN 20 12/08/2014 0.89 proBNP 6670 Troponin I less than 0.012 EKG tracing personally reviewed by me-atrial fibrillation. 112 rate Chest x-ray film personally reviewed by me-pulmonary edema/infiltrates Recent testing 2-D echocardiogram: EF more than 70%. Moderate aortic valve sclerosis. Moderate to severe pulmonary hypertension. Assessment and plan: -Probable bilateral pneumonia, suspected gram-negative organism IV meropenem -subAcute Subsegmental pulmonary embolism: Diagnosed recently avtar. -Acute hypoxic respiratory failure secondary to COPD exacerbation, pneumonia Requiring BiPAP -Chronic hypoxic respiratory failure secondary to COPD Home oxygen -Acute COPD, exacerbation in a ex-smoker DuoNeb 4 times a day. Nebulized Pulmicort and Perforomist. -Acute on chronic congestive heart failure, acute exacerbation with preserved EF 70%: Consult oncology. IV Lasix. -Persistent atrial fibrillation with rapid ventricular rate Lopressor 100 mg twice a day. Cardizem CD 180 mg a day. eliquis. Consult cardiology -Essential Hypertension Lopressor, Cardizem -History of uterine cancer status post hysterectomy -Morbid obesity with a BMI of 50.7 Weight loss measures -No code, per patient wishes Disposition: Hospice GIP Plan - Discharge Summary New Discharge Prescriptions: No Action Omeprazole [PriLOSEC] 20 mg PO DAILY HYDROcodone/APAP 7.5-325MG [[place] 7.5-325] 1 tab PO Q8H Albuterol Nebulized [Ventolin Nebulized] 2.5 mg INHALATION RT-BID PRN PRN Reason: Shortness Of Breath predniSONE See Taper PO DAILY Ipratropium-Albuterol Nebulize [Duoneb 0.5 mg-3 mg/3 ml Soln] 3 ml INHALATION RT-TID Furosemide [Lasix] 40 mg PO DAILY Fluticasone Propion/Salmeterol [Advair Hfa 230-21 Mcg Inhaler] 2 puff INHALATION RT-DAILY Diltiazem Cd [Cardizem CD] 180 mg PO DAILY #30 cap Apixaban [Eliquis] 5 mg PO BID #60 tab Potassium Chloride ER [K-Dur 20] 20 meq PO DAILY #30 tab Metoprolol Tartrate [Lopressor] 100 mg PO BID #60 tablet Nystatin 100,000Unit/gm Cream [Mycostatin Cream] 1 applic TOPICAL TID each Acetaminophen Tab [Tylenol] 650 mg PO Q6HR PRN tab PRN Reason: Mild Pain Or Fever > 100.5 guaiFENesin [Mucinex] 600 mg PO QID #30 tab Discharge Medication List Omeprazole [PriLOSEC] 20 mg PO DAILY 10/18/14 [History] HYDROcodone/APAP 7.5-325MG [[place] 7.5-325] 1 tab PO Q8H 06/15/18 [History] Albuterol Nebulized [Ventolin Nebulized] 2.5 mg INHALATION RT-BID PRN 11/16/22 [History] Fluticasone Propion/Salmeterol [Advair Hfa 230-21 Mcg Inhaler] 2 puff INHALATION RT-DAILY 11/16/22 [History] Furosemide [Lasix] 40 mg PO DAILY 11/16/22 [History] Acetaminophen Tab [Tylenol] 650 mg PO Q6HR PRN tab 11/25/22 [Rx] Apixaban [Eliquis] 5 mg PO BID #60 tab 11/25/22 [Rx] Diltiazem Cd [Cardizem CD] 180 mg PO DAILY #30 cap 11/25/22 [Rx] Metoprolol Tartrate [Lopressor] 100 mg PO BID #60 tablet 11/25/22 [Rx] Nystatin 100,000Unit/gm Cream [Mycostatin Cream] 1 applic TOPICAL TID each 11/25/22 [Rx] Potassium Chloride ER [K-Dur 20] 20 meq PO DAILY #30 tab 11/25/22 [Rx] guaiFENesin [Mucinex] 600 mg PO QID #30 tab 11/25/22 [Rx] Ipratropium-Albuterol Nebulize [Duoneb 0.5 mg-3 mg/3 ml Soln] 3 ml INHALATION RT-TID 11/30/22 [History] predniSONE See Taper PO DAILY 11/30/22 [History] Follow up Appointment(s)/Referral(s): Jason Dorman MD [Primary Care Provider] - 1-2 days Discharge Disposition: DISCH TO HOSPICE MED FACILTY
[2022-11-30] MEDS ORDERED: FUROSEMIDE 10 MG/ML 10 ML VIAL IV SCH (21:00)
== END 2022-11-30 13:28 | disposition hospice, inpatient (51) | DRG 177 ==
LOC: EC 08:39 → 5NMEDONC 10:34
PROVIDERS: ADMIT Hospitalist; ATTEND Hospitalist
PROC: 5A09357 Assistance with Respiratory Ventilation, Less than 24 Consecutive Hours, Continuous Positive Airway Pressure (ICD-10-PCS; principal; 2022-11-30)
DX: J15.6 Pneumonia due to other Gram-negative bacteria (principal); I26.94 Multiple subsegmental thrombotic pulmonary emboli without acute cor pulmonale; J96.21 Acute and chronic respiratory failure with hypoxia; I50.33 Acute on chronic diastolic (congestive) heart failure; Z68.43 Body mass index [BMI] 50.0-59.9, adult; J44.0 Chronic obstructive pulmonary disease with (acute) lower respiratory infection; J44.1 Chronic obstructive pulmonary disease with (acute) exacerbation; I48.19 Other persistent atrial fibrillation; I11.0 Hypertensive heart disease with heart failure; E66.01 Morbid (severe) obesity due to excess calories; K21.9 Gastro-esophageal reflux disease without esophagitis; Z66 Do not resuscitate; Z96.651 Presence of right artificial knee joint; Z87.891 Personal history of nicotine dependence; Z51.5 Encounter for palliative care; Z85.42 Personal history of malignant neoplasm of other parts of uterus; Z79.899 Other long term (current) drug therapy; Z79.01 Long term (current) use of anticoagulants; Z88.0 Allergy status to penicillin; Z88.6 Allergy status to analgesic agent; Z88.8 Allergy status to other drugs, medicaments and biological substances; Z88.1 Allergy status to other antibiotic agents; Z88.5 Allergy status to narcotic agent; Z63.4 Disappearance and death of family member
CPT/HCPCS: 36415; 36600; 71045; 80053; 82803; 82805; 83605; 83735; 83880; 84484; 85025; 85610; 85730; 93005; 94660; 96374; 96375; 96376; 99285; 99291

== ENCOUNTER 2022-11-30 11:43 | Inpatient (IN) | payer MEDICAID, MEDICARE ==
[2022-11-30] MEDS ORDERED: GLYCOPYRROLATE 0.2 MG/ML 2 ML VIAL IVP PRN (11:46)
[2022-11-30] MEDS ORDERED: LORazepam 2 MG/ML INJ IV PRN (11:46)
[2022-11-30] MEDS ORDERED: ACETAMINOPHEN SUPPOSITORY 650 MG SUPP RECTAL PRN (11:46)
[2022-11-30] MEDS ORDERED: ONDANSETRON 4 MG/2 ML VIAL IVP PRN (11:46)
[2022-11-30] MEDS ORDERED: MORPHINE SULFATE 4 MG/ML SYRINGE IV PRN (11:46)
[2022-11-30] MEDS ORDERED: DRY MOUTH SPRAY 44.3 SPRAY/44.3 ML SPRAY MUCOUS MEM PRN (11:46)
[2022-11-30] MEDS ORDERED: ATROPINE OPHTH SOLN 1% 5ML BTL SUBLINGUAL PRN (11:46)
[2022-11-30] MEDS ORDERED: MORPHINE SULFATE (100 MG/2 ML) 100 MG in SODIUM CHLORIDE 0.9% 100 ML IV SCH (12:00)
[2022-11-30] MEDS ORDERED: SODIUM CHLORIDE 0.9% 1,000 ML IV SCH (12:00)
[2022-11-30] MEDS ORDERED: SCOPOLAMINE 1 MG/72 HR PATCH TRANSDERM SCH (12:00)
--- NOTE | 2022-11-30 20:28 | P.DS ---
Providers Date of admission: 11/30/22 11:46 Expected date of discharge: 11/30/22 Attending physician: Kameron Porter Primary care physician: [place] Course: Patient admitted to [facility] hospice. Family the bedside. Comfort measures initiated. Including morphine drip. Several family members at the bedside. Late in today patient Cause of : COPD Plan - Discharge Summary New Discharge Prescriptions: No Action Omeprazole [PriLOSEC] 20 mg PO DAILY HYDROcodone/APAP 7.5-325MG [[place] 7.5-325] 1 tab PO Q8H Albuterol Nebulized [Ventolin Nebulized] 2.5 mg INHALATION RT-BID PRN PRN Reason: Shortness Of Breath predniSONE See Taper PO DAILY Ipratropium-Albuterol Nebulize [Duoneb 0.5 mg-3 mg/3 ml Soln] 3 ml INHALATION RT-TID Furosemide [Lasix] 40 mg PO DAILY Fluticasone Propion/Salmeterol [Advair Hfa 230-21 Mcg Inhaler] 2 puff INHALATION RT-DAILY Diltiazem Cd [Cardizem CD] 180 mg PO DAILY #30 cap Apixaban [Eliquis] 5 mg PO BID #60 tab Potassium Chloride ER [K-Dur 20] 20 meq PO DAILY #30 tab Metoprolol Tartrate [Lopressor] 100 mg PO BID #60 tablet Nystatin 100,000Unit/gm Cream [Mycostatin Cream] 1 applic TOPICAL TID each Acetaminophen Tab [Tylenol] 650 mg PO Q6HR PRN tab PRN Reason: Mild Pain Or Fever > 100.5 guaiFENesin [Mucinex] 600 mg PO QID #30 tab Discharge Medication List Omeprazole [PriLOSEC] 20 mg PO DAILY 10/18/14 [History] HYDROcodone/APAP 7.5-325MG [[place] 7.5-325] 1 tab PO Q8H 06/15/18 [History] Albuterol Nebulized [Ventolin Nebulized] 2.5 mg INHALATION RT-BID PRN 11/16/22 [History] Fluticasone Propion/Salmeterol [Advair Hfa 230-21 Mcg Inhaler] 2 puff INHALATION RT-DAILY 11/16/22 [History] Furosemide [Lasix] 40 mg PO DAILY 11/16/22 [History] Acetaminophen Tab [Tylenol] 650 mg PO Q6HR PRN tab 11/25/22 [Rx] Apixaban [Eliquis] 5 mg PO BID #60 tab 11/25/22 [Rx] Diltiazem Cd [Cardizem CD] 180 mg PO DAILY #30 cap 11/25/22 [Rx] Metoprolol Tartrate [Lopressor] 100 mg PO BID #60 tablet 11/25/22 [Rx] Nystatin 100,000Unit/gm Cream [Mycostatin Cream] 1 applic TOPICAL TID each 11/25/22 [Rx] Potassium Chloride ER [K-Dur 20] 20 meq PO DAILY #30 tab 11/25/22 [Rx] guaiFENesin [Mucinex] 600 mg PO QID #30 tab 11/25/22 [Rx] Ipratropium-Albuterol Nebulize [Duoneb 0.5 mg-3 mg/3 ml Soln] 3 ml INHALATION RT-TID 11/30/22 [History] predniSONE See Taper PO DAILY 11/30/22 [History] Follow up Appointment(s)/Referral(s): Jason Dorman MD [Primary Care Provider] - 1 Week Discharge Disposition: - Preliminary Cause of Preliminary Cause of : COPD
== END 2022-11-30 18:49 | disposition expired | DRG 951 ==
LOC: EC 11:43 → 5NMEDONC 11:46
PROVIDERS: ADMIT Hospitalist; ATTEND Hospitalist
DX: Z51.5 Encounter for palliative care (principal); J44.9 Chronic obstructive pulmonary disease, unspecified; Z66 Do not resuscitate; Z87.891 Personal history of nicotine dependence; Z79.899 Other long term (current) drug therapy; Z88.6 Allergy status to analgesic agent; Z88.8 Allergy status to other drugs, medicaments and biological substances; Z91.048 Other nonmedicinal substance allergy status; Z88.0 Allergy status to penicillin; Z88.5 Allergy status to narcotic agent; Z79.52 Long term (current) use of systemic steroids; Z79.891 Long term (current) use of opiate analgesic